=== PATIENT | male | born 1970 | race Caucasian/White ===

== ENCOUNTER 2017-09-29 07:13 | Emergency (ER) | payer OTHER ==
[~2017-09-29] VITALS: Ht 182.9 cm; Wt 104.7 kg
[~2017-09-29 07:13] MED LIST: LRT5 PO
[2017-09-29 07:21] VITALS: TEMP 36.7; Ht 182.9 cm; Wt 104.7 kg
[2017-09-29] MEDS ORDERED: HYDROmorphone INJ 2 MG/ML SYR/VIAL IV STA (07:27)
[2017-09-29] MEDS ORDERED: ONDANSETRON INJ 2 MG/ML 2 ML VIAL IV STA (07:27)
[2017-09-29] MEDS ORDERED: KETOROLAC TROMETHAMINE 30 MG/ML VIAL IV STA (07:27)
[2017-09-29 07:54] LABS: BASO % 0.2 %; BASO ABS # 0.03 K/uL (0-0.2); COMPLETE YES; EOS % 0.7 %; HEMATOCRIT 41.9 % (42-52); IG% 0.6 %; LYMPH % 12.1 %; LYMPH ABS # 1.95 K/uL (1.2-3.4); MEAN CELL VOLUME 97.9 fL (80-100); MEAN CORPUSCULAR HEMOGLOBIN 34.6 pg (25-34); MEAN CORPUSCULAR HGB CONC 35.3 g/dl (32-36); MEAN PLATELET VOLUME 9.8 fL (7.4-10.4); MONO % 6.9 %; NEUT % 79.5 %; PLATELET COUNT 195 K/uL (130-400); RED BLOOD COUNT 4.28 M/uL (4.7-6.1); WHITE BLOOD COUNT 16.06 K/uL (4.8-10.8)
[2017-09-29] MEDS ORDERED: VNTHFA/IN INH (07:54)
[2017-09-29] MEDS ORDERED: FLUT0.15 NAE (07:54)
[2017-09-29 08:01] LABS: PROTHROMBIN TIME (PATIENT) 10.6 SECONDS (9.0-12.0)
[2017-09-29 08:07] LABS: CALCIUM 8.6 mg/dl (8.5-10.1); POTASSIUM 3.5 mmol/L (3.5-5.1)
[2017-09-29] MEDS ORDERED: DIAZEPAM INJ 5 MG/ML 2 ML CARP IV STA (08:09)
[2017-09-29] MEDS: HYDROmorphone INJ 1 MG/ML SYR IV STA ×2 (08:09→08:35)
[2017-09-29 08:10] LABS: BUN/CREATININE RATIO 15.9 (10-20); CREATININE 1.43 mg/dl (0.60-1.40)
[2017-09-29 08:13] LABS: ALB/GLOB RATIO 1.1 (0.9-2); C-REACTIVE PROTEIN 7.22 mg/dl (0-0.29)
[2017-09-29 08:50] VITALS: O2SAT 96
--- NOTE | 2017-09-29 08:50 | DIAGNOSTIC IMAGING REPORT ---
L-SPINE MIN 4 VIEWS ROUTINE CLINICAL HISTORY: Back pain with left leg radiculopathy. COMPARISON STUDY: No previous studies for comparison. FINDINGS: There is scattered stool throughout the colon. There is no pathologic bowel dilatation. There are moderate multilevel degenerative changes within the lumbar spine. No acute fractures or traumatic subluxations are visualized. No destructive lesions are evident on conventional radiographic imaging. IMPRESSION: Degenerative change. No acute fractures are visualized. Electronically signed by: Krzysztof Cain M.D. 09/29/2017 8:48 AM Dictated Date/Time: 09/29/2017 8:47 AM
[2017-09-29 10:39] LABS: URINE APPEARANCE CLOUDY (CLEAR); URINE BILIRUBIN NEG (NEG); URINE COLOR YELLOW; URINE EPITHELIAL CELL AUTO 20-30 /lpf (0-5); URINE NITRITE NEG (NEG); UROBILINOGEN NEG (NEG)
[2017-09-29 10:40] LABS: MANUAL MICROSCOPIC REQUIRED? NO; REVIEW REQ? YES
--- NOTE | 2017-09-29 10:50 | DIAGNOSTIC IMAGING REPORT ---
LUMBAR SPINE W/O CONTRAST HISTORY: Pain. Neuropathy. LEFT LOW BACK PAIN RADIATING INTO LEG, LEG WEAKNESS TECHNIQUE: Multiplanar multisequence MRI of the lumbar spine was performed without the use of contrast. COMPARISON: 11/20/2006 FINDINGS: For the purpose of the report the L5-S1 disc space will be located on axial image 27 of 30. Findings are generally stable significant degenerative disc change throughout the entire lumbar region. Posterior bulging disc L4-L5 in general similar compared to the prior study. Sagittal images do not suggest a major disc herniation. Bone marrow replacing process at L3 as well as posterior aspect of L5 appear to be similar. L1-L2: Left lateral bulging disc slightly increased in prominence from the prior study. Mild narrowing left neural foramina. L2-L3: Enlargement of the left nerve root at L2-L3 as well as paraspinal changes consistent with the patient is known history of neurofibromatosis. This is unchanged. No significant compromise of the spinal canal. L3-L4: Paraspinal soft tissue density is again stable from the prior exam. L4-L5: Improved right posterior bulging disc compared to the prior study. No current significant disc herniation. Slightly progressive left paraspinous soft tissue prominence in a greatest dimension of 2.0 cm. L5-S1: No major disc herniation or spinal stenosis. Paraspinal soft tissue components slightly progressive. IMPRESSION: 1. Findings again consistent with neurofibromatosis perhaps slightly increased in prominence in the low lumbar region compared to the prior study. 2. No major compromise of the spinal canal. 3. Improved L4-L5 changes compared to the prior exam. The right posterior bulging disc is diminished in prominence. 4. Considerable degenerative disc change stable from the prior study. The above report was generated using voice recognition software. It may contain grammatical, syntax or spelling errors. Electronically signed by: James Lilly M.D. 09/29/2017 10:48 AM Dictated Date/Time: 09/29/2017 10:16 AM
[2017-09-29 10:58] LABS: URINE PATH CASTS 5-10 GRANULAR CASTS /lpf (0)
[2017-09-29] MEDS ORDERED: OXYC1TAB3 PO (12:05)
[2017-09-29] MEDS ORDERED: ONDA4TAB10 SL (12:05)
[2017-09-29] MEDS ORDERED: METH4PAK PO (12:05)
--- NOTE | 2017-09-29 12:06 | EMERGENCY ROOM VISIT NOTE ---
History First contact with patient: 07:26 Chief Complaint: BACK PAIN Stated Complaint: BACK THROWN OUT History of Present Illness Patient is a generally healthy 47-year-old white male with past medical history significant for neurofibromatosis, who is brought to the emergency department by his family for evaluation of severe left low back pain radiating to the left leg. He has had pain for about 5 days. His symptoms started last Friday, and were initially mild and manageable at home. He was using ibuprofen, which was working initially, then became ineffective. His symptoms markedly worsened in the last 24 hours. He had Vicodin, which he took last evening initially which helped with his pain, then he tried to take another dose when he woke up at 4:00 this morning, which made him nauseous. He describes a sharp, stabbing left low back pain that radiates into the left buttock/hip and down the left thigh. He reports numbness in the left leg, which is new in the last day, and states that this morning, when he tried to get out of bed his left leg "wouldn' t work." He states he was not able to stand, and states that his leg is weak. He denies any bowel or bladder incontinence or saddle anesthesias. He denies any falls or direct trauma to the back. He does report that he was active and was hunting last weekend, and was squatting a lot, which he states normally would aggravate his back. He presently rates his discomfort a 10/10. He reports the beginning of last week he was sick with a "sinus infection", he reports fever and chills, body and muscle aches and sinus and nasal congestion. He was treated with a Z-Jason which he finished 2 days ago, and reports the symptoms have improved. He has not had any further fevers. Review of Systems Review of systems as per HPI. All other systems reviewed were negative. 10 systems reviewed. Past Medical/Surgical History Medical Problems: (1) Asthma (2) Environmental and seasonal allergies (3) Neurofibromatosis, Unspecified Electronic medical records are reviewed and summarized as above/below. See Problem List. Social History Smoking Status: Never Smoker Marital Status: Housing Status: lives with family Occupation Status: employed Current/Historical Medications Scheduled Methylprednisolone (Medrol Dosepak), 0 PO DAILY Scheduled PRN Albuterol Hfa (Ventolin Hfa), 2-4 PUFFS INH Q6H PRN for SOB/Wheezing Fluticasone Propionate (Nasal) (Flonase Allergy Relief), 1 SPRAY RAJAN UD PRN for ALLERGIES Ondasetron Odt (Zofran Odt), 4 MG SL Q6H PRN for Nausea or Vomiting Oxycodone Immediate Rel Tab (Roxicodone Ir), 1-2 TAB PO Q4H PRN for Severe Pain Physical Exam Vital Signs Date Time Temp Pulse Resp B/P (MAP) Pulse Ox O2 Delivery O2 Flow Rate FiO2 09/29/17 12:20 74 20 129/72 97 09/29/17 10:29 86 18 131/66 96 Room Air 09/29/17 09:26 90 16 128/78 96 Room Air 09/29/17 09:00 89 16 128/78 96 Oxymask 6.0 09/29/17 08:50 96 Oxymask 6.0 09/29/17 08:50 89 09/29/17 08:33 92 16 146/70 97 Room Air 09/29/17 07:55 96 Room Air 09/29/17 07:21 36.7 93 18 105/89 99 Room Air Physical Exam PHYSICAL EXAM: Vital Signs: Reviewed Nurse's notes. CONSTITUTIONAL: Patient is a significantly uncomfortable 47 old white male who is awake and alert and laying on the gurney in moderate distress due to their back pain. There is significant discomfort with position changes, and he is having difficulty finding a comfortable position. NECK: No bruits auscultated. Supple without lymphadenopathy. No thyromegaly. No meningeal signs. Full active range of motion without discomfort. CARDIOVASCULAR: Regular rate and rhythm, with normal S1 and S2, no murmur or gallop or rub is heard. No carotid bruits auscultated. No JVD. Peripheral pulses easily palpable. RESPIRATORY: Breath sounds equal and clear to auscultation without wheezes, rales, or rhonchi heard. Full and equal chest expansion without accessory muscle use or retractions. ABDOMEN: Bowel sounds are present. Abdomen is soft, nontender and nondistended. INTEGUMENTARY: No lesions or rash, normal skin turgor. LYMPH: No lymphadenopathy. SPINE: Examination of the patient's back does not demonstrate any ecchymosis, abrasions or outward signs of trauma. No erythema, increased warmth or induration. Patient has midline discomfort to palpation over the low lumbar spine, primarily on the left. There is no pain over the SI joint or the sciatic notch. He has increased pain with range of motion including rotation and flexion. EXTREMITIES: Leg lengths are symmetrical. Negative logroll bilaterally. Normal strength including dorsi-flexion and plantar flexion of the great toes and ankles and flexion and extension of the knees and flexion of the hips. Negative bilateral straight leg raise testing. Lower extremity DTRs are equal and symmetrical bilaterally. Distal pulses are easily palpable. Sensation light touch is intact over the lower extremities bilaterally. Medical Decision & Procedures ER Provider Diagnostic Interpretation: L-SPINE MIN 4 VIEWS ROUTINE CLINICAL HISTORY: Back pain with left leg radiculopathy. COMPARISON STUDY: No previous studies for comparison. FINDINGS: There is scattered stool throughout the colon. There is no pathologic bowel dilatation. There are moderate multilevel degenerative changes within the lumbar spine. No acute fractures or traumatic subluxations are visualized. No destructive lesions are evident on conventional radiographic imaging. IMPRESSION: Degenerative change. No acute fractures are visualized. LUMBAR SPINE W/O CONTRAST HISTORY: Pain. Neuropathy. LEFT LOW BACK PAIN RADIATING INTO LEG, LEG WEAKNESS TECHNIQUE: Multiplanar multisequence MRI of the lumbar spine was performed without the use of contrast. COMPARISON: 11/20/2006 FINDINGS: For the purpose of the report the L5-S1 disc space will be located on axial image 27 of 30. Findings are generally stable significant degenerative disc change throughout the entire lumbar region. Posterior bulging disc L4-L5 in general similar compared to the prior study. Sagittal images do not suggest a major disc herniation. Bone marrow replacing process at L3 as well as posterior aspect of L5 appear to be similar. L1-L2: Left lateral bulging disc slightly increased in prominence from the prior study. Mild narrowing left neural foramina. L2-L3: Enlargement of the left nerve root at L2-L3 as well as paraspinal changes consistent with the patient is known history of neurofibromatosis. This is unchanged. No significant compromise of the spinal canal. L3-L4: Paraspinal soft tissue density is again stable from the prior exam. L4-L5: Improved right posterior bulging disc compared to the prior study. No current significant disc herniation. Slightly progressive left paraspinous soft tissue prominence in a greatest dimension of 2.0 cm. L5-S1: No major disc herniation or spinal stenosis. Paraspinal soft tissue components slightly progressive. IMPRESSION: 1. Findings again consistent with neurofibromatosis perhaps slightly increased in prominence in the low lumbar region compared to the prior study. 2. No major compromise of the spinal canal. 3. Improved L4-L5 changes compared to the prior exam. The right posterior bulging disc is diminished in prominence. 4. Considerable degenerative disc change stable from the prior study. Laboratory Results 09/29/17 07:40 Red Blood Count 4.28, Mean Corpuscular Volume 97.9, Mean Corpuscular Hemoglobin 34.6, Mean Corpuscular Hemoglobin Concent 35.3, Mean Platelet Volume 9.8, Neutrophils (%) (Auto) 79.5, Lymphocytes (%) (Auto) 12.1, Monocytes (%) (Auto) 6.9, Eosinophils (%) (Auto) 0.7, Basophils (%) (Auto) 0.2, Neutrophils # (Auto) 12.76, Lymphocytes # (Auto) 1.95, Monocytes # (Auto) 1.11, Eosinophils # (Auto) 0.12, Basophils # (Auto) 0.03 09/29/17 07:40 Test 09/29/17 07:40 09/29/17 10:25 White Blood Count 16.06 K/uL (4.8-10.8) Red Blood Count 4.28 M/uL (4.7-6.1) Hemoglobin 14.8 g/dL (14.0-18.0) Hematocrit 41.9 % (42-52) Mean Corpuscular Volume 97.9 fL (80-100) Mean Corpuscular Hemoglobin 34.6 pg (25-34) Mean Corpuscular Hemoglobin Concent 35.3 g/dl (32-36) Platelet Count 195 K/uL (130-400) Mean Platelet Volume 9.8 fL (7.4-10.4) Neutrophils (%) (Auto) 79.5 % Lymphocytes (%) (Auto) 12.1 % Monocytes (%) (Auto) 6.9 % Eosinophils (%) (Auto) 0.7 % Basophils (%) (Auto) 0.2 % Neutrophils # (Auto) 12.76 K/uL (1.4-6.5) Lymphocytes # (Auto) 1.95 K/uL (1.2-3.4) Monocytes # (Auto) 1.11 K/uL (0.11-0.59) Eosinophils # (Auto) 0.12 K/uL (0-0.5) Basophils # (Auto) 0.03 K/uL (0-0.2) RDW Standard Deviation 46.4 fL (36.4-46.3) RDW Coefficient of Variation 13.0 % (11.5-14.5) Immature Granulocyte % (Auto) 0.6 % Immature Granulocyte # (Auto) 0.09 K/uL (0.00-0.02) Erythrocyte Sedimentation Rate 6 mm/hr (0-14) Prothrombin Time 10.6 SECONDS (9.0-12.0) Prothromb Time International Ratio 1.0 (0.9-1.1) Activated Partial Thromboplast Time 25.4 SECONDS (21.0-31.0) Partial Thromboplastin Ratio 1.0 Anion Gap 11.0 mmol/L (3-11) Est Creatinine Clear Calc Drug Dose 81.6 ml/min Estimated GFR () 68.1 Estimated GFR (Non- 58.7 BUN/Creatinine Ratio 15.9 (10-20) Calcium Level 8.6 mg/dl (8.5-10.1) Total Bilirubin 0.9 mg/dl (0.2-1) Aspartate Amino Transf (AST/SGOT) 21 U/L (15-37) Alanine Aminotransferase (ALT/SGPT) 19 U/L (12-78) Alkaline Phosphatase 59 U/L (45-117) C-Reactive Protein 7.22 mg/dl (0-0.29) Total Protein 7.6 gm/dl (6.4-8.2) Albumin 3.9 gm/dl (3.4-5.0) Globulin 3.7 gm/dl (2.5-4.0) Albumin/Globulin Ratio 1.1 (0.9-2) Urine Color YELLOW Urine Appearance CLOUDY (CLEAR) Urine pH 5.0 (4.5-7.5) Urine Specific [place] 1.020 (1.000-1.030) Urine Protein TRACE (NEG) Urine Glucose (UA) NEG (NEG) Urine Ketones NEG (NEG) Urine Occult Blood TRACE (NEG) Urine Nitrite NEG (NEG) Urine Bilirubin NEG (NEG) Urine Urobilinogen NEG (NEG) Urine Leukocyte Esterase NEG (NEG) Urine WBC (Auto) 1-5 /hpf (0-5) Urine RBC (Auto) 5-10 /hpf (0-4) Urine Hyaline Casts (Auto) 10-30 /lpf (0-5) Urine Epithelial Cells (Auto) 20-30 /lpf (0-5) Urine Bacteria (Auto) NEG (NEG) Urine Crystals CALCIUM OXALATE (NONE Urine Pathogenic Casts 5-10 GRANULAR CASTS /lpf (0) Medications Administered Medications (Trade) Dose Ordered Sig/Yvonne Route Start Time Stop Time Status Last Admin Dose Admin Hydromorphone HCl (Dilaudid Inj) 2 mg NOW STAT IV 09/29/17 07:27 09/29/17 07:29 DC 09/29/17 07:39 2 MG Ketorolac Tromethamine (Toradol Inj) 30 mg NOW STAT IV 09/29/17 07:27 09/29/17 07:29 DC 09/29/17 07:39 30 MG Ondansetron HCl (Zofran Inj) 4 mg NOW STAT IV 09/29/17 07:27 09/29/17 07:29 DC 09/29/17 07:39 4 MG Diazepam (Valium Inj) 10 mg NOW STAT IV 09/29/17 08:09 09/29/17 08:11 DC 09/29/17 08:35 10 MG ED Course The patient was seen and assessed as above. He was noted to be in significant distress due to his discomfort. IV lock was initiated. He was medicated with Dilaudid 2 mg, Toradol 30 mg and Zofran 4 mg IV. He was assessed by the physician speech language pathologist assistant student, then myself. Laboratory studies were collected including urine dip, CBC with differential, sedimentation rate, CRP, coags and CMP. On physical examination, he has marked left low back and left proximal leg pain, but has good strength. He did have a very slightly diminished left patellar reflex when compared to the right, this could be related to pain and guarding. Lumbar spine x-rays were obtained, and noted some very mild degenerative changes. The patient returned from x-ray, and continued snow discomfort. Given his severe pain, and the reported weakness of the left leg, lumbar spine MRI was ordered. The patient was ordered Valium 10 mg IV and additional Dilaudid 1 mg IV. Valium was administered first, which caused the patient to become hypoxic. He was awake and easily arousable however, and oxygen saturation improved with O2 by mask. The additional 1 mg of Dilaudid was not administered. The patient ultimately had excellent relief of his pain, he was able to tolerate the MRI without difficulty, and was much more comfortable when he returned to the exam room. He was able to ambulate independently into the restroom to provide a urine sample. Laboratory studies noted a white count of 16,000, unclear whether this is related to stress or pain. H&H is normal. Inflammatory markers are not elevated. Electronic within normal limits. BUN and creatinine up to slightly from baseline at 23 and 1.43. Liver functions are otherwise unremarkable. Coags are unremarkable. Urinalysis noted trace occult blood and 5-10 RBCs, with casts and epithelial cells. He also had calcium oxalate crystals noted. Lumbar spine MRI was essentially unremarkable. He has findings consistent with neurofibromatosis perhaps slightly increased in prominence of the low lumbar region. There is no compromise of the spinal canal. He has considerable degenerative disc disease throughout the lumbar spine that is stable compared to prior MRI. The patient was reassessed, and made aware of the results of his MRI and laboratory studies. The patient's pain is in the low lumbar spine and radiating into the left leg, it does not appear to be in a flank distribution, and he has no urinary symptoms or CVA tenderness. It was not felt that his left -sided back pain was urologic related, despite the findings on urinalysis, however possibility of a kidney stone was discussed with the patient and his family however again I feel that his pain is more related to the lumbar spine and musculoskeletal in nature. DVT was also considered, but felt to be less likely and the patient has no risk factors. His physical exam findings are not consistent with acute cord compression or cauda equina syndrome. I do not suspect diskitis, epidural abscess, hematoma or neurovascular compromise. The patient will be discharged home on a Medrol Dosepak, oxycodone, and was given Zofran should be narcotics cause ongoing nausea. He was encouraged to follow up with his primary care provider this week for further care and evaluation of his symptoms. The patient expressed understanding of this and was agreeable. The patient rated his pain a 2/10 at discharge, and was ambulatory independently out of the exam room with family. Medical Decision See ED Course. [place] Drug Monitoring Program Search Results: patient reviewed within database, no issues identified Medication Reconcilliation Current Medication List: was personally reviewed by me Blood Pressure Screening Patient's blood pressure: Normal blood pressure Blood pressure disposition: Did not require urgent referral Impression Primary Impression: Lumbar back pain with radiculopathy affecting left lower extremity Departure Information Prescriptions Oxycodone Immediate Rel Tab (ROXICODONE IR) 5 Mg Tab 1-2 TAB PO Q4H Y for Severe Pain, #25 TAB For Initial Treatment Prov: Leia Joyner PA 09/29/17 Ondasetron Odt (ZOFRAN ODT) 4 Mg Tab 4 MG SL Q6H Y for Nausea or Vomiting, #20 TAB Prov: Leia Joyner PA 09/29/17 Methylprednisolone (MEDROL DOSEPAK) 4 Mg Jason 0 PO DAILY, #1 PKT ONCE DAILY DIRECTED. Prov: Leia Joyner PA 09/29/17 Referrals No Doctor, Assigned (PCP) Patient Instructions My [facility] Additional Instructions DO NOT drive, drink alcohol, operate machinery, or perform dangerous activities today. You were given medications in the ER that can affect your ability to safely function or operate a vehicle. Medrol Dosepak: Once daily until the prescription is finished. It is best to take this earlier in the day as some patients note occasional difficulty falling asleep when taken in the late evening. Oxycodone (OxyIR) 5mg: Take 1-2 pills every four hours for breakthrough pain. Avoid alcohol, operating machinery or dangerous equipment, working on ladders or roofs, DRIVING, or situations where being under the influence may be dangerous. It is recommended to use an [id number] stool softener such as Colace, 100mg twice daily while taking this medication to avoid constipation. Zofran(odansetron) tablets 4mg: Take one and allow it to dissolve in your mouth every four to six hours as needed for nausea or vomiting. Acetaminophen(Tylenol) may be used for fever or pain. Use 1000mg every six hours as needed. Avoid using more than 3000mg in a 24 hour period. This medication can be taken if you need to drive, work, or perform activities which may be dangerous when taking narcotic pain medication. Rest and avoid heavy lifting until your symptoms resolve and then gradually return to full activity. A good rule of thumb is if it hurts your back to perform a certain activity, then it should be avoided until you are healthy again. A heating pad, warm compresses, or a hot shower may help with tight muscles and can be done several times a day as needed. Continue current medications. Return to the ER immediately for any numbness, tingling, severe pain, loss of control of your bowels or bladder, inability to walk, or as needed. Follow up with your primary care physician within 3-5 days for a recheck of your current condition.
[2017-09-29 12:20] VITALS: BP 129/72; PULSE 74; O2SAT 97
== END 2017-09-29 12:22 | disposition home or self-care (01) ==
LOC: C.EDB 07:13 → C.EDA 12:22
DX: M54.16 Radiculopathy, lumbar region (principal); Q85.00 Neurofibromatosis, unspecified; J45.909 Unspecified asthma, uncomplicated

== ENCOUNTER 2017-10-02 01:12 | Inpatient (IN) | payer OTHER ==
[~2017-10-02] VITALS: Ht 182.9 cm; Wt 100.0 kg
[~2017-10-02 01:12] MED LIST changes: +FLUT0.15 NAE; -LRT5 PO; +METH4PAK PO; +ONDA4TAB10 SL; +OXYC1TAB3 PO; +VNTHFA/IN INH
[2017-10-02] MEDS ORDERED: DIAZEPAM INJ 5 MG/ML 2 ML CARP IV STA (02:37)
--- NOTE | 2017-10-02 02:39 | EMERGENCY ROOM VISIT NOTE ---
History Report prepared by Kimmy: Satish You Under the Supervision of: Dr. Afsaneh Ohara D.O. First contact with patient: 01:29 Chief Complaint: BACK PAIN Stated Complaint: BACK PAIN,NUMB LEGS History of Present Illness The patient is a 47 year old male who presents to the Emergency Room with complaints of lower back pain that began 1.5 weeks ago. He has a past medical history of neurofibromatosis. At that time, his pain was radiating down his left leg into his calf. He then began to experience left leg swelling four days ago. He came to the ER three days ago and received an MRI. He was then discharged. Yesterday, he saw an Orthopedist JAYME at [facility] who read his MRI as a "possible fatty tissue pressing on his kidney." Today, he began having an intermittent shooting jolt starting from his left flank and radiating down to his left foot. He states that his leg is more swollen and becomes numb when the pain presents itself. He notes that he recently has been having some mild burning with urination and a slow stream. He took two Percocet and a Tylenol two hours ago, which is not working. He was not given muscle relaxers in his past ER visits, but was placed on Narcotics and Prednisone which has made him have slower bowel movements. He denies any fevers or chills. He denies any previous kidney issues. Source of History: patient Onset: 1.5 weeks ago Position: back (lower) Symptom Intensity: severe Quality: ache Timing: constant Associated Symptoms: + back pain (Left flank pain radiating down to his left foot intermittently), + urinary symptoms (slow stream and mild burning), + numbness (when the flank pain is present), No fevers, No chills Review of Systems See HPI for pertinent positives & negatives. A total of 10 systems reviewed and were otherwise negative. Past Medical & Surgical Medical Problems: (1) Asthma (2) Environmental and seasonal allergies (3) Neurofibromatosis, Unspecified Family History Patient reports no known family medical history. Social History Smoking Status: Never Smoker Marital Status: Housing Status: lives with family Occupation Status: employed Current/Historical Medications Scheduled Methylprednisolone (Medrol Dosepak), 0 PO DAILY Scheduled PRN Albuterol Hfa (Ventolin Hfa), 2-4 PUFFS INH Q6H PRN for SOB/Wheezing Fluticasone Propionate (Nasal) (Flonase Allergy Relief), 1 SPRAY RAJAN UD PRN for ALLERGIES Ondasetron Odt (Zofran Odt), 4 MG SL Q6H PRN for Nausea or Vomiting Oxycodone Immediate Rel Tab (Roxicodone Ir), 1-2 TAB PO Q4H PRN for Severe Pain Allergies Coded Allergies: No Known Allergies (Unverified , 09/29/17) Physical Exam Vital Signs Date Time Temp Pulse Resp B/P (MAP) Pulse Ox O2 Delivery O2 Flow Rate FiO2 10/02/17 05:30 80 16 139/71 93 Room Air 10/02/17 05:15 82 18 136/67 98 Room Air 10/02/17 04:25 94 20 129/68 95 Room Air 10/02/17 02:50 95 Nasal Cannula 3.0 10/02/17 01:24 36.3 89 20 136/82 98 Room Air Physical Exam GENERAL: alert, well appearing, well nourished, moderate distress, non-toxic EYE EXAM: normal conjunctiva OROPHARYNX: no exudate, no erythema, lips, buccal mucosa, and tongue normal and mucous membranes are dry NECK: supple, no nuchal rigidity, no adenopathy, non-tender LUNGS: Clear to auscultation. Normal chest wall mechanics HEART: no murmurs, S1 normal and S2 normal ABDOMEN: abdomen soft, non-tender, normo-active bowel sounds, no masses, no rebound or guarding. BACK: Back is symmetrical on inspection and there is no deformity, no midline tenderness. Tenderness to the left lower back. SKIN: no rashes and no bruising UPPER EXTREMITIES: upper extremities are grossly normal. LOWER EXTREMITIES: Left lower extremity with 1 to 2 + edema. Normal pulses. Normal capillary refill. Patellar reflexes are 2/4 bilaterally. NEURO EXAM: Normal sensorium, cranial nerves II-XII grossly intact, normal speech, no gross weakness of arms, no gross weakness of legs. Medical Decision & Procedures ER Provider Diagnostic Interpretation: Radiology results have been interpreted by the radiologist and reviewed by me. US RENAL: No hydronephrosis. Left parapelvic cyst measuring 3.6 x 2.2 x 2.0 cm Cystic structure at the midline midline pelvis. This may represent irregular shaped bladder versus cystic mass. Ct would be more definitive. Mass adjacent spleen measuring 5.8 x 3.9 x 3.0 cm. Again, CT would be more definitive. Thrombus visualized in the distal IVC and bilateral iliac veins. Radiologist: Dariel Severino M.D. US VENOUS LEFT LOWER EXTREMITY: Extensive DVT involving all veins from groin to calf vessels. No mass or hematoma. Radiologist: Dariel Severino M.D. CTA CHEST: No evidence of PE. Lungs are clear. No pleural effusions. No adenopathy. Heart size is normal. Aorta is unremarkable. Dilated azygos vein. Radiologist: Dariel Severino M.D. CTA ABDOMEN & PELVIS With Contrast: Chronic-appearing thrombus within the IVC, iliac veins, and femoral veins bilaterally with note of complete occlusion. There is inflammation particularly about the iliac and femoral veins suggestive of thrombophlebitis. Alternative venous drainage through the azygos system. Mild left hydroureteronephrosis. A radiopaque obstructing calculus is now seen distally. Consider a recently passed calculus. Correlate with urinalysis to exclude infection. No aortic dissection. No PE. No appendicitis, colitis, diverticulitis or bowel obstruction. No free air, free fluid or other acute disease. Radiologist: Dariel Severino M.D. Laboratory Results 10/02/17 02:00 Red Blood Count 3.73, Mean Corpuscular Volume 97.6, Mean Corpuscular Hemoglobin 33.5, Mean Corpuscular Hemoglobin Concent 34.3, Mean Platelet Volume 10.4, Neutrophils (%) (Auto) 79.5, Lymphocytes (%) (Auto) 9.7, Monocytes (%) (Auto) 9.8, Eosinophils (%) (Auto) 0.1, Basophils (%) (Auto) 0.2, Neutrophils # (Auto) 10.36, Lymphocytes # (Auto) 1.27, Monocytes # (Auto) 1.28, Eosinophils # (Auto) 0.01, Basophils # (Auto) 0.02 10/02/17 02:00 Test 10/02/17 02:00 10/02/17 04:22 White Blood Count 13.03 K/uL (4.8-10.8) Red Blood Count 3.73 M/uL (4.7-6.1) Hemoglobin 12.5 g/dL (14.0-18.0) Hematocrit 36.4 % (42-52) Mean Corpuscular Volume 97.6 fL (80-100) Mean Corpuscular Hemoglobin 33.5 pg (25-34) Mean Corpuscular Hemoglobin Concent 34.3 g/dl (32-36) Platelet Count 129 K/uL (130-400) Mean Platelet Volume 10.4 fL (7.4-10.4) Neutrophils (%) (Auto) 79.5 % Lymphocytes (%) (Auto) 9.7 % Monocytes (%) (Auto) 9.8 % Eosinophils (%) (Auto) 0.1 % Basophils (%) (Auto) 0.2 % Neutrophils # (Auto) 10.36 K/uL (1.4-6.5) Lymphocytes # (Auto) 1.27 K/uL (1.2-3.4) Monocytes # (Auto) 1.28 K/uL (0.11-0.59) Eosinophils # (Auto) 0.01 K/uL (0-0.5) Basophils # (Auto) 0.02 K/uL (0-0.2) RDW Standard Deviation 46.4 fL (36.4-46.3) RDW Coefficient of Variation 13.0 % (11.5-14.5) Immature Granulocyte % (Auto) 0.7 % Immature Granulocyte # (Auto) 0.09 K/uL (0.00-0.02) Prothrombin Time 10.7 SECONDS (9.0-12.0) Prothromb Time International Ratio 1.0 (0.9-1.1) Anion Gap 8.0 mmol/L (3-11) Est Creatinine Clear Calc Drug Dose 107.8 ml/min Estimated GFR () 97.8 Estimated GFR (Non- 84.3 BUN/Creatinine Ratio 12.9 (10-20) Calcium Level 9.0 mg/dl (8.5-10.1) Magnesium Level 1.9 mg/dl (1.8-2.4) Total Bilirubin 1.2 mg/dl (0.2-1) Aspartate Amino Transf (AST/SGOT) 25 U/L (15-37) Alanine Aminotransferase (ALT/SGPT) 19 U/L (12-78) Alkaline Phosphatase 49 U/L (45-117) Troponin I < 0.015 ng/ml (0-0.045) Total Protein 7.2 gm/dl (6.4-8.2) Albumin 3.4 gm/dl (3.4-5.0) Globulin 3.8 gm/dl (2.5-4.0) Albumin/Globulin Ratio 0.9 (0.9-2) Urine Color YELLOW Urine Appearance CLEAR (CLEAR) Urine pH 7.0 (4.5-7.5) Urine Specific [place] 1.014 (1.000-1.030) Urine Protein NEG (NEG) Urine Glucose (UA) NEG (NEG) Urine Ketones TRACE (NEG) Urine Occult Blood 1+ (NEG) Urine Nitrite NEG (NEG) Urine Bilirubin NEG (NEG) Urine Urobilinogen NEG (NEG) Urine Leukocyte Esterase NEG (NEG) Urine WBC (Auto) 1-5 /hpf (0-5) Urine RBC (Auto) 5-10 /hpf (0-4) Urine Hyaline Casts (Auto) 1-5 /lpf (0-5) Urine Epithelial Cells (Auto) 0-5 /lpf (0-5) Urine Bacteria (Auto) NEG (NEG) Laboratory results per my review. Medications Administered Medications (Trade) Dose Ordered Sig/Yvonne Route Start Time Stop Time Status Last Admin Dose Admin Diazepam (Valium Inj) 5 mg NOW STAT IV 10/02/17 02:37 10/02/17 02:38 DC 10/02/17 02:37 5 MG Morphine Sulfate (MoRPHine SULFATE INJ) 4 mg NOW STAT IV 10/02/17 04:27 10/02/17 04:28 DC 10/02/17 04:32 4 MG Ondansetron HCl (Zofran Inj) 4 mg NOW STAT IV 10/02/17 04:46 10/02/17 04:47 DC 10/02/17 04:49 4 MG Morphine Sulfate (MoRPHine SULFATE INJ) 6 mg NOW STAT IV 10/02/17 05:37 10/02/17 05:38 DC 10/02/17 05:42 6 MG ECG Indication: abdominal pain Rate (beats per minute): 77 Rhythm: normal sinus Findings: RBBB (incomplete), T-wave inversion (III), no acute ischemic change, other (Normal axis) ED Course 0129: The patient was evaluated in room B4. A complete history and physical exam was performed. 0237: Ordered Valium Inj 5 mg IV 0427: Ordered Morphine Sulfate 4 mg IV 0429: I spoke with Dr. Arevalo at this time. We discussed the patient's case. He will perform a consultation with the patient. Patient updated on lower extremity ultrasound results. Patient still experiencing pain in the left lower extremity, now complaining of lower abdominal pain. Given extensive thrombus noted on lower 70 Doppler and new complaint of abdominal pain as well as recent worsening back pain, CT of the chest/abdomen/pelvis added. 0446: Ordered Zofran Inj 4 mg IV 0508: I spoke again with Dr. Arevalo at this time. He accepted the patient for further management and care. I updated the patient on this plan of action. He is agreeable. 0537: Ordered Morphine Sulfate 6 mg IV. Medical Decision Differential diagnoses considered include DVT, musculoskeletal, infection, joint effusion, trauma, lymphedema, idiopathic, CHF, fracture, dislocation, neurovascular compromise, compartment syndrome, soft tissue injury, as well as others. Despite recent reassuring MRI patient presented with worsening pain including the left lower extremity with increased edema. A Doppler revealed extensive lower extremity DVT extending proximally with complete occlusion. Given no prior history of DVT or known hypercoagulable disorder, discussed with Dr. Juanito Hanson for possible evaluation for admission. Patient requiring additional IV pain medications here for the pain. Renal ultrasound given recent back pain also then revealed a possible mass next to the spleen as well as clot in the patient's IVC. Patient again complained of abdominal pain, was sent for CAT scans of the chest abdomen and pelvis. Dr. Paredes performed a consultation the emergency room and agreed the patient would benefit from additional inpatient evaluation. Patient hemodynamically stable, had a brief episode of mild hypoxia to 88% 1 morphine given, however immediately return to mid 90s and did not require additional supplemental O2. Patient with no chest pain or shortness of breath to otherwise suggest PE. Medication Reconcilliation Current Medication List: was personally reviewed by me Blood Pressure Screening Patient's blood pressure: Elevated blood pressure Blood pressure disposition: Elevated BP felt to be situational Consults Time Called: 042 Consulting Physician: Dr. Grzegorz Corona Hospitalist Returned Call: [phone] We discussed the patient's case. He will give the patient a consultation. Additional Consults: Time Called: 0504 Consulted Physician: Dr. Grzegorz Corona Hospitalist Returned Call: [phone] Additional Comments: I reviewed the patient's case with him. He will evaluate the patient for further management. Impression Primary Impression: Deep vein thrombosis (DVT) of left lower extremity Additional Impressions: Abdominal pain Back pain IVC thrombosis Critical Care I have personally spent greater than 40 minutes of critical care time in the direct management of this patient. This includes bedside care, interpretation of diagnostic studies, and testing, discussion with consultants, patient, and family members, and other required patient management activities. This 40 minutes is in excess of all separately billable procedures. Scribe Attestation The scribe's documentation has been prepared under my direction and personally reviewed by me in its entirety. I confirm that the note above accurately reflects all work, treatment, procedures, and medical decision making performed by me. Departure Information Dispostion Being Evaluated By Hospitalist Al Kirkland D.O. (PCP) Patient Instructions My [facility] Problem Qualifiers Primary Impression: Deep vein thrombosis (DVT) of left lower extremity Affected thrombotic vein of extremity: unspecified vein of extremity Chronicity: acute Qualified Codes: I82.402 - Acute embolism and thrombosis of unspecified deep veins of left lower extremity Additional Impressions: Abdominal pain Abdominal location: lower abdomen, unspecified Qualified Codes: R10.30 - Lower abdominal pain, unspecified Back pain Back pain location: low back pain Chronicity: acute Back pain laterality: left Sciatica presence: with sciatica Sciatica laterality: sciatica of left side Qualified Codes: M54.42 - Lumbago with sciatica, left side
[2017-10-02] MEDS ORDERED: MoRPHine SULFATE 4 MG/ML 1 ML CARP\\VIAL IV STA (04:27)
[2017-10-02 04:29] LABS: BASO % 0.2 %; BASO ABS # 0.02 K/uL (0-0.2); COMPLETE YES; EOS % 0.1 %; HEMATOCRIT 36.4 % (42-52); IG% 0.7 %; LYMPH % 9.7 %; LYMPH ABS # 1.27 K/uL (1.2-3.4); MEAN CELL VOLUME 97.6 fL (80-100); MEAN CORPUSCULAR HEMOGLOBIN 33.5 pg (25-34); MEAN CORPUSCULAR HGB CONC 34.3 g/dl (32-36); MEAN PLATELET VOLUME 10.4 fL (7.4-10.4); MONO % 9.8 %; NEUT % 79.5 %; PLATELET COUNT 129 K/uL (130-400); RED BLOOD COUNT 3.73 M/uL (4.7-6.1); WHITE BLOOD COUNT 13.03 K/uL (4.8-10.8)
[2017-10-02 04:34] LABS: PROTHROMBIN TIME (PATIENT) 10.7 SECONDS (9.0-12.0)
[2017-10-02 04:37] LABS: ALT/SGPT 19 U/L (12-78); AST/SGOT 25 U/L (15-37); BLOOD UREA NITROGEN 14 mg/dl (7-18); BUN/CREATININE RATIO 12.9 (10-20); CARBON DIOXIDE 25 mmol/L (21-32); CHLORIDE 99 mmol/L (98-107); CREATININE 1.06 mg/dl (0.60-1.40); GLUCOSE 135 mg/dl (70-99); POTASSIUM 3.7 mmol/L (3.5-5.1); SODIUM 132 mmol/L (136-145)
[2017-10-02 04:42] LABS: ALB/GLOB RATIO 0.9 (0.9-2); ALKALINE PHOSPHATASE 49 U/L (45-117)
[2017-10-02] MEDS ORDERED: OPTIRAY 320 IV PRN (04:45)
[2017-10-02] MEDS ORDERED: ONDANSETRON INJ 2 MG/ML 2 ML VIAL IV STA (04:46)
[2017-10-02] MEDS ORDERED: MoRPHine SULFATE 10 MG/ML CARP/VIAL IV STA (05:37)
[2017-10-02] MEDS ORDERED: POLYETHYLENE (MIRALAX) 17 GM PACK PO PRN (06:45)
[2017-10-02] MEDS ORDERED: PROCHLORPERAZINE INJ 5 MG in SYRINGE 4 ML IV PRN ×2 (06:45→07:00)
[2017-10-02] MEDS ORDERED: LORAZEPAM 2 MG/ML 1 ML VIAL IV PRN (06:45)
[2017-10-02 06:56] VITALS: O2SAT 96; Ht 182.9 cm; Wt 100.0 kg
[2017-10-02] MEDS ORDERED: HYDROmorphone INJ 0.5 MG/0.5 ML SYR IV ONE (07:00)
[2017-10-02] MEDS: HYDROmorphone INJ 0.5 MG/0.5 ML SYR IV PRN ×4 (07:29→22:32)
[2017-10-02] MEDS ORDERED: LORAZEPAM INJ 0.5 MG in SYRINGE 0.75 ML IV PRN (07:30)
--- NOTE | 2017-10-02 07:38 | DIAGNOSTIC IMAGING REPORT ---
CT ANGIOGRAM OF THE CHEST COMBO CLINICAL HISTORY: Deep venous thrombosis. COMPARISON STUDY: No priors. TECHNIQUE: Before and following the IV administration of 120 cc of Optiray 320, CT angiogram of the chest was performed from the upper abdomen to the thoracic inlet utilizing the pulmonary embolus protocol. Images are reviewed in the axial, sagittal, and coronal planes. 3-D MIPS images are created and assessed. IV contrast was administered without complication. A dose lowering technique was utilized adhering to the principles of ALARA. The examination is significantly degraded by poor contrast opacification of the pulmonary arteries. FINDINGS: Thyroid: Imaged portions of the thyroid gland are normal in size and attenuation. Thoracic aorta: The thoracic aorta is normal in caliber and demonstrates standard 3-vessel arch anatomy. No dissection is seen. Pulmonary vasculature: The pulmonary trunk is normal in caliber. There are no central filling defects identified in main or lobar pulmonary branches to suggest pulmonary embolus. Evaluation of the peripheral vessels is severely degraded by poor contrast opacification. Heart: The heart is top normal in size and without pericardial effusion. Lungs and pleural spaces: The lungs and pleural spaces are clear noting dependent atelectasis. The trachea and central airways are patent. Mediastinum: There is no mediastinal lymphadenopathy. There is prominence of the azygos vein. Katie: Clear. Axillae: There is no axillary lymphadenopathy. Upper abdomen: See report of abdominal CT performed concurrently for intra-abdominal findings. Skeletal structures: No lytic or blastic bony lesions are seen. IMPRESSION: 1. Examination is severely degraded by poor contrast opacification of pulmonary arteries. 2. There is no evidence of central pulmonary embolus in the main or lobar branches. The segmental and subsegmental branches cannot be assessed. 3. The lungs are clear. Electronically signed by: Wiliam Calzada M.D. 10/02/2017 7:36 AM Dictated Date/Time: 10/02/2017 7:30 AM
--- NOTE | 2017-10-02 07:40 | DIAGNOSTIC IMAGING REPORT ---
(RENAL)RETROPERITON COMP CLINICAL HISTORY: 47 years-old Male presenting with left flank pain, abnormality seen on MRI per ortho. TECHNIQUE: Real-time grayscale and limited color Doppler ultrasound imaging of the kidneys and bladder was performed. COMPARISON: CT performed subsequently the same day. FINDINGS: Right kidney: Normal echogenicity. Right kidney measures 10.7 cm. No hydronephrosis. No convincing evidence of calculus or mass. Normal perfusion. Right renal vein patent. Left kidney: Normal echogenicity. Left kidney measures 12.0 cm. No hydronephrosis. Multiple parapelvic cysts suspected though mild pelviectasis may also be present. Normal perfusion. Left renal vein patent proximally. Bladder: The long gated appearance of the partially decompressed bladder, which is mildly thick-walled. Other: Apparent filling defect expanding the lumen of the distal IVC and bilateral iliac veins consistent with thrombus. Patent bilateral iliac arteries. Slight bulbous appearance of the inferomedial spleen, which correlates to the appearance on CT. IMPRESSION: 1. Multiple prominent left parapelvic cysts suggested versus less likely hydronephrosis. 2. Thrombus in the distal IVC and bilateral iliac veins. Please see separately dictated CTA performed the same day. The left renal vein is patent proximally though abnormality of the left renal vein noted in the mid and distal portion better demonstrated on subsequent CTA. Right renal vein patent. 3. Mild bladder wall thickening allowing for the decompressed lumen. Correlate with urinalysis to exclude cystitis. Electronically signed by: Jeff Jon M.D. 10/02/2017 7:38 AM Dictated Date/Time: 10/02/2017 7:32 AM
[2017-10-02] MEDS ORDERED: NSS + 20MEQ KCL 1000ML 1,000 ML IV ONE (07:45)
--- NOTE | 2017-10-02 07:45 | DIAGNOSTIC IMAGING REPORT ---
ULTRASOUND LEFT LOWER EXTREMITY VENOUS CLINICAL HISTORY: Left leg swelling. COMPARISON STUDY: No priors. TECHNIQUE: Real-time, grayscale, and color Doppler sonography of the deep veins of the left lower extremity was performed from the inguinal crease to the calf. Compression and augmentation were utilized. FINDINGS: There is extensive occlusive deep venous thrombosis seen throughout the left lower extremity. This extends from the common femoral vein to the calf. Superficial thrombus is seen within the greater saphenous and profunda femoris veins. IMPRESSION: Extensive left lower extremity deep venous thrombosis as above. Electronically signed by: Wiliam Calzada M.D. 10/02/2017 7:43 AM Dictated Date/Time: 10/02/2017 7:25 AM
[2017-10-02] MEDS ORDERED: DOCUSATE SODIUM/SENNA 50/8.6MG TAB PO ONE (08:00)
[2017-10-02] MEDS ORDERED: POLYETHYLENE (MIRALAX) 17 GM PACK PO ONE (08:00)
[2017-10-02 08:03] VITALS: BP 127/66; PULSE 85; TEMP 37.3; O2SAT 96
[2017-10-02] MEDS ORDERED: LIDODERM (LIDOCAINE) PATCH 5% TD ONE (08:15)
[2017-10-02] MEDS: HEPARIN 25,000 UNIT/500ML D5W 500 ML IV PRN ×4 (08:16→23:49)
[2017-10-02] MEDS: OXYCODONE/ACETAMINOPHEN 5-325 TAB PO PRN ×3 (08:18→20:12)
[2017-10-02 08:25] LABS: FERRITIN 572.8 ng/ml (8.0-388.0)
[2017-10-02 09:28] LABS: URINE APPEARANCE CLEAR (CLEAR); URINE BILIRUBIN NEG (NEG); URINE COLOR YELLOW; URINE EPITHELIAL CELL AUTO 0-5 /lpf (0-5); URINE NITRITE NEG (NEG); URINE SPECIFIC GRAVITY 1.014 (1.000-1.030); UROBILINOGEN NEG (NEG); ZZUR CULT IF INDIC CLEAN CATCH NO
[2017-10-02 09:30] LABS: MANUAL MICROSCOPIC REQUIRED? NO; REVIEW REQ? NO
--- NOTE | 2017-10-02 09:32 | HISTORY & PHYSICAL EXAMINATION ---
DATE OF ADMISSION: 10/02/2017 PRIMARY CARE DOCTOR: Dr. Whitney (Although he has not met him.) CHIEF COMPLAINT: Left leg pain and swelling, back pain. HISTORY OF PRESENT ILLNESS: History obtained from the patient, , and records. 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 About 16 years ago patient had low back pain with radiation to the left lower extremity, stinging pain as per patient account. Abnormal back MRI done at [facility], which showed possible spine neurofibromas. Patient sent to [facility] in [place] for evaluation. No blood test to the patient's recollection. Specialist recommended lumbar spine MRIs every 5 years. Improved back pain, left lower extremity pain symptoms interim. About 2 weeks ago, patient had recurrence of achy left back pain going to the left leg worse with ambulation and movement. No fever, no chills. Does not recall any recent trauma. The patient has numbness on the leg. Denies bowel or bladder incontinence. Patient had not been able to move as much since the weekend. Seen at the ER a few days ago. MRI showed : 1. Neurofibromatosis perhaps slightly increased in prominence in the low lumbar region compared to the prior study. 2. No major compromise of the spinal canal. 3. Improved L4-L5 changes compared to the prior exam. The right posterior bulging disc is diminished in prominence. 4. Considerable degenerative disc change stable from the prior study. 5.Slightly progressive left paraspinous soft tissue prominence in a greatest dimension of 2.0 cm. Patient discharged on steroid and narcotic prescription. No improvement. Patient would fall asleep after narcotic prescription but intolerable pain would still be there when he woke up. Constipation noted. Orthopedics spine outpatient evaluation. No clarification if symptoms related to abnormal back MRI as per patient. Provider worried about slightly progressive left paraspinous soft tissue prominence on MRI as per patient account. Told to follow up with PCP for possible CT abdomen and pelvis. Worsening back, left leg pain and LLE swelling worsening. Denies chest pain or shortness of breath. No fever, no chills, no black, no bloody stools. Denies dysuria symptoms. Patient returned to the emergency room for intractable symptoms. MEDICAL HISTORY: As above. SURGICAL HISTORY: None. HOME MEDICATIONS: Include albuterol, Zofran, methylprednisolone. ALLERGIES: No known drug allergies. FAMILY HISTORY: FAMILY HISTORY: Colon cancer and blood clots. 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 REVIEW OF SYSTEMS: As per HPI, all 10 systems reviewed, all other ROS is negative. PHYSICAL EXAMINATION: Vital signs: Blood pressure was noted to be 132/82, pulse 90, RR 18 T 37 O2sats 98RA. GENERAL: anxious, uncomfortable, no respiratory distress. SKIN: Pallor and warm. HEENT: Ault palpebral conjunctivae. No ptosis. Dry mucosa. NECK: No JVD. Supple. No tenderness. CHEST: Clear to auscultation. No tenderness. HEART: Regular rate and rhythm, no murmur. ABDOMEN: Soft, nontender. RECTAL : Intact sphincter, brown stool, heme negative BACK : Some tenderness in the left lower back. limited SLR L EXTREMITIES: Tender swollen LLE. NEUROLOGIC: Coherent, no gross focality. Gait and stance not assessed. LABORATORY STUDIES: Hemoglobin 12.5, hematocrit 36.4, white blood cell 13, platelets noted to be 129. Sodium noted to be132, potassium 3.7, chloride 99, CO2 25, BUN 14, creatinine 1, glucose 140. CTA initial read no PE. L Lower extremity venous ultrasound extensive DVT. CT abdomen and pelvis initial read showed chronic appearing thrombus within the IVC, iliac veins, and femoral veins bilaterally with note of complete occlusion. Suggestion of thrombophlebitis, mild left hydro ureteronephrosis, recently passed calculus. ASSESSMENT: 1. 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 anemia, thrombocytopenia ? clot consumption 3. Opiate-induced constipation PLAN: [facility] Hematology opinion are RE extensive bilateral LE DVT in the setting of thrombocytopenia (IV heparin as per Hematology (Dr. Calix) recommendations to be initiated after hypercoagulable lab blood draw. Oral anticoagulant selection pending preliminary results of hypercoagulable workup. Vascular surgery as per Hematology recommendations RE extensive clot.) anemia workup. Analgesia, Lidoderm patch trial for back pain Orthopedics spine consult L back pain, follow-up eval bowel regimen Deep venous thrombosis prophylaxis. Heparin Full code Case d/w Dr. Araya (vascular surgeon correspondence representative). No benefit in thrombolytic therapy for extensive LE clot given chronic appearing thrombus on initial CT read. MTDD
--- NOTE | 2017-10-02 10:02 | DIAGNOSTIC IMAGING REPORT ---
ANGIO ABD/PELVIS WITH CONTRAST CLINICAL HISTORY: 47 years-old Male presenting with EXTENSIVE DVT, BACK PAIN, pain in the left leg radiating into the back. TECHNIQUE: Multidetector CT angiography of the abdomen and pelvis was performed after the administration of intravenous contrast. 3-D volumetric and/or maximum intensity projection (MIP) images were subsequently reconstructed for review. IV contrast: 120 mL of Optiray 320. A dose lowering technique was used consistent with the principles of ALARA (as low as reasonably achievable). Stenosis measurements were based on NASCET-like criteria. COMPARISON: Ultrasound from earlier the same day. CT DOSE (mGy.cm): The estimated cumulative dose is 1618.79 mGy.cm. FINDINGS: Barrel Washer topogram: Unremarkable. Lung bases: Minimal dependent changes likely atelectasis. Normal heart size. No pericardial or pleural effusion. Liver: Normal morphology. No liver lesion allowing for the arterial phase of contrast. Conventional hepatic arterial anatomy. Biliary: No intrahepatic or extrahepatic biliary ductal dilatation. Normal gallbladder. Pancreas: Normal. Spleen: Normal. Adrenal glands: Normal. Kidneys and ureters: No nephrolithiasis. No hydronephrosis. Normal parenchymal enhancement though the left kidney appears mildly enlarged relative to the right. The kidneys have not yet excreted contrast. Mild right pelvocaliectasis. Multiple parapelvic cysts suspected in the left kidney. Mild left pelviectasis. The ureters are mildly dilated. No obstructing calculus. The right renal veins are patent. The proximal left renal veins are patent though abrupt cut off of the left renal vein noted proximal to the left lateral aspect of the aorta with multiple collateral veins providing drainage via lumbar vessels as well as the azygos/hemiazygos systems. Renal arteries patent. Bladder: Bladder is elongated and incompletely distended with mild circumferential bladder wall thickening and mild perivesicular fat stranding most pronounced in the space of Retzius. Pelvic organs: Prostate and seminal vesicles normal. Bowel: Mild stool burden in normal caliber colon. The appendix is normal. No bowel obstruction. Peritoneal cavity: No free fluid or intraperitoneal gas. However, extensive retroperitoneal fluid is noted in the extraperitoneal portion of the pelvis and extending superiorly in the retroperitoneum below the level of the kidneys. Lymph nodes: No enlarged lymph nodes in the abdomen or pelvis. Vasculature: The aorta is patent and normal in caliber. The IVC is occluded below the level of the right renal vein. Multiple collateral veins evident at the level of the renal arteries with drainage pathways into the azygos/hemiazygos systems. Some of these collateral veins as well as the lower portion of the IVC are occluded with thrombus. Thrombus expands the bilateral common, internal, and external iliac veins tremendous with surrounding edema noted. These changes extend to the proximal lower extremities. Pre and postcontrast imaging does not image straight convincing evidence of enhancement of the thrombus. Abdominal wall: Normal. Musculoskeletal: Normal. IMPRESSION: 1. Massive amount of occlusive thrombus in the IVC, collateral veins, bilateral common, external, and internal iliac veins extending into the lower extremities. The expansion of the venous diameter could raise concern for tumor thrombus, though no enhancement is appreciated comparing pre and postcontrast imaging to substantiate this. Findings most consistent with extensive bland thrombus. Such extensive deep venous thrombosis could suggest an underlying coagulation disorder or autoimmune disease such as antiphospholipid syndrome. 2. Retroperitoneal fluid likely secondary to venous obstruction. 3. Mild bladder wall thickening with an elongated bladder configuration possibly suggesting underlying neurogenic bladder or cystitis. Correlate with urinalysis. 4. Possible mild bilateral hydronephrosis, which could be a functional obstruction from retroperitoneal fluid/venous obstruction. The report will be called/faxed according to standard departmental protocol. Electronically signed by: Jeff Jon M.D. 10/02/2017 10:01 AM Dictated Date/Time: 10/02/2017 7:13 AM
[2017-10-02 15:02] LABS: PARTIAL THROMBOPLASTIN RATIO 1.3
[2017-10-02 15:30] VITALS: BP 110/63; PULSE 82; TEMP 37; O2SAT 99
[2017-10-02] MEDS ORDERED: HEPARIN IV BOLUS 7,000 UNIT in SYRINGE 0 ML IV ONE (15:30)
--- NOTE | 2017-10-02 21:09 | Medical Consult ---
Consultation Date of Consultation: Oct 02, 2017. 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 He states that 16 year s ago he had developed low back pain with radiation down his LLE He consulted with ortho and states he went to [facility] but he never followed thru with genetic testing and states that he was recommended to have MRI every 5 years He states that prior to 1.5 week ago he was very active He denies any trauma to legs or fall or injury. He states that last Friday he started having throbbing pain and aching in the lower back and it radiated down his left buttock and medial thigh, worse with ambulation or movement He felt his legs getting heavy and tired and noticed swelling in his legs Left> right. He denies any shortness of breath or dizziness or palpitations or hemoptysis or chest pain He went to ER and had MRI l spine and was discharged with steroid and narcotic pain medication He states that he developed constipation - no bowel movement since Friday Also had frontal headache He states that on Friday he did not get up much out of bed but prior to that he was moving around as much as he could. He said the pain and swelling preceded that. FH of blood clots - his paternal aunt, paternal uncle and paternal cousin He states that they were found to have MTHFR gene mutation. The patient's father was tested and was positive for MTHFR C677T mutation but had normal homocysteine and his father has not had history of clots. CT angio abd showed: 1. Massive amount of occlusive thrombus in the IVC, collateral veins, bilateral common, external, and internal iliac veins extending into the lower extremities. The expansion of the venous diameter could raise concern for tumor thrombus, though no enhancement is appreciated comparing pre and postcontrast imaging to substantiate this. Findings most consistent with extensive bland thrombus. Such extensive deep venous thrombosis could suggest an underlying coagulation disorder or autoimmune disease such as antiphospholipid syndrome. 2. Retroperitoneal fluid likely secondary to venous obstruction. 3. Mild bladder wall thickening with an elongated bladder configuration possibly suggesting underlying neurogenic bladder or cystitis. Correlate with urinalysis. 4. Possible mild bilateral hydronephrosis, which could be a functional obstruction from retroperitoneal fluid/venous obstruction. venous doppler: FINDINGS: There is extensive occlusive deep venous thrombosis seen throughout the left lower extremity. This extends from the common femoral vein to the calf. Superficial thrombus is seen within the greater saphenous and profunda femoris veins. IMPRESSION: Extensive left lower extremity deep venous thrombosis as above. Past Medical/Surgical History Medical Problems: (1) Abdominal pain Status: Acute (2) Asthma Status: Chronic (3) Back pain Status: Acute (4) Deep vein thrombosis (DVT) of left lower extremity Status: Acute (5) Environmental and seasonal allergies Status: Chronic (6) Lumbar back pain with radiculopathy affecting left lower extremity Status: Acute (7) Neurofibromatosis, Unspecified Status: Chronic Family History Patient reports no known family medical history. FH: mother had cancer - per patient colon, lung and brain father: MTHFR C677T mutation paternal uncle: blood clot paternal aunt: blood clot paternal cousin: blood clot Social History Smoking Status: Never Smoker Drug Use: none Marital Status: Housing Status: lives with family Occupation Status: employed Allergies Coded Allergies: No Known Allergies (Unverified , 09/29/17) Current Inpatient Medications Current Inpatient Medications Medications (Trade) Dose Ordered Sig/Yvonne Route Start Time Stop Time Status Last Admin Dose Admin Ioversol (Optiray 320) 100 ml UD PRN IV 10/02/17 04:45 10/06/17 04:44 Hydromorphone HCl (Dilaudid Inj) 0.5 mg Q3H PRN IV 10/02/17 06:45 10/16/17 06:44 10/02/17 18:07 0.5 MG Potassium Chloride/Sodium Chloride 1,000 ml @ 75 mls/hr [id number] ONCE IV 10/02/17 07:45 10/02/17 21:04 10/02/17 08:06 75 MLS/HR Acetaminophen (Tylenol Tab) 650 mg Q4H PRN PO 10/02/17 06:45 11/01/17 06:44 Oxycodone/ Acetaminophen (Percocet 5-325mg Tab) pain not relieved by tylenol Q4H PRN PO 10/02/17 06:45 10/16/17 06:44 10/02/17 20:12 2 TAB Prochlorperazine Edisylate 5 mg/ Syringe 5 ml @ 5 mls/min Q6H PRN IV 10/02/17 06:45 11/01/17 06:44 Lorazepam (Ativan Inj) 0.5 mg Q4H PRN IV 10/02/17 06:45 11/01/17 06:44 Senna/Docusate Sodium (Senokot S Tab) 1 tab DAILY PO 10/03/17 09:00 11/02/17 08:59 Polyethylene (Miralax Powder Packet) 17 gm DAILY PRN PO 10/02/17 06:45 11/01/17 06:44 Lorazepam 0.5 mg/ Syringe 1 ml @ 1 mls/min Q4H PRN IV 10/02/17 07:30 11/01/17 07:29 Lidocaine (Lidoderm Patch 5%) 1 patch QAM TD 10/03/17 09:00 11/02/17 08:59 Miscellaneous (Remove Lidoderm Patch) 1 ea DAILY@21 N/A 10/02/17 21:00 11/01/17 20:59 Heparin Sodium/ Dextrose 500 ml @ 38 mls/hr [id number] PRN IV 10/02/17 08:00 11/01/17 07:59 10/02/17 15:57 38 MLS/HR Review of Systems Constitutional: No fever, No chills, No sweats, No weight loss, No fatigue ENT: No unusual epistaxis, No nasal symptoms, No sore throat, No trouble swallowing Respiratory: + cough (once few days ago, clear phlegm, none today), No sputum, No wheezing, No shortness of breath, No dyspnea on exertion, No dyspnea at rest , No hemoptysis Cardiovascular: + edema, No chest pain, No orthopnea, No PND Abdomen: + constipation, No pain, No nausea, No vomiting, No diarrhea, No GI bleeding Musculoskeletal: + swelling, + problem reported (pain in the lower back and left lower extremity), No joint pain Genitourinary - Male: No hematuria, No dysuria, No urinary retention, No urinary incontinence Neurologic: + problem reported (headache), No numbness/tingling, No vertigo Endocrine: No fatigue Hematologic / Lymphatic: + problem reported (DVT), No swollen lymph nodes, No night sweats Integumentary: No rash, No itch, No bleeding Physical Exam Date Time Temp Pulse Resp B/P (MAP) Pulse Ox O2 Delivery O2 Flow Rate FiO2 10/02/17 16:57 Room Air 10/02/17 15:30 37.0 82 18 110/63 (79) 99 Room Air 10/02/17 08:03 37.3 85 18 127/66 (86) 96 Room Air 10/02/17 08:00 Room Air 10/02/17 06:56 96 Nasal Cannula 2.0 10/02/17 06:30 85 20 124/97 96 Nasal Cannula 2.0 10/02/17 05:30 80 16 139/71 93 Room Air 10/02/17 05:15 82 18 136/67 98 Room Air 10/02/17 04:25 94 20 129/68 95 Room Air 10/02/17 02:50 95 Nasal Cannula 3.0 10/02/17 01:24 36.3 89 20 136/82 98 Room Air General Appearance: WD/WN, no apparent distress Head: normocephalic, atraumatic Eyes: EOMI, sclerae normal ENT: pharynx normal Neck: supple, no adenopathy, no JVD Respiratory/Chest: chest non-tender, lungs clear, normal breath sounds, no respiratory distress, no accessory muscle use Cardiovascular: regular rate, rhythm, no JVD, no murmur Abdomen/GI: normal bowel sounds, non tender, soft Extremities/Musculoskelatal: no calf tenderness, + pedal edema (Left from thigh to calf >>Right) Neurologic/Psych: alert, normal mood/affect (grossly nonfocal), oriented x 3 Skin: warm/dry, no rash Laboratory Results Last 24 Hours Test 10/02/17 02:00 10/02/17 04:22 10/02/17 07:38 10/02/17 14:31 White Blood Count 13.03 K/uL Red Blood Count 3.73 M/uL Hemoglobin 12.5 g/dL Hematocrit 36.4 % Mean Corpuscular Volume 97.6 fL Mean Corpuscular Hemoglobin 33.5 pg Mean Corpuscular Hemoglobin Concent 34.3 g/dl Platelet Count 129 K/uL Mean Platelet Volume 10.4 fL Neutrophils (%) (Auto) 79.5 % Lymphocytes (%) (Auto) 9.7 % Monocytes (%) (Auto) 9.8 % Eosinophils (%) (Auto) 0.1 % Basophils (%) (Auto) 0.2 % Neutrophils # (Auto) 10.36 K/uL Lymphocytes # (Auto) 1.27 K/uL Monocytes # (Auto) 1.28 K/uL Eosinophils # (Auto) 0.01 K/uL Basophils # (Auto) 0.02 K/uL RDW Standard Deviation 46.4 fL RDW Coefficient of Variation 13.0 % Immature Granulocyte % (Auto) 0.7 % Immature Granulocyte # (Auto) 0.09 K/uL Prothrombin Time 10.7 SECONDS Prothromb Time International Ratio 1.0 Activated Partial Thromboplast Time 26.7 SECONDS 34.8 SECONDS Partial Thromboplastin Ratio 1.0 1.3 Sodium Level 132 mmol/L Potassium Level 3.7 mmol/L Chloride Level 99 mmol/L Carbon Dioxide Level 25 mmol/L Anion Gap 8.0 mmol/L Blood Urea Nitrogen 14 mg/dl Creatinine 1.06 mg/dl Est Creatinine Clear Calc Drug Dose 107.8 ml/min Estimated GFR () 97.8 Estimated GFR (Non- 84.3 BUN/Creatinine Ratio 12.9 Random Glucose 135 mg/dl Calcium Level 9.0 mg/dl Magnesium Level 1.9 mg/dl Total Bilirubin 1.2 mg/dl Aspartate Amino Transf (AST/SGOT) 25 U/L Alanine Aminotransferase (ALT/SGPT) 19 U/L Alkaline Phosphatase 49 U/L Troponin I < 0.015 ng/ml Total Protein 7.2 gm/dl Albumin 3.4 gm/dl Globulin 3.8 gm/dl Albumin/Globulin Ratio 0.9 Urine Color YELLOW Urine Appearance CLEAR Urine pH 7.0 Urine Specific [place] 1.014 Urine Protein NEG Urine Glucose (UA) NEG Urine Ketones TRACE Urine Occult Blood 1+ Urine Nitrite NEG Urine Bilirubin NEG Urine Urobilinogen NEG Urine Leukocyte Esterase NEG Urine WBC (Auto) 1-5 /hpf Urine RBC (Auto) 5-10 /hpf Urine Hyaline Casts (Auto) 1-5 /lpf Urine Epithelial Cells (Auto) 0-5 /lpf Urine Bacteria (Auto) NEG Absolute Reticulocyte Count 0.06 10^6/uL Percent Reticulocyte Count 1.7 % Iron Level 17 mcg/dl Total Iron Binding Capacity 261 mcg/dl Transferrin 187 mg/dl Transferrin % Saturation 6 % Ferritin 572.8 ng/ml Vitamin B12 Level 362 pg/mL Folate 12.04 ng/mL Test 10/02/17 19:56 10/02/17 19:57 10/02/17 20:28 CT chest IMPRESSION: 1. Examination is severely degraded by poor contrast opacification of pulmonary arteries. 2. There is no evidence of central pulmonary embolus in the main or lobar branches. The segmental and subsegmental branches cannot be assessed. 3. The lungs are clear. L spine MRI IMPRESSION: 1. Findings again consistent with neurofibromatosis perhaps slightly increased in prominence in the low lumbar region compared to the prior study. 2. No major compromise of the spinal canal. 3. Improved L4-L5 changes compared to the prior exam. The right posterior bulging disc is diminished in prominence. 4. Considerable degenerative disc change stable from the prior study. 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 Also recommended consult vascular surgery for evaluation as well given the extent of the DVT I discussed options for anticoagulation with the patient - he is interested in coumadin Would continue heparin protocol When stable from vascular surgery standpoint and no procedures planned, he can be overlapped with lovenox 1mg/kg SC Q12hrs and coumadin - overlap for at least 5 days until INR therapeutic 2.5 +/- 0.5. He will need close follow up with the anticoagulation clinic - recommend goal INR of 2.5 to 3 He will need close monitoring with the anticoagulation clinic Headache - check MRI brain - rule out intracranial lesion recommend ortho spine/neurosurgery f/u evaluation of the MRI spine findings follow up in the office upon discharge thank you for allowing us to participate in the care of this patient
--- NOTE | 2017-10-02 22:05 | Progress Note ---
Medicine Progress Note Date & Time of Visit: Oct 02, 2017 at 18:31. Subjective 47 yo M with family h/o MTHFR genetic mutation and personal h/o neurofibromatosis presents with acute onset LE DVT. Tolerating PO, afebrile, Objective Last 8 Hrs Date Time Temp Pulse Resp B/P (MAP) Pulse Ox O2 Delivery O2 Flow Rate FiO2 10/02/17 16:57 Room Air 10/02/17 15:30 37.0 82 18 110/63 (79) 99 Room Air Physical Exam: GEN: WNWD, in no acute distress, alert and appropriate HEENT: NC/AT, PERRL, normal sclerae, MMM CARDIO: reg rate, S1/2 heard without m/g/r LUNGS: CTA bilaterally, no crackles, rales or wheezes, good diaphragmatic excursion ABD: soft, non-tender, non-distended, no rebound or guarding, +BS EXTREMITY: RP and DP palpable 2+ bilat, no LE swelling or edema, extremities are warm and well-perfused, TEDS in place. NEURO: CN 2-12 grossly intact, sensation intact throughout, SLR tests were negative. MUSC: 5/5 strength throughout, no focal deficits SKIN: warm and dry Laboratory Results: 10/02/17 02:00 Red Blood Count 3.73, Mean Corpuscular Volume 97.6, Mean Corpuscular Hemoglobin 33.5, Mean Corpuscular Hemoglobin Concent 34.3, Mean Platelet Volume 10.4, Neutrophils (%) (Auto) 79.5, Lymphocytes (%) (Auto) 9.7, Monocytes (%) (Auto) 9.8, Eosinophils (%) (Auto) 0.1, Basophils (%) (Auto) 0.2, Neutrophils # (Auto) 10.36, Lymphocytes # (Auto) 1.27, Monocytes # (Auto) 1.28, Eosinophils # (Auto) 0.01, Basophils # (Auto) 0.02 10/02/17 02:00 Test 10/02/17 02:00 10/02/17 04:22 10/02/17 07:38 10/02/17 19:56 White Blood Count 13.03 K/uL (4.8-10.8) Red Blood Count 3.73 M/uL (4.7-6.1) Hemoglobin 12.5 g/dL (14.0-18.0) Hematocrit 36.4 % (42-52) Mean Corpuscular Volume 97.6 fL (80-100) Mean Corpuscular Hemoglobin 33.5 pg (25-34) Mean Corpuscular Hemoglobin Concent 34.3 g/dl (32-36) Platelet Count 129 K/uL (130-400) Mean Platelet Volume 10.4 fL (7.4-10.4) Neutrophils (%) (Auto) 79.5 % Lymphocytes (%) (Auto) 9.7 % Monocytes (%) (Auto) 9.8 % Eosinophils (%) (Auto) 0.1 % Basophils (%) (Auto) 0.2 % Neutrophils # (Auto) 10.36 K/uL (1.4-6.5) Lymphocytes # (Auto) 1.27 K/uL (1.2-3.4) Monocytes # (Auto) 1.28 K/uL (0.11-0.59) Eosinophils # (Auto) 0.01 K/uL (0-0.5) Basophils # (Auto) 0.02 K/uL (0-0.2) RDW Standard Deviation 46.4 fL (36.4-46.3) RDW Coefficient of Variation 13.0 % (11.5-14.5) Immature Granulocyte % (Auto) 0.7 % Immature Granulocyte # (Auto) 0.09 K/uL (0.00-0.02) Prothrombin Time 10.7 SECONDS (9.0-12.0) Prothromb Time International Ratio 1.0 (0.9-1.1) Anion Gap 8.0 mmol/L (3-11) Est Creatinine Clear Calc Drug Dose 107.8 ml/min Estimated GFR () 97.8 Estimated GFR (Non- 84.3 BUN/Creatinine Ratio 12.9 (10-20) Calcium Level 9.0 mg/dl (8.5-10.1) Magnesium Level 1.9 mg/dl (1.8-2.4) Total Bilirubin 1.2 mg/dl (0.2-1) Aspartate Amino Transf (AST/SGOT) 25 U/L (15-37) Alanine Aminotransferase (ALT/SGPT) 19 U/L (12-78) Alkaline Phosphatase 49 U/L (45-117) Troponin I < 0.015 ng/ml (0-0.045) Total Protein 7.2 gm/dl (6.4-8.2) Albumin 3.4 gm/dl (3.4-5.0) Globulin 3.8 gm/dl (2.5-4.0) Albumin/Globulin Ratio 0.9 (0.9-2) Urine Color YELLOW Urine Appearance CLEAR (CLEAR) Urine pH 7.0 (4.5-7.5) Urine Specific [place] 1.014 (1.000-1.030) Urine Protein NEG (NEG) Urine Glucose (UA) NEG (NEG) Urine Ketones TRACE (NEG) Urine Occult Blood 1+ (NEG) Urine Nitrite NEG (NEG) Urine Bilirubin NEG (NEG) Urine Urobilinogen NEG (NEG) Urine Leukocyte Esterase NEG (NEG) Urine WBC (Auto) 1-5 /hpf (0-5) Urine RBC (Auto) 5-10 /hpf (0-4) Urine Hyaline Casts (Auto) 1-5 /lpf (0-5) Urine Epithelial Cells (Auto) 0-5 /lpf (0-5) Urine Bacteria (Auto) NEG (NEG) Absolute Reticulocyte Count 0.06 10^6/uL (0.02-0.10) Percent Reticulocyte Count 1.7 % (0.5-2.0) Iron Level 17 mcg/dl (35-175) Total Iron Binding Capacity 261 mcg/dl (250-450) Transferrin 187 mg/dl (200-360) Transferrin % Saturation 6 % (20-50) Ferritin 572.8 ng/ml (8.0-388.0) Vitamin B12 Level 362 pg/mL (211-911) Folate 12.04 ng/mL (>5.38) Test 10/02/17 19:57 10/02/17 20:28 10/02/17 22:00 Last 24 Hours Test 10/02/17 02:00 10/02/17 04:22 10/02/17 07:38 10/02/17 14:31 White Blood Count 13.03 K/uL Red Blood Count 3.73 M/uL Hemoglobin 12.5 g/dL Hematocrit 36.4 % Mean Corpuscular Volume 97.6 fL Mean Corpuscular Hemoglobin 33.5 pg Mean Corpuscular Hemoglobin Concent 34.3 g/dl Platelet Count 129 K/uL Mean Platelet Volume 10.4 fL Neutrophils (%) (Auto) 79.5 % Lymphocytes (%) (Auto) 9.7 % Monocytes (%) (Auto) 9.8 % Eosinophils (%) (Auto) 0.1 % Basophils (%) (Auto) 0.2 % Neutrophils # (Auto) 10.36 K/uL Lymphocytes # (Auto) 1.27 K/uL Monocytes # (Auto) 1.28 K/uL Eosinophils # (Auto) 0.01 K/uL Basophils # (Auto) 0.02 K/uL RDW Standard Deviation 46.4 fL RDW Coefficient of Variation 13.0 % Immature Granulocyte % (Auto) 0.7 % Immature Granulocyte # (Auto) 0.09 K/uL Prothrombin Time 10.7 SECONDS Prothromb Time International Ratio 1.0 Activated Partial Thromboplast Time 26.7 SECONDS 34.8 SECONDS Partial Thromboplastin Ratio 1.0 1.3 Sodium Level 132 mmol/L Potassium Level 3.7 mmol/L Chloride Level 99 mmol/L Carbon Dioxide Level 25 mmol/L Anion Gap 8.0 mmol/L Blood Urea Nitrogen 14 mg/dl Creatinine 1.06 mg/dl Est Creatinine Clear Calc Drug Dose 107.8 ml/min Estimated GFR () 97.8 Estimated GFR (Non- 84.3 BUN/Creatinine Ratio 12.9 Random Glucose 135 mg/dl Calcium Level 9.0 mg/dl Magnesium Level 1.9 mg/dl Total Bilirubin 1.2 mg/dl Aspartate Amino Transf (AST/SGOT) 25 U/L Alanine Aminotransferase (ALT/SGPT) 19 U/L Alkaline Phosphatase 49 U/L Troponin I < 0.015 ng/ml Total Protein 7.2 gm/dl Albumin 3.4 gm/dl Globulin 3.8 gm/dl Albumin/Globulin Ratio 0.9 Urine Color YELLOW Urine Appearance CLEAR Urine pH 7.0 Urine Specific [place] 1.014 Urine Protein NEG Urine Glucose (UA) NEG Urine Ketones TRACE Urine Occult Blood 1+ Urine Nitrite NEG Urine Bilirubin NEG Urine Urobilinogen NEG Urine Leukocyte Esterase NEG Urine WBC (Auto) 1-5 /hpf Urine RBC (Auto) 5-10 /hpf Urine Hyaline Casts (Auto) 1-5 /lpf Urine Epithelial Cells (Auto) 0-5 /lpf Urine Bacteria (Auto) NEG Absolute Reticulocyte Count 0.06 10^6/uL Percent Reticulocyte Count 1.7 % Iron Level 17 mcg/dl Total Iron Binding Capacity 261 mcg/dl Transferrin 187 mg/dl Transferrin % Saturation 6 % Ferritin 572.8 ng/ml Vitamin B12 Level 362 pg/mL Folate 12.04 ng/mL Assessment & Plan 47 yo M with family h/o MTHFR genetic mutation and personal h/o neurofibromatosis presents with acute onset LE DVT. 1. Bilateral LE deep venous thrombosis-continues on heparin and coumadin being started per Hematology. Cont pain control. Hypercoagulable workup pending. 2. Thrmobcytopenia 2/2 clot consumption vs other. 3. NF-known spinal tumors, again seen on MRI earlier this week. 4. Back pain-improved since starting the heparin drip. Would stabilized clot prior to working up back pain for other issue. DVT proph-heparin drip Full Code Dispo-uncertain at this time. Paige Nath DO [facility] Hospitalist Current Inpatient Medications: Current Inpatient Medications Medications (Trade) Dose Ordered Sig/Yvonne Route Start Time Stop Time Status Last Admin Dose Admin Ioversol (Optiray 320) 100 ml UD PRN IV 10/02/17 04:45 10/06/17 04:44 Hydromorphone HCl (Dilaudid Inj) 0.5 mg Q3H PRN IV 10/02/17 06:45 10/16/17 06:44 10/02/17 18:07 0.5 MG Potassium Chloride/Sodium Chloride 1,000 ml @ 75 mls/hr [id number] ONCE IV 10/02/17 07:45 10/02/17 21:04 10/02/17 08:06 75 MLS/HR Acetaminophen (Tylenol Tab) 650 mg Q4H PRN PO 10/02/17 06:45 11/01/17 06:44 Oxycodone/ Acetaminophen (Percocet 5-325mg Tab) pain not relieved by tylenol Q4H PRN PO 10/02/17 06:45 10/16/17 06:44 10/02/17 15:11 2 TAB Prochlorperazine Edisylate 5 mg/ Syringe 5 ml @ 5 mls/min Q6H PRN IV 10/02/17 06:45 11/01/17 06:44 Lorazepam (Ativan Inj) 0.5 mg Q4H PRN IV 10/02/17 06:45 11/01/17 06:44 Senna/Docusate Sodium (Senokot S Tab) 1 tab DAILY PO 10/03/17 09:00 11/02/17 08:59 Polyethylene (Miralax Powder Packet) 17 gm DAILY PRN PO 10/02/17 06:45 11/01/17 06:44 Lorazepam 0.5 mg/ Syringe 1 ml @ 1 mls/min Q4H PRN IV 10/02/17 07:30 11/01/17 07:29 Lidocaine (Lidoderm Patch 5%) 1 patch QAM TD 10/03/17 09:00 11/02/17 08:59 Miscellaneous (Remove Lidoderm Patch) 1 ea DAILY@21 N/A 10/02/17 21:00 11/01/17 20:59 Heparin Sodium/ Dextrose 500 ml @ 38 mls/hr [id number] PRN IV 10/02/17 08:00 11/01/17 07:59 10/02/17 15:57 38 MLS/HR
[2017-10-02] MEDS ORDERED: GADAVIST IV PRN (22:30)
--- NOTE | 2017-10-02 22:31 | DIAGNOSTIC IMAGING REPORT ---
Brain MRI WITH AND WITHOUT CONTRAST HISTORY: headache, rule out intracranial lesion TECHNIQUE: Multiplanar multisequence MRI of the brain was performed both before and after the intravenous administration of contrast. COMPARISON STUDY: Brain MRI 01/14/2007. FINDINGS: There are no areas of restricted diffusion to suggest acute infarction. Incidental is made of a partially empty sella. Otherwise, the midline structures are intact. Mild mucosal thickening and small fluid levels within the bilateral maxillary sinuses. There is also mild mucosal thickening within the ethmoid air cells. The orbits are unremarkable. The mastoid air cells are clear. The ventricles and sulci are within normal limits for age. There is no mass, hematoma, midline shift. The major vascular flow-voids at the skull base are well maintained. Postcontrast sequences show no areas of abnormal enhancement. IMPRESSION: 1. No acute intracranial abnormality. 2. Acute maxillary sinusitis. Electronically signed by: Sal Fonseca M.D. 10/02/2017 10:29 PM Dictated Date/Time: 10/02/2017 10:21 PM
[2017-10-02 22:54] VITALS: BP 120/71; PULSE 87; TEMP 37.2; O2SAT 95
[2017-10-02 22:56] LABS: IPF 3.1 % (0.9-8.3)
[2017-10-02 23:16] LABS: PARTIAL THROMBOPLASTIN RATIO 1.8
[2017-10-03] MEDS: OXYCODONE/ACETAMINOPHEN 5-325 TAB PO PRN ×3 (00:19→07:22)
[2017-10-03] MEDS ORDERED: DOCUSATE SODIUM/SENNA 50/8.6MG TAB PO ONE (00:29)
[2017-10-03] MEDS ORDERED: POLYETHYLENE (MIRALAX) 17 GM PACK PO ONE (00:29)
[2017-10-03] MEDS ORDERED: LACTULOSE SYRUP 30 GM/45 ML UDP PO STA ×2 (00:45→05:17)
[2017-10-03] MEDS: HYDROmorphone INJ 0.5 MG/0.5 ML SYR IV PRN (03:54)
[2017-10-03] MEDS: METHYLNALTREXONE BROMIDE INJ 12 MG/0.6 ML SYR SQ ONE ×2 (05:30→06:28)
[2017-10-03] MEDS ORDERED: HYDROmorphone INJ 0.5 MG/0.5 ML SYR IV PRN (06:30)
[2017-10-03 06:42] LABS: BASO % 0.2 %; BASO ABS # 0.02 K/uL (0-0.2); COMPLETE YES; EOS % 0.7 %; HEMATOCRIT 33.9 % (42-52); IG% 0.7 %; LYMPH % 15.9 %; LYMPH ABS # 1.95 K/uL (1.2-3.4); MEAN CELL VOLUME 97.7 fL (80-100); MEAN CORPUSCULAR HEMOGLOBIN 33.1 pg (25-34); MEAN CORPUSCULAR HGB CONC 33.9 g/dl (32-36); MEAN PLATELET VOLUME 9.5 fL (7.4-10.4); MONO % 10.4 %; NEUT % 72.1 %; PLATELET COUNT 164 K/uL (130-400); RED BLOOD COUNT 3.47 M/uL (4.7-6.1); WHITE BLOOD COUNT 12.25 K/uL (4.8-10.8)
[2017-10-03 07:00] LABS: PARTIAL THROMBOPLASTIN RATIO 1.8
[2017-10-03 07:50] VITALS: BP 128/70; PULSE 95; TEMP 37.5; O2SAT 97
[2017-10-03] MEDS: DOCUSATE SODIUM/SENNA 50/8.6MG TAB PO SCH ×2 (08:35→20:11)
[2017-10-03] MEDS: LIDODERM (LIDOCAINE) PATCH 5% TD SCH (08:35)
[2017-10-03] MEDS ORDERED: DOCUSATE SODIUM/SENNA 50/8.6MG TAB PO SCH (09:00)
--- NOTE | 2017-10-03 09:08 | Surgery Consultation ---
Consultation Date of Service Oct 03, 2017. Chief Complaint IVC/LLE DVT History of Present Illness The patient is a 47 year old male with hx of neurofibromatosis, admitted with low back and LLE pain/edema, seen today in consultation for IVC and LLE DVT noted on CT/US. Pt states he has never had a DVT that he knows of in the past. States he had trouble walking d/t pain in BLE, worse in LLE, for a few days prior to arrival. Noted edema in LLE. Denies WILL, fever, chills, chest pain, SOB, abd pain, N/V, rest pain, claudication, other complaints. CT scan/US demonstrates IVC occlusion with collateral formation, as well as complete occlusion of L iliac veins, femoral, and pop. Vitals Vital Signs Past 12 Hours Date Time Temp Pulse Resp B/P (MAP) Pulse Ox O2 Delivery O2 Flow Rate FiO2 10/03/17 07:50 37.5 95 20 128/70 (89) 97 Room Air 10/03/17 00:00 Room Air 10/02/17 22:54 37.2 87 20 120/71 (87) 95 Room Air Allergies Coded Allergies: No Known Allergies (Unverified , 09/29/17) Home Medications Scheduled Methylprednisolone (Medrol Dosepak), 0 PO DAILY Scheduled PRN Albuterol Hfa (Ventolin Hfa), 2-4 PUFFS INH Q6H PRN for SOB/Wheezing Fluticasone Propionate (Nasal) (Flonase Allergy Relief), 1 SPRAY RAJAN UD PRN for ALLERGIES Ondasetron Odt (Zofran Odt), 4 MG SL Q6H PRN for Nausea or Vomiting Oxycodone Immediate Rel Tab (Roxicodone Ir), 1-2 TAB PO Q4H PRN for Severe Pain Problem List Medical Problems: (1) Asthma (2) Environmental and seasonal allergies (3) Neurofibromatosis, Unspecified Surgical / Medical History Hx Cardiac Surgery: No Hx Abdominal Surgery: No Hx Cancer Surgery: No Hx Thoracic Surgery: No Hx Orthopedic: No Hx Urinary Tract Surgery: No HX Other Surgery: Yes (colonoscopy) Family History + for DVT in uncle, cousin + for MTHFR gene mutation Social History Smoking Status: Never Smoker Hx Tobacco Use In Past Year?: No Hx Alcohol Use - Type & Amnt: Yes (1 a day) Hx Substance Use -Type & Amnt: No Review of Systems Constitutional: No chills, No fever, No malaise Skin: No change in color Eyes: No visual changes ENMT: No sore throat Respiratory: No cough, No VERNON, No hemoptysis, No short of breath Cardiovascular: + edema, No chest pain, No palpitations, No syncope, No intermittent claudication Gastrointestinal: No abdominal pain, No nausea, No vomiting Musculoskeletal: + back pain Neurologic: No dizziness, No headache, No numbness, No tingling Physical Exam Constitutional: General Apperance: heathly-appearing, well-nourished, well-developed Level of Distress: NAD Psychiatric: Mental Status: active & alert, normal mood, normal affect Orientation: oriented except where noted, to time, to place, to person Memory: recent memory normal, remote memory normal Head: normocephalic, atraumatic Eyes: EOM: EOMI ENMT: normal ENT inspection, hearing grossly normal Neck: supple, trachea midline Lungs: Respiratory effort: no dyspnea Auscultation: no rales/crackles, no rhonchi Cardiovascular: Apical Impulse: not displaced Heart Auscultation: RRR, no rubs, no gallops Peripheral Pulses: Pulses: full and equal, in all extremities except if noted Bruits: none appreciated Carotid Pulse: normal on the left, normal on the right Brachial Pulses: normal on the left, normal on the right Radial Pulse: normal on the left, normal on the right Femoral Pulse: normal on the left, normal on the right Posterior Tibialis Pulse: normal on the left, normal on the right Dorsalis Pedis Pulse: normal on the left, normal on the right Abdomen: Bowel Sounds: normal Inspection & Palpation: soft, no tenderness, guarding & rebound, distended ( pelvic) Musculoskeletal: normal strength (5/5 throughout), normal tone Extremities: Upper Right: no cyanosis, no edema, no varicosities Upper Left: no cyanosis, no edema, no varicosities Lower Right: no cyanosis, edema Lower Left: no cyanosis, edema Neurologic: Cranial Nerves: grossly intact Sensation: grossly intact Assessment and Plan ASSESSMENT and PLAN: IVC and iliac V occlusion DVT LLE Pt discussed with Dr Araya, does not recommend vascular surgical intervention at this time, 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 Recommend thigh high compression, anticoagulation per medicine and hematology, and hypercoagulable workup per hematology. Please call if needed.
[2017-10-03] MEDS ORDERED: HYDROmorphone HCL 0.5MG/ML 50 ML CASSETTE IV PRN (09:30)
[2017-10-03] MEDS ORDERED: NALOXONE HCL 0.4 MG/1 ML VIAL/CARP IV PRN (09:30)
[2017-10-03] MEDS: SODIUM CHLORIDE 0.9% 1000ML 1,000 ML IV SCH (10:53)
[2017-10-03 11:00] VITALS: BP 118/76; PULSE 79; TEMP 37; O2SAT 96
[2017-10-03] MEDS: HEPARIN 25,000 UNIT/500ML D5W 500 ML IV PRN (11:54)
[2017-10-03 12:48] VITALS: BP 124/77; PULSE 90; TEMP 37.4; O2SAT 97
[2017-10-03 13:14] VITALS: BP 138/83; PULSE 89; O2SAT 98
[2017-10-03 14:57] VITALS: BP 124/73; PULSE 101; TEMP 37; O2SAT 94
[2017-10-03] MEDS: ONDANSETRON 4 MG TAB PO PRN (16:00)
[2017-10-03] MEDS: WARFARIN SOD 5 MG TAB PO SCH (16:01)
--- NOTE | 2017-10-03 18:08 | Progress Note ---
Medicine Progress Note Date & Time of Visit: Oct 03, 2017 at 09:35. Subjective 47 yo M with family h/o MTHFR genetic mutation and personal h/o neurofibromatosis presents with acute onset LE DVT. Pain much worse overnight after trying to ambulate to the bathroom and have a BM. Mostly located in his upper thighs and back area. Denies numbness or tingling in legs, no sciatica at this time Denies fevers or chills, but reports sweating overnight. Box fan going in room. Tolerating PO. Objective Last 8 Hrs Date Time Temp Pulse Resp B/P (MAP) Pulse Ox O2 Delivery O2 Flow Rate FiO2 10/03/17 08:00 Room Air 10/03/17 07:50 37.5 95 20 128/70 (89) 97 Room Air Physical Exam: GEN: WNWD, in no acute distress, alert and appropriate HEENT: NC/AT, PERRL, normal sclerae, MMM CARDIO: reg rate, S1/2 heard without m/g/r LUNGS: CTA bilaterally, no crackles, rales or wheezes, good diaphragmatic excursion ABD: soft, non-tender, non-distended, no rebound or guarding, +BS EXTREMITY: RP and DP palpable 2+ bilat, no LE swelling or edema, extremities are warm and well-perfused, TEDS in place. L leg is warmer than R leg, no edema , no pain with calf squeeze. NEURO: CN 2-12 grossly intact, sensation intact throughout MUSC: 5/5 strength throughout, no focal deficits SKIN: warm and dry Laboratory Results: 10/03/17 06:16 Red Blood Count 3.47, Mean Corpuscular Volume 97.7, Mean Corpuscular Hemoglobin 33.1, Mean Corpuscular Hemoglobin Concent 33.9, Mean Platelet Volume 9.5, Neutrophils (%) (Auto) 72.1, Lymphocytes (%) (Auto) 15.9, Monocytes (%) (Auto) 10.4, Eosinophils (%) (Auto) 0.7, Basophils (%) (Auto) 0.2, Neutrophils # (Auto ) 8.84, Lymphocytes # (Auto) 1.95, Monocytes # (Auto) 1.27, Eosinophils # (Auto ) 0.08, Basophils # (Auto) 0.02 10/02/17 02:00 Test 10/02/17 02:00 10/02/17 04:22 10/02/17 07:38 10/02/17 22:33 Prothrombin Time 10.7 SECONDS (9.0-12.0) Prothromb Time International Ratio 1.0 (0.9-1.1) Anion Gap 8.0 mmol/L (3-11) Est Creatinine Clear Calc Drug Dose 107.8 ml/min Estimated GFR () 97.8 Estimated GFR (Non- 84.3 BUN/Creatinine Ratio 12.9 (10-20) Calcium Level 9.0 mg/dl (8.5-10.1) Magnesium Level 1.9 mg/dl (1.8-2.4) Total Bilirubin 1.2 mg/dl (0.2-1) Aspartate Amino Transf (AST/SGOT) 25 U/L (15-37) Alanine Aminotransferase (ALT/SGPT) 19 U/L (12-78) Alkaline Phosphatase 49 U/L (45-117) Troponin I < 0.015 ng/ml (0-0.045) Total Protein 7.2 gm/dl (6.4-8.2) Albumin 3.4 gm/dl (3.4-5.0) Globulin 3.8 gm/dl (2.5-4.0) Albumin/Globulin Ratio 0.9 (0.9-2) Urine Color YELLOW Urine Appearance CLEAR (CLEAR) Urine pH 7.0 (4.5-7.5) Urine Specific [place] 1.014 (1.000-1.030) Urine Protein NEG (NEG) Urine Glucose (UA) NEG (NEG) Urine Ketones TRACE (NEG) Urine Occult Blood 1+ (NEG) Urine Nitrite NEG (NEG) Urine Bilirubin NEG (NEG) Urine Urobilinogen NEG (NEG) Urine Leukocyte Esterase NEG (NEG) Urine WBC (Auto) 1-5 /hpf (0-5) Urine RBC (Auto) 5-10 /hpf (0-4) Urine Hyaline Casts (Auto) 1-5 /lpf (0-5) Urine Epithelial Cells (Auto) 0-5 /lpf (0-5) Urine Bacteria (Auto) NEG (NEG) Absolute Reticulocyte Count 0.06 10^6/uL (0.02-0.10) Percent Reticulocyte Count 1.7 % (0.5-2.0) Iron Level 17 mcg/dl (35-175) Total Iron Binding Capacity 261 mcg/dl (250-450) Transferrin 187 mg/dl (200-360) Transferrin % Saturation 6 % (20-50) Ferritin 572.8 ng/ml (8.0-388.0) Vitamin B12 Level 362 pg/mL (211-911) Folate 12.04 ng/mL (>5.38) Homocysteine 12.3 UMOL/L (<11.4) Immature Platelet Fraction 3.1 % (0.9-8.3) Peripheral Blood Smear Path Consult Rheumatoid Factor < 10.0 U/mL (0-15) Test 10/03/17 06:16 White Blood Count 12.25 K/uL (4.8-10.8) Red Blood Count 3.47 M/uL (4.7-6.1) Hemoglobin 11.5 g/dL (14.0-18.0) Hematocrit 33.9 % (42-52) Mean Corpuscular Volume 97.7 fL (80-100) Mean Corpuscular Hemoglobin 33.1 pg (25-34) Mean Corpuscular Hemoglobin Concent 33.9 g/dl (32-36) Platelet Count 164 K/uL (130-400) Mean Platelet Volume 9.5 fL (7.4-10.4) Neutrophils (%) (Auto) 72.1 % Lymphocytes (%) (Auto) 15.9 % Monocytes (%) (Auto) 10.4 % Eosinophils (%) (Auto) 0.7 % Basophils (%) (Auto) 0.2 % Neutrophils # (Auto) 8.84 K/uL (1.4-6.5) Lymphocytes # (Auto) 1.95 K/uL (1.2-3.4) Monocytes # (Auto) 1.27 K/uL (0.11-0.59) Eosinophils # (Auto) 0.08 K/uL (0-0.5) Basophils # (Auto) 0.02 K/uL (0-0.2) RDW Standard Deviation 46.3 fL (36.4-46.3) RDW Coefficient of Variation 13.0 % (11.5-14.5) Immature Granulocyte % (Auto) 0.7 % Immature Granulocyte # (Auto) 0.09 K/uL (0.00-0.02) Activated Partial Thromboplast Time 47.4 SECONDS (21.0-31.0) Partial Thromboplastin Ratio 1.8 Last 24 Hours Test 10/02/17 14:31 10/02/17 22:33 10/03/17 06:16 Activated Partial Thromboplast Time 34.8 SECONDS 47.1 SECONDS 47.4 SECONDS Partial Thromboplastin Ratio 1.3 1.8 1.8 Immature Platelet Fraction 3.1 % Peripheral Blood Smear Path Consult Rheumatoid Factor < 10.0 U/mL White Blood Count 12.25 K/uL Red Blood Count 3.47 M/uL Hemoglobin 11.5 g/dL Hematocrit 33.9 % Mean Corpuscular Volume 97.7 fL Mean Corpuscular Hemoglobin 33.1 pg Mean Corpuscular Hemoglobin Concent 33.9 g/dl Platelet Count 164 K/uL Mean Platelet Volume 9.5 fL Neutrophils (%) (Auto) 72.1 % Lymphocytes (%) (Auto) 15.9 % Monocytes (%) (Auto) 10.4 % Eosinophils (%) (Auto) 0.7 % Basophils (%) (Auto) 0.2 % Neutrophils # (Auto) 8.84 K/uL Lymphocytes # (Auto) 1.95 K/uL Monocytes # (Auto) 1.27 K/uL Eosinophils # (Auto) 0.08 K/uL Basophils # (Auto) 0.02 K/uL RDW Standard Deviation 46.3 fL RDW Coefficient of Variation 13.0 % Immature Granulocyte % (Auto) 0.7 % Immature Granulocyte # (Auto) 0.09 K/uL Assessment & Plan 47 yo M with family h/o MTHFR genetic mutation and personal h/o neurofibromatosis presents with acute onset LE DVT. 1. Bilateral LE deep venous thrombosis-continues on heparin and coumadin per Hematology. Cont pain control-he is requiring CHEESE WRAPPER pump at this time. This will be short term and the patient understands this. Will get PT/OT involved tomorrow-moving causes much worse pain for the patient. Hypercoagulable workup pending. 2. Thrombocytopenia 2/2 clot consumption vs other-resolved. 3. NF-known spinal tumors, again seen on MRI earlier this week. Ortho spine consulted to see him in the hospital with continued inability to walk. Of note , they did see him as outpatient earlier this week and reviewed MRI findings with the patient at that time. Would like their opinion if things are worse and if any of this may be related to back issues. 4. Back pain-improved since starting the heparin drip. Would stabilized clot prior to working up back pain for other issue. Apprec Ortho spine input in light of tumors. DVT proph-heparin drip/coumadin Full Code Dispo-uncertain at this time. DO [facility] Consultants: [facility] Current Inpatient Medications: Current Inpatient Medications Medications (Trade) Dose Ordered Sig/Yvonne Route Start Time Stop Time Status Last Admin Dose Admin Ioversol (Optiray 320) 100 ml UD PRN IV 10/02/17 04:45 10/06/17 04:44 Acetaminophen (Tylenol Tab) 650 mg Q4H PRN PO 10/02/17 06:45 11/01/17 06:44 Oxycodone/ Acetaminophen (Percocet 5-325mg Tab) pain not relieved by tylenol Q4H PRN PO 10/02/17 06:45 10/16/17 06:44 10/03/17 07:22 2 TAB Prochlorperazine Edisylate 5 mg/ Syringe 5 ml @ 5 mls/min Q6H PRN IV 10/02/17 06:45 11/01/17 06:44 Lorazepam (Ativan Inj) 0.5 mg Q4H PRN IV 10/02/17 06:45 11/01/17 06:44 Polyethylene (Miralax Powder Packet) 17 gm DAILY PRN PO 10/02/17 06:45 11/01/17 06:44 Lorazepam 0.5 mg/ Syringe 1 ml @ 1 mls/min Q4H PRN IV 10/02/17 07:30 11/01/17 07:29 10/03/17 08:34 1 MLS/MIN Lidocaine (Lidoderm Patch 5%) 1 patch QAM TD 10/03/17 09:00 11/02/17 08:59 10/03/17 08:35 1 PATCH Miscellaneous (Remove Lidoderm Patch) 1 ea DAILY@21 N/A 10/02/17 21:00 11/01/17 20:59 10/02/17 21:05 1 EA Heparin Sodium/ Dextrose 500 ml @ 38 mls/hr [id number] PRN IV 10/02/17 08:00 11/01/17 07:59 10/02/17 23:49 38 MLS/HR Gadobutrol (Gadavist) 10 mmol UD PRN IV 10/02/17 22:30 10/06/17 22:29 Senna/Docusate Sodium (Senokot S Tab) 1 tab BID PO 10/03/17 09:00 11/02/17 08:59 10/03/17 08:35 1 TAB Hydromorphone HCl (Dilaudid Inj) 0.5 mg Q4H PRN IV 10/03/17 06:30 10/16/17 06:44
[2017-10-03 19:22] VITALS: BP 124/68; PULSE 97; TEMP 37.7; O2SAT 95
[2017-10-03] MEDS: ACETAMINOPHEN 325 MG TAB PO PRN (20:11)
[2017-10-03] MEDS ORDERED: DOCUSATE SODIUM 100 MG CAP PO SCH (21:00)
[2017-10-04] MEDS: HEPARIN 25,000 UNIT/500ML D5W 500 ML IV PRN ×3 (01:36→14:42)
[2017-10-04 03:23] VITALS: BP 121/72; PULSE 93; TEMP 36.7; O2SAT 93
[2017-10-04 07:08] LABS: PARTIAL THROMBOPLASTIN RATIO 1.7; PROTHROMBIN TIME (PATIENT) 10.6 SECONDS (9.0-12.0)
[2017-10-04 07:09] LABS: BASO % 0.2 %; BASO ABS # 0.02 K/uL (0-0.2); COMPLETE YES; HEMATOCRIT 33.1 % (42-52); IG% 1.1 %; LYMPH % 14.9 %; LYMPH ABS # 1.75 K/uL (1.2-3.4); MEAN CELL VOLUME 97.4 fL (80-100); MEAN CORPUSCULAR HEMOGLOBIN 32.6 pg (25-34); MEAN CORPUSCULAR HGB CONC 33.5 g/dl (32-36); MEAN PLATELET VOLUME 9.4 fL (7.4-10.4); MONO % 10.8 %; PLATELET COUNT 213 K/uL (130-400); WHITE BLOOD COUNT 11.72 K/uL (4.8-10.8)
[2017-10-04 07:17] VITALS: BP 132/61; PULSE 94; TEMP 37.6; O2SAT 97
[2017-10-04 07:30] LABS: CALCIUM 8.5 mg/dl (8.5-10.1); CREATININE 0.9 mg/dl (0.60-1.40)
[2017-10-04] MEDS ORDERED: HEPARIN IV BOLUS 3,000 UNIT in SYRINGE 0 ML IV ONE (07:30)
[2017-10-04] MEDS: DOCUSATE SODIUM/SENNA 50/8.6MG TAB PO SCH ×2 (07:36→20:14)
[2017-10-04] MEDS: POLYETHYLENE (MIRALAX) 17 GM PACK PO SCH (07:36)
[2017-10-04] MEDS: LIDODERM (LIDOCAINE) PATCH 5% TD SCH (07:36)
[2017-10-04] MEDS: ACETAMINOPHEN 325 MG TAB PO PRN (08:27)
[2017-10-04 09:14] VITALS: BP 138/75; PULSE 81; TEMP 37.3; O2SAT 97
[2017-10-04] MEDS: SODIUM CHLORIDE 0.9% 1000ML 1,000 ML IV SCH (09:29)
--- NOTE | 2017-10-04 10:17 | Progress Note ---
Progress Note Date of Service Oct 04, 2017. Progress Note Patient seen with present. 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 He now has acute thrombus in the rest of infrarenal cava, iliacs and common femorals bilaterally and the left leg to the calf. Right leg was not imaged. He does have a family history of hypercoagulable state. He stands at work on a computer for the most part of the day. There is nothing surgically or endovascularly that can be done for this amount of clot. I would treat him with stockings and life long anticoagulation as a hypercoagulable state. Thank you very much for letting me participate in the care of this patient.
--- NOTE | 2017-10-04 11:05 | Orthopedic Consultation ---
Orthopedic Consultation Date of Consultation: Oct 04, 2017. Attending Physician: Paige Nath DO Reason for Consultation: Leg pain History of Present Illness This is a very pleasant 47-year-old male that has had the onset of significant leg pain over the past several days. Left leg is worse than the right. He is been diagnosed with extensive blood clots extending the entire lower extremity on the left. This morning he states this pain is controlled. HEENT struggles with ambulation secondary discomfort when placing weight on his leg. 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 He does have a standing desk. Past Medical/Surgical History Medical Problems: (1) Abdominal pain Status: Acute (2) Asthma Status: Chronic (3) Back pain Status: Acute (4) Deep vein thrombosis (DVT) of left lower extremity Status: Acute (5) Environmental and seasonal allergies Status: Chronic (6) Lumbar back pain with radiculopathy affecting left lower extremity Status: Acute (7) Neurofibromatosis, Unspecified Status: Chronic Family History Patient reports no known family medical history. Social History Smoking Status: Never Smoker Drug Use: none Marital Status: Housing Status: lives with family Occupation Status: employed Allergies Coded Allergies: No Known Allergies (Unverified , 09/29/17) Home Medications Scheduled Methylprednisolone (Medrol Dosepak), 0 PO DAILY Scheduled PRN Albuterol Hfa (Ventolin Hfa), 2-4 PUFFS INH Q6H PRN for SOB/Wheezing Fluticasone Propionate (Nasal) (Flonase Allergy Relief), 1 SPRAY RAJAN UD PRN for ALLERGIES Ondasetron Odt (Zofran Odt), 4 MG SL Q6H PRN for Nausea or Vomiting Oxycodone Immediate Rel Tab (Roxicodone Ir), 1-2 TAB PO Q4H PRN for Severe Pain Current Inpatient Medications Current Inpatient Medications Medications (Trade) Dose Ordered Sig/Yvonne Route Start Time Stop Time Status Last Admin Dose Admin Ioversol (Optiray 320) 100 ml UD PRN IV 10/02/17 04:45 10/06/17 04:44 Acetaminophen (Tylenol Tab) 650 mg Q4H PRN PO 10/02/17 06:45 11/01/17 06:44 10/04/17 08:27 650 MG Lidocaine (Lidoderm Patch 5%) 1 patch QAM TD 10/03/17 09:00 11/02/17 08:59 10/04/17 07:36 1 PATCH Miscellaneous (Remove Lidoderm Patch) 1 ea DAILY@21 N/A 10/02/17 21:00 11/01/17 20:59 10/03/17 20:11 1 EA Heparin Sodium/ Dextrose 500 ml @ 41 mls/hr [id number] PRN IV 10/02/17 08:00 11/01/17 07:59 10/04/17 07:35 41 MLS/HR Gadobutrol (Gadavist) 10 mmol UD PRN IV 10/02/17 22:30 10/06/17 22:29 Senna/Docusate Sodium (Senokot S Tab) 1 tab BID PO 10/03/17 09:00 11/02/17 08:59 10/04/17 07:36 1 TAB Ondansetron HCl (Zofran Tab) 4 mg Q8H PRN PO 10/03/17 09:30 11/02/17 09:29 10/03/17 16:00 4 MG Naloxone HCl (Narcan Inj) 0.1 mg Q5M PRN IV 10/03/17 09:30 11/02/17 09:29 Polyethylene (Miralax Powder Packet) 17 gm DAILY PO 10/04/17 09:00 11/03/17 08:59 Warfarin Sodium (Coumadin Tab) 5 mg DAILY@16 PO 10/03/17 16:00 11/02/17 15:59 10/03/17 16:01 5 MG Oxycodone/ Acetaminophen (Percocet 5-325mg Tab) 1 tab Q4H PRN PO 10/04/17 10:45 10/16/17 06:44 Physical Exam Date Time Temp Pulse Resp B/P (MAP) Pulse Ox O2 Delivery O2 Flow Rate FiO2 10/04/17 09:14 37.3 81 20 138/75 (96) 97 Room Air 10/04/17 08:00 Room Air 10/04/17 07:17 37.6 94 18 132/61 (84) 97 Room Air 10/04/17 03:23 36.7 93 18 121/72 (88) 93 Room Air 10/04/17 00:00 Room Air 10/03/17 19:22 37.7 97 17 124/68 (86) 95 Room Air 10/03/17 16:00 Room Air 10/03/17 14:57 37.0 101 124/73 (90) 94 10/03/17 13:14 89 18 138/83 (101) 98 Room Air 10/03/17 12:48 37.4 90 18 124/77 (93) 97 Room Air On exam he is alert and oriented very cooperative. He exhibits +5 over 5 plantar flexion dorsiflexion extensor pollicis longus as well as quadriceps. The left lower extremity is clearly swollen compared to the right. He does have tenderness to palpation. Sensory is intact. Laboratory Results Last 24 Hours Test 10/04/17 06:37 White Blood Count 11.72 K/uL Red Blood Count 3.40 M/uL Hemoglobin 11.1 g/dL Hematocrit 33.1 % Mean Corpuscular Volume 97.4 fL Mean Corpuscular Hemoglobin 32.6 pg Mean Corpuscular Hemoglobin Concent 33.5 g/dl Platelet Count 213 K/uL Mean Platelet Volume 9.4 fL Neutrophils (%) (Auto) 72.0 % Lymphocytes (%) (Auto) 14.9 % Monocytes (%) (Auto) 10.8 % Eosinophils (%) (Auto) 1.0 % Basophils (%) (Auto) 0.2 % Neutrophils # (Auto) 8.43 K/uL Lymphocytes # (Auto) 1.75 K/uL Monocytes # (Auto) 1.27 K/uL Eosinophils # (Auto) 0.12 K/uL Basophils # (Auto) 0.02 K/uL RDW Standard Deviation 46.0 fL RDW Coefficient of Variation 13.0 % Immature Granulocyte % (Auto) 1.1 % Immature Granulocyte # (Auto) 0.13 K/uL Prothrombin Time 10.6 SECONDS Prothromb Time International Ratio 1.0 Activated Partial Thromboplast Time 43.3 SECONDS Partial Thromboplastin Ratio 1.7 Sodium Level 135 mmol/L Potassium Level 4.0 mmol/L Chloride Level 100 mmol/L Carbon Dioxide Level 30 mmol/L Anion Gap 5.0 mmol/L Blood Urea Nitrogen 9 mg/dl Creatinine 0.90 mg/dl Est Creatinine Clear Calc Drug Dose 126.9 ml/min Estimated GFR () 119.1 Estimated GFR (Non- 102.8 BUN/Creatinine Ratio 10.0 Random Glucose 106 mg/dl Calcium Level 8.5 mg/dl Assessment & Plan Assessment acute leg pain. Plan at this time of emphasized the patient and his that his MRI has no evidence of any significant canal stenosis. There is no evidence of neural compression. He does have known neural fibromatosis. Does not appear to be continuing to his symptom complex at this time. I do not see any indication for surgical intervention regarding lumbar spine. Strongly suspect his leg symptoms are in fact due to the extensive blood clots.
--- NOTE | 2017-10-04 11:12 | Progress Note ---
Medicine Progress Note Date & Time of Visit: Oct 04, 2017 at 10:35. Subjective 47 yo M with family h/o MTHFR genetic mutation and personal h/o neurofibromatosis presents with acute onset LE DVT. Elevated homocysteine on labwork with normal B12 and folate levels. Hypercoag w/u still pending. Pt states pain is improved. OK to DC [employer] at this time and transition back to oral narcotics vs tylenol as needed. No NSAIDs. Tolerating PO. Mild fever overnight with some sweating from the dilaudid. Has not ambulated this morning. LLE swelling appears slightly increased on exam. Planning for PT/OT today. at bedside and plan discussed with all questions answered. Objective Last 8 Hrs Date Time Temp Pulse Resp B/P (MAP) Pulse Ox O2 Delivery O2 Flow Rate FiO2 10/04/17 09:14 37.3 81 20 138/75 (96) 97 Room Air 10/04/17 08:00 Room Air 10/04/17 07:17 37.6 94 18 132/61 (84) 97 Room Air 10/04/17 03:23 36.7 93 18 121/72 (88) 93 Room Air Physical Exam: GEN: WNWD, in no acute distress, alert and appropriate HEENT: NC/AT,normal sclerae, MMM CARDIO: reg rate, S1/2 heard without m/g/r LUNGS: CTA bilaterally, no crackles, rales or wheezes, good diaphragmatic excursion ABD: soft, non-tender, non-distended, no rebound or guarding, +BS EXTREMITY: RP and DP palpable 2+ bilat, increased LE swelling in Left leg, extremities are warm and well-perfused, TEDS in place. No pain with calf squeeze. NEURO: CN 2-12 grossly intact, sensation intact throughout MUSC: 5/5 strength throughout, no focal deficits SKIN: warm and dry Laboratory Results: 10/04/17 06:37 Red Blood Count 3.40, Mean Corpuscular Volume 97.4, Mean Corpuscular Hemoglobin 32.6, Mean Corpuscular Hemoglobin Concent 33.5, Mean Platelet Volume 9.4, Neutrophils (%) (Auto) 72.0, Lymphocytes (%) (Auto) 14.9, Monocytes (%) (Auto) 10.8, Eosinophils (%) (Auto) 1.0, Basophils (%) (Auto) 0.2, Neutrophils # (Auto ) 8.43, Lymphocytes # (Auto) 1.75, Monocytes # (Auto) 1.27, Eosinophils # (Auto ) 0.12, Basophils # (Auto) 0.02 10/04/17 06:37 Test 10/02/17 02:00 10/02/17 04:22 10/02/17 07:38 10/02/17 22:33 Magnesium Level 1.9 mg/dl (1.8-2.4) Total Bilirubin 1.2 mg/dl (0.2-1) Aspartate Amino Transf (AST/SGOT) 25 U/L (15-37) Alanine Aminotransferase (ALT/SGPT) 19 U/L (12-78) Alkaline Phosphatase 49 U/L (45-117) Troponin I < 0.015 ng/ml (0-0.045) Total Protein 7.2 gm/dl (6.4-8.2) Albumin 3.4 gm/dl (3.4-5.0) Globulin 3.8 gm/dl (2.5-4.0) Albumin/Globulin Ratio 0.9 (0.9-2) Urine Color YELLOW Urine Appearance CLEAR (CLEAR) Urine pH 7.0 (4.5-7.5) Urine Specific [place] 1.014 (1.000-1.030) Urine Protein NEG (NEG) Urine Glucose (UA) NEG (NEG) Urine Ketones TRACE (NEG) Urine Occult Blood 1+ (NEG) Urine Nitrite NEG (NEG) Urine Bilirubin NEG (NEG) Urine Urobilinogen NEG (NEG) Urine Leukocyte Esterase NEG (NEG) Urine WBC (Auto) 1-5 /hpf (0-5) Urine RBC (Auto) 5-10 /hpf (0-4) Urine Hyaline Casts (Auto) 1-5 /lpf (0-5) Urine Epithelial Cells (Auto) 0-5 /lpf (0-5) Urine Bacteria (Auto) NEG (NEG) Absolute Reticulocyte Count 0.06 10^6/uL (0.02-0.10) Percent Reticulocyte Count 1.7 % (0.5-2.0) Iron Level 17 mcg/dl (35-175) Total Iron Binding Capacity 261 mcg/dl (250-450) Transferrin 187 mg/dl (200-360) Transferrin % Saturation 6 % (20-50) Ferritin 572.8 ng/ml (8.0-388.0) Vitamin B12 Level 362 pg/mL (211-911) Folate 12.04 ng/mL (>5.38) Homocysteine 12.3 UMOL/L (<11.4) Immature Platelet Fraction 3.1 % (0.9-8.3) Peripheral Blood Smear Path Consult Rheumatoid Factor < 10.0 U/mL (0-15) Test 10/04/17 06:37 White Blood Count 11.72 K/uL (4.8-10.8) Red Blood Count 3.40 M/uL (4.7-6.1) Hemoglobin 11.1 g/dL (14.0-18.0) Hematocrit 33.1 % (42-52) Mean Corpuscular Volume 97.4 fL (80-100) Mean Corpuscular Hemoglobin 32.6 pg (25-34) Mean Corpuscular Hemoglobin Concent 33.5 g/dl (32-36) Platelet Count 213 K/uL (130-400) Mean Platelet Volume 9.4 fL (7.4-10.4) Neutrophils (%) (Auto) 72.0 % Lymphocytes (%) (Auto) 14.9 % Monocytes (%) (Auto) 10.8 % Eosinophils (%) (Auto) 1.0 % Basophils (%) (Auto) 0.2 % Neutrophils # (Auto) 8.43 K/uL (1.4-6.5) Lymphocytes # (Auto) 1.75 K/uL (1.2-3.4) Monocytes # (Auto) 1.27 K/uL (0.11-0.59) Eosinophils # (Auto) 0.12 K/uL (0-0.5) Basophils # (Auto) 0.02 K/uL (0-0.2) RDW Standard Deviation 46.0 fL (36.4-46.3) RDW Coefficient of Variation 13.0 % (11.5-14.5) Immature Granulocyte % (Auto) 1.1 % Immature Granulocyte # (Auto) 0.13 K/uL (0.00-0.02) Prothrombin Time 10.6 SECONDS (9.0-12.0) Prothromb Time International Ratio 1.0 (0.9-1.1) Activated Partial Thromboplast Time 43.3 SECONDS (21.0-31.0) Partial Thromboplastin Ratio 1.7 Anion Gap 5.0 mmol/L (3-11) Est Creatinine Clear Calc Drug Dose 126.9 ml/min Estimated GFR () 119.1 Estimated GFR (Non- 102.8 BUN/Creatinine Ratio 10.0 (10-20) Calcium Level 8.5 mg/dl (8.5-10.1) Last 24 Hours Test 10/04/17 06:37 White Blood Count 11.72 K/uL Red Blood Count 3.40 M/uL Hemoglobin 11.1 g/dL Hematocrit 33.1 % Mean Corpuscular Volume 97.4 fL Mean Corpuscular Hemoglobin 32.6 pg Mean Corpuscular Hemoglobin Concent 33.5 g/dl Platelet Count 213 K/uL Mean Platelet Volume 9.4 fL Neutrophils (%) (Auto) 72.0 % Lymphocytes (%) (Auto) 14.9 % Monocytes (%) (Auto) 10.8 % Eosinophils (%) (Auto) 1.0 % Basophils (%) (Auto) 0.2 % Neutrophils # (Auto) 8.43 K/uL Lymphocytes # (Auto) 1.75 K/uL Monocytes # (Auto) 1.27 K/uL Eosinophils # (Auto) 0.12 K/uL Basophils # (Auto) 0.02 K/uL RDW Standard Deviation 46.0 fL RDW Coefficient of Variation 13.0 % Immature Granulocyte % (Auto) 1.1 % Immature Granulocyte # (Auto) 0.13 K/uL Prothrombin Time 10.6 SECONDS Prothromb Time International Ratio 1.0 Activated Partial Thromboplast Time 43.3 SECONDS Partial Thromboplastin Ratio 1.7 Sodium Level 135 mmol/L Potassium Level 4.0 mmol/L Chloride Level 100 mmol/L Carbon Dioxide Level 30 mmol/L Anion Gap 5.0 mmol/L Blood Urea Nitrogen 9 mg/dl Creatinine 0.90 mg/dl Est Creatinine Clear Calc Drug Dose 126.9 ml/min Estimated GFR () 119.1 Estimated GFR (Non- 102.8 BUN/Creatinine Ratio 10.0 Random Glucose 106 mg/dl Calcium Level 8.5 mg/dl Assessment & Plan 47 yo M with family h/o MTHFR genetic mutation and personal h/o neurofibromatosis presents with acute onset LE DVT. Elevated homocysteine on labwork with normal B12 and folate levels. Hypercoag w/u still pending. Pt states pain is improved. OK to DC [employer] at this time and transition back to oral narcotics vs tylenol as needed. No NSAIDs. Tolerating PO. Mild fever overnight with some sweating from the dilaudid. Has not ambulated this morning. LLE swelling appears slightly increased on exam. Planning for PT/OT today. at bedside and plan discussed with all questions answered. 1. Bilateral LE deep venous thrombosis-continues on heparin and coumadin per Hematology. Cont pain control-dc [employer] at this time. This will be short term and the patient understands this. PT/ OT today Hypercoagulable workup pending. Cont compression stockings. 2. NF-known spinal tumors, again seen on MRI earlier this week. Ortho spine consulted to see him in the hospital with continued inability to walk. Of note , they did see him as outpatient earlier this week and reviewed MRI findings with the patient at that time. Would like their opinion if things are worse and if any of this may be related to back issues. 3. Back pain-improved since starting the heparin drip. Would stabilized clot prior to working up back pain for other issue. Apprec Ortho spine input in light of tumors. DVT proph-heparin drip/coumadin Full Code Dispo-awaiting PT/OT eval but likely home early next week. Paige Nath DO [facility] [address] Hospitalist Consultants: [facility] Current Inpatient Medications: Current Inpatient Medications Medications (Trade) Dose Ordered Sig/Yvonne Route Start Time Stop Time Status Last Admin Dose Admin Ioversol (Optiray 320) 100 ml UD PRN IV 10/02/17 04:45 10/06/17 04:44 Acetaminophen (Tylenol Tab) 650 mg Q4H PRN PO 10/02/17 06:45 11/01/17 06:44 10/04/17 08:27 650 MG Oxycodone/ Acetaminophen (Percocet 5-325mg Tab) pain not relieved by tylenol Q4H PRN PO 10/02/17 06:45 10/16/17 06:44 10/03/17 07:22 2 TAB Lidocaine (Lidoderm Patch 5%) 1 patch QAM TD 10/03/17 09:00 11/02/17 08:59 10/04/17 07:36 1 PATCH Miscellaneous (Remove Lidoderm Patch) 1 ea DAILY@21 N/A 10/02/17 21:00 11/01/17 20:59 10/03/17 20:11 1 EA Heparin Sodium/ Dextrose 500 ml @ 41 mls/hr [id number] PRN IV 10/02/17 08:00 11/01/17 07:59 10/04/17 07:35 41 MLS/HR Gadobutrol (Gadavist) 10 mmol UD PRN IV 10/02/17 22:30 10/06/17 22:29 Senna/Docusate Sodium (Senokot S Tab) 1 tab BID PO 10/03/17 09:00 11/02/17 08:59 10/04/17 07:36 1 TAB Ondansetron HCl (Zofran Tab) 4 mg Q8H PRN PO 10/03/17 09:30 11/02/17 09:29 10/03/17 16:00 4 MG Naloxone HCl (Narcan Inj) 0.1 mg Q5M PRN IV 10/03/17 09:30 11/02/17 09:29 Polyethylene (Miralax Powder Packet) 17 gm DAILY PO 10/04/17 09:00 11/03/17 08:59 Warfarin Sodium (Coumadin Tab) 5 mg DAILY@16 PO 10/03/17 16:00 11/02/17 15:59 10/03/17 16:01 5 MG
[2017-10-04] MEDS: OXYCODONE/ACETAMINOPHEN 5-325 TAB PO PRN ×4 (11:54→21:50)
[2017-10-04 12:04] VITALS: BP 129/77; PULSE 87; TEMP 37.1; O2SAT 94
[2017-10-04 14:04] LABS: PARTIAL THROMBOPLASTIN RATIO 1.7
[2017-10-04 14:45] VITALS: BP 116/68; PULSE 77; TEMP 37.1; O2SAT 96
[2017-10-04] MEDS ORDERED: HEPARIN IV BOLUS 3,000 UNIT in SYRINGE 0 ML IV SCH (14:50)
[2017-10-04] MEDS: WARFARIN SOD 5 MG TAB PO SCH (16:05)
[2017-10-04 21:21] LABS: PARTIAL THROMBOPLASTIN RATIO 1.9
[2017-10-04 23:13] VITALS: BP 119/62; PULSE 68; TEMP 37.4; O2SAT 97
[2017-10-05 01:00] VITALS: TEMP 36.8
[2017-10-05] MEDS: OXYCODONE/ACETAMINOPHEN 5-325 TAB PO PRN ×3 (01:54→10:20)
[2017-10-05] MEDS: HEPARIN 25,000 UNIT/500ML D5W 500 ML IV PRN ×3 (02:43→13:26)
[2017-10-05 06:47] VITALS: BP 111/63; PULSE 68; TEMP 36.7; O2SAT 96
[2017-10-05 06:57] LABS: HEMATOCRIT 32.8 % (42-52); MEAN CELL VOLUME 97.9 fL (80-100); MEAN CORPUSCULAR HEMOGLOBIN 33.1 pg (25-34); MEAN CORPUSCULAR HGB CONC 33.8 g/dl (32-36); MEAN PLATELET VOLUME 9.2 fL (7.4-10.4); PLATELET COUNT 269 K/uL (130-400); RED BLOOD COUNT 3.35 M/uL (4.7-6.1); WHITE BLOOD COUNT 11.04 K/uL (4.8-10.8)
[2017-10-05 07:30] LABS: BASOPHIL % 0.9 % (0-2); COMPLETE YES; EOSINOPHIL % 3.5 %; LYMPH ABS # 1.64 K/uL (1.2-3.4); LYMPHOCYTE % 14.9 %; NEUTROPHILS % 71.1 %
[2017-10-05] MEDS: POLYETHYLENE (MIRALAX) 17 GM PACK PO SCH (07:50)
[2017-10-05] MEDS: DOCUSATE SODIUM/SENNA 50/8.6MG TAB PO SCH ×2 (07:50→21:41)
[2017-10-05] MEDS: LIDODERM (LIDOCAINE) PATCH 5% TD SCH (07:51)
[2017-10-05] MEDS ORDERED: ACETAMINOPHEN 500 MG TAB PO SCH (14:00)
[2017-10-05] MEDS: OXYCODONE HCL IR 5 MG TAB (IMMEDIATE RELEASE) PO PRN ×4 (14:21→23:34)
--- NOTE | 2017-10-05 14:43 | Progress Note ---
Medicine Progress Note Date & Time of Visit: Oct 05, 2017 at 14:38. Subjective 47 yo M with family h/o MTHFR genetic mutation and personal h/o neurofibromatosis presents with acute onset LE DVT. Elevated homocysteine on labwork with normal B12 and folate levels. Hypercoag w/u still pending. Pt states pain is improved. Still requiring a moderate amount of narcotics at this point for pain. Overnight had some sweats, but overall he feels improved. Leg swelling on left has gone down in size. He has increased ability to ambulate and to tolerate things like sitting on the toilet. Denies constipation. Objective Last 8 Hrs Date Time Temp Pulse Resp B/P (MAP) Pulse Ox O2 Delivery O2 Flow Rate FiO2 10/05/17 08:00 Room Air 10/05/17 06:47 36.7 68 18 111/63 (79) 96 Room Air Physical Exam: GEN: WNWD, in no acute distress, alert and appropriate HEENT: NC/AT,normal sclerae, MMM CARDIO: reg rate, S1/2 heard without m/g/r LUNGS: CTA bilaterally, no crackles, rales or wheezes, good diaphragmatic excursion ABD: soft, non-tender, non-distended, no rebound or guarding, +BS EXTREMITY: RP and DP palpable 2+ bilat, increased LE swelling in Left leg, extremities are warm and well-perfused, TEDS in place. No pain with calf squeeze. NEURO: CN 2-12 grossly intact, sensation intact throughout MUSC: 5/5 strength throughout, no focal deficits SKIN: warm and dry Laboratory Results: 10/05/17 06:32 Red Blood Count 3.35, Mean Corpuscular Volume 97.9, Mean Corpuscular Hemoglobin 33.1, Mean Corpuscular Hemoglobin Concent 33.8, Mean Platelet Volume 9.2 10/04/17 06:37 Test 10/02/17 02:00 10/02/17 04:22 10/02/17 07:38 10/02/17 22:33 Magnesium Level 1.9 mg/dl (1.8-2.4) Total Bilirubin 1.2 mg/dl (0.2-1) Aspartate Amino Transf (AST/SGOT) 25 U/L (15-37) Alanine Aminotransferase (ALT/SGPT) 19 U/L (12-78) Alkaline Phosphatase 49 U/L (45-117) Troponin I < 0.015 ng/ml (0-0.045) Total Protein 7.2 gm/dl (6.4-8.2) Albumin 3.4 gm/dl (3.4-5.0) Globulin 3.8 gm/dl (2.5-4.0) Albumin/Globulin Ratio 0.9 (0.9-2) Urine Color YELLOW Urine Appearance CLEAR (CLEAR) Urine pH 7.0 (4.5-7.5) Urine Specific [place] 1.014 (1.000-1.030) Urine Protein NEG (NEG) Urine Glucose (UA) NEG (NEG) Urine Ketones TRACE (NEG) Urine Occult Blood 1+ (NEG) Urine Nitrite NEG (NEG) Urine Bilirubin NEG (NEG) Urine Urobilinogen NEG (NEG) Urine Leukocyte Esterase NEG (NEG) Urine WBC (Auto) 1-5 /hpf (0-5) Urine RBC (Auto) 5-10 /hpf (0-4) Urine Hyaline Casts (Auto) 1-5 /lpf (0-5) Urine Epithelial Cells (Auto) 0-5 /lpf (0-5) Urine Bacteria (Auto) NEG (NEG) Absolute Reticulocyte Count 0.06 10^6/uL (0.02-0.10) Percent Reticulocyte Count 1.7 % (0.5-2.0) Iron Level 17 mcg/dl (35-175) Total Iron Binding Capacity 261 mcg/dl (250-450) Transferrin 187 mg/dl (200-360) Transferrin % Saturation 6 % (20-50) Ferritin 572.8 ng/ml (8.0-388.0) Vitamin B12 Level 362 pg/mL (211-911) Folate 12.04 ng/mL (>5.38) Homocysteine 12.3 UMOL/L (<11.4) Immature Platelet Fraction 3.1 % (0.9-8.3) Peripheral Blood Smear Path Consult Rheumatoid Factor < 10.0 U/mL (0-15) Test 10/04/17 06:37 10/05/17 06:32 Immature Granulocyte % (Auto) 1.1 % White Blood Count 11.72 K/uL (4.8-10.8) 11.04 K/uL (4.8-10.8) Red Blood Count 3.40 M/uL (4.7-6.1) 3.35 M/uL (4.7-6.1) Hemoglobin 11.1 g/dL (14.0-18.0) 11.1 g/dL (14.0-18.0) Hematocrit 33.1 % (42-52) 32.8 % (42-52) Mean Corpuscular Volume 97.4 fL (80-100) 97.9 fL (80-100) Mean Corpuscular Hemoglobin 32.6 pg (25-34) 33.1 pg (25-34) Mean Corpuscular Hemoglobin Concent 33.5 g/dl (32-36) 33.8 g/dl (32-36) Platelet Count 213 K/uL (130-400) 269 K/uL (130-400) Mean Platelet Volume 9.4 fL (7.4-10.4) 9.2 fL (7.4-10.4) Neutrophils (%) (Auto) 72.0 % Lymphocytes (%) (Auto) 14.9 % Monocytes (%) (Auto) 10.8 % Eosinophils (%) (Auto) 1.0 % Basophils (%) (Auto) 0.2 % Neutrophils # (Auto) 8.43 K/uL (1.4-6.5) Lymphocytes # (Auto) 1.75 K/uL (1.2-3.4) Monocytes # (Auto) 1.27 K/uL (0.11-0.59) Eosinophils # (Auto) 0.12 K/uL (0-0.5) Basophils # (Auto) 0.02 K/uL (0-0.2) Immature Granulocyte # (Auto) 0.13 K/uL (0.00-0.02) Anion Gap 5.0 mmol/L (3-11) Est Creatinine Clear Calc Drug Dose 126.9 ml/min Estimated GFR () 119.1 Estimated GFR (Non- 102.8 BUN/Creatinine Ratio 10.0 (10-20) Calcium Level 8.5 mg/dl (8.5-10.1) RDW Standard Deviation 46.8 fL (36.4-46.3) RDW Coefficient of Variation 13.1 % (11.5-14.5) Neutrophils % (Manual) 71.1 % Lymphocytes % (Manual) 14.9 % Monocytes % (Manual) 9.6 % Eosinophils % (Manual) 3.5 % Basophils % (Manual) 0.9 % (0-2) Neutrophils # (Manual) 7.85 K/uL (1.4-6.5) Total Absolute Neutrophils 7.85 K/uL (1.4-6.5) Lymphocytes # (Manual) 1.64 K/uL (1.2-3.4) Total Absolute Lymphocytes 1.64 K/uL (1.2-3.4) Monocytes # (Manual) 1.06 K/uL (0.11-0.59) Eosinophils # (Manual) 0.39 K/uL (0-0.5) Basophils # (Manual) 0.10 K/uL (0-0.2) Red Blood Cell Morphology Unremarkable Prothrombin Time 11.0 SECONDS (9.0-12.0) Prothromb Time International Ratio 1.0 (0.9-1.1) Activated Partial Thromboplast Time 51.8 SECONDS (21.0-31.0) Partial Thromboplastin Ratio 2.0 Last 24 Hours Test 10/04/17 20:50 10/05/17 06:32 Activated Partial Thromboplast Time 49.2 SECONDS 51.8 SECONDS Partial Thromboplastin Ratio 1.9 2.0 White Blood Count 11.04 K/uL Red Blood Count 3.35 M/uL Hemoglobin 11.1 g/dL Hematocrit 32.8 % Mean Corpuscular Volume 97.9 fL Mean Corpuscular Hemoglobin 33.1 pg Mean Corpuscular Hemoglobin Concent 33.8 g/dl Platelet Count 269 K/uL Mean Platelet Volume 9.2 fL RDW Standard Deviation 46.8 fL RDW Coefficient of Variation 13.1 % Neutrophils % (Manual) 71.1 % Lymphocytes % (Manual) 14.9 % Monocytes % (Manual) 9.6 % Eosinophils % (Manual) 3.5 % Basophils % (Manual) 0.9 % Neutrophils # (Manual) 7.85 K/uL Total Absolute Neutrophils 7.85 K/uL Lymphocytes # (Manual) 1.64 K/uL Total Absolute Lymphocytes 1.64 K/uL Monocytes # (Manual) 1.06 K/uL Eosinophils # (Manual) 0.39 K/uL Basophils # (Manual) 0.10 K/uL Red Blood Cell Morphology Unremarkable Prothrombin Time 11.0 SECONDS Prothromb Time International Ratio 1.0 Assessment & Plan 47 yo M with family h/o MTHFR genetic mutation and personal h/o neurofibromatosis presents with acute onset LE DVT. Elevated homocysteine on labwork with normal B12 and folate levels. Hypercoag w/u still pending. Pt states pain is improved. Still requiring a moderate amount of narcotics at this point for pain. Overnight had some sweats, but overall he feels improved. Leg swelling on left has gone down in size. He has increased ability to ambulate and to tolerate things like sitting on the toilet. Denies constipation. 1. Bilateral LE deep venous thrombosis-continues on heparin and coumadin per Hematology. Cont pain control efforts with scheduled Tylenol punctuated by Oxy PRN. Cont PT/ OT Cont compression stockings. INR still 1.0-will adjust based on tomorrow morning's value. 2. NF-known spinal tumors, again seen on MRI earlier this week. Ortho spine consulted to see him in the hospital with continued inability to walk. Of note , they did see him as outpatient earlier this week and reviewed MRI findings with the patient at that time. At this time no surgical intervention is recommended. 3. Back pain-improved. Would stabilized clot prior to working up back pain for other issue. Apprec Ortho spine input in light of tumors. DVT proph-heparin drip/coumadin Full Code Dispo-awaiting PT/OT eval but likely home early next week. [facility] Consultants: [facility] Current Inpatient Medications: Current Inpatient Medications Medications (Trade) Dose Ordered Sig/Yvonne Route Start Time Stop Time Status Last Admin Dose Admin Ioversol (Optiray 320) 100 ml UD PRN IV 10/02/17 04:45 10/06/17 04:44 Lidocaine (Lidoderm Patch 5%) 1 patch QAM TD 10/03/17 09:00 11/02/17 08:59 10/05/17 07:51 1 PATCH Miscellaneous (Remove Lidoderm Patch) 1 ea DAILY@21 N/A 10/02/17 21:00 11/01/17 20:59 10/03/17 20:11 1 EA Heparin Sodium/ Dextrose 500 ml @ 44 mls/hr [id number] PRN IV 10/02/17 08:00 11/01/17 07:59 10/05/17 13:26 44 MLS/HR Gadobutrol (Gadavist) 10 mmol UD PRN IV 10/02/17 22:30 10/06/17 22:29 Senna/Docusate Sodium (Senokot S Tab) 1 tab BID PO 10/03/17 09:00 11/02/17 08:59 10/05/17 07:50 1 TAB Ondansetron HCl (Zofran Tab) 4 mg Q8H PRN PO 10/03/17 09:30 11/02/17 09:29 10/03/17 16:00 4 MG Naloxone HCl (Narcan Inj) 0.1 mg Q5M PRN IV 10/03/17 09:30 11/02/17 09:29 Warfarin Sodium (Coumadin Tab) 5 mg DAILY@16 PO 10/03/17 16:00 11/02/17 15:59 10/04/17 16:05 5 MG Polyethylene (Miralax Powder Packet) 17 gm DAILY PRN PO 10/05/17 11:30 11/04/17 11:29 Acetaminophen (Tylenol Tab) 1,000 mg Q8 PO 10/05/17 14:00 11/04/17 13:59 Oxycodone HCl (Roxicodone Immediate Rel Tab) @ Q4H PRN PO 10/05/17 11:15 10/19/17 11:14 10/05/17 14:21 5 MG
[2017-10-05] MEDS: WARFARIN SOD 5 MG TAB PO SCH (15:11)
[2017-10-05 15:48] VITALS: BP 114/69; PULSE 74; TEMP 37.2; O2SAT 97
[2017-10-05] MEDS: ACETAMINOPHEN 500 MG TAB PO SCH (21:40)
[2017-10-05 23:29] VITALS: BP 119/70; PULSE 83; TEMP 38.1; O2SAT 96
[2017-10-06] MEDS ORDERED: SODIUM CHLORIDE 0.9% 1000ML 1,000 ML IV ONE (00:15)
[2017-10-06 00:38] LABS: BASO % 0.3 %; BASO ABS # 0.03 K/uL (0-0.2); COMPLETE YES; IG% 1.5 %; LYMPH % 18.5 %; LYMPH ABS # 2.12 K/uL (1.2-3.4); MEAN CELL VOLUME 96.5 fL (80-100); MEAN CORPUSCULAR HEMOGLOBIN 32.7 pg (25-34); MEAN CORPUSCULAR HGB CONC 33.9 g/dl (32-36); MONO % 11.6 %; NEUT % 66.1 %; PLATELET COUNT 344 K/uL (130-400); RED BLOOD COUNT 3.42 M/uL (4.7-6.1); WHITE BLOOD COUNT 11.45 K/uL (4.8-10.8)
[2017-10-06] MEDS ORDERED: IBUPROFEN 200 MG TAB PO ONE (00:45)
[2017-10-06 00:47] LABS: INR 1.2 (0.9-1.1); PROTHROMBIN TIME (PATIENT) 12.7 SECONDS (9.0-12.0)
[2017-10-06 00:58] LABS: BUN/CREATININE RATIO 11.2 (10-20); CALCIUM 8.4 mg/dl (8.5-10.1); CREATININE 0.94 mg/dl (0.60-1.40); MAGNESIUM 2.3 mg/dl (1.8-2.4)
[2017-10-06 01:01] LABS: ALB/GLOB RATIO 0.6 (0.9-2)
[2017-10-06] MEDS: HEPARIN 25,000 UNIT/500ML D5W 500 ML IV PRN ×4 (01:02→23:47)
[2017-10-06 01:42] VITALS: TEMP 36.7
[2017-10-06] MEDS: ACETAMINOPHEN 500 MG TAB PO SCH ×3 (06:15→22:04)
[2017-10-06] MEDS: OXYCODONE HCL IR 5 MG TAB (IMMEDIATE RELEASE) PO PRN ×5 (06:16→20:30)
[2017-10-06 06:54] VITALS: BP 134/79; PULSE 61; TEMP 36.8; O2SAT 97
[2017-10-06 07:00] LABS: PARTIAL THROMBOPLASTIN RATIO 2.2
[2017-10-06] MEDS: LIDODERM (LIDOCAINE) PATCH 5% TD SCH (07:51)
[2017-10-06] MEDS: DOCUSATE SODIUM/SENNA 50/8.6MG TAB PO SCH ×2 (07:51→20:29)
[2017-10-06] MEDS ORDERED: SODIUM CHLORIDE 0.9% 1000ML 1,000 ML IV SCH (11:30)
[2017-10-06 15:37] VITALS: BP 109/68; PULSE 67; TEMP 36.9; O2SAT 93
[2017-10-06] MEDS ORDERED: WARFARIN SOD 10 MG TAB PO SCH (16:00)
[2017-10-06 16:28] LABS: ANTITHROMBINIII ACTIVITY** 116 % activity (80-120); B2 GLYCOPROTEIN IGA <9 SAU (<=20); B2 GLYCOPROTEIN IGG <9 SGU (<=20); B2 GLYCOPROTEIN IGM <9 SMU (<=20); LUPUS ANTICOAGULANT** TC36573X Weak Positive (Negative); PROTEIN C ACTIVITY** TC 1777X 114 % (70-180); PROTEIN S ACT(FUNCT)**1779X 103 % (70-150)
--- NOTE | 2017-10-06 18:19 | Progress Note ---
Medicine Progress Note Date & Time of Visit: Oct 06, 2017 at 1100. Subjective 47 yo M with family h/o MTHFR genetic mutation and personal h/o neurofibromatosis presents with acute onset LE DVT. Elevated homocysteine on labwork with normal B12 and folate levels. Hypercoag w/u negative to date ( some tests still pending). Pt states pain is improved but he is still requiring narcotics. Continues to try to ambulate but feels unsafe to go home at this point. tolerating PO, +constipation Objective Last 8 Hrs Date Time Temp Pulse Resp B/P (MAP) Pulse Ox O2 Delivery O2 Flow Rate FiO2 10/06/17 16:00 Room Air 10/06/17 15:37 36.9 67 18 109/68 (82) 93 Room Air Physical Exam: GEN: WNWD, in no acute distress, alert and appropriate, appears fatigued and drained. HEENT: NC/AT,normal sclerae, MMM CARDIO: reg rate, S1/2 heard without m/g/r LUNGS: CTA bilaterally, no crackles, rales or wheezes, good diaphragmatic excursion ABD: soft, non-tender, non-distended, no rebound or guarding, +BS EXTREMITY: RP and DP palpable 2+ bilat, increased LE swelling in Left leg, extremities are warm and well-perfused, TEDS in place. No pain with calf squeeze. NEURO: CN 2-12 grossly intact, sensation intact throughout MUSC: 5/5 strength throughout, no focal deficits SKIN: warm and dry Laboratory Results: 10/06/17 00:30 Red Blood Count 3.42, Mean Corpuscular Volume 96.5, Mean Corpuscular Hemoglobin 32.7, Mean Corpuscular Hemoglobin Concent 33.9, Mean Platelet Volume 9.0, Neutrophils (%) (Auto) 66.1, Lymphocytes (%) (Auto) 18.5, Monocytes (%) (Auto) 11.6, Eosinophils (%) (Auto) 2.0, Basophils (%) (Auto) 0.3, Neutrophils # (Auto ) 7.57, Lymphocytes # (Auto) 2.12, Monocytes # (Auto) 1.33, Eosinophils # (Auto ) 0.23, Basophils # (Auto) 0.03 10/06/17 00:30 Test 10/02/17 02:00 10/02/17 04:22 10/02/17 07:38 10/02/17 22:33 Troponin I < 0.015 ng/ml (0-0.045) Urine Color YELLOW Urine Appearance CLEAR (CLEAR) Urine pH 7.0 (4.5-7.5) Urine Specific [place] 1.014 (1.000-1.030) Urine Protein NEG (NEG) Urine Glucose (UA) NEG (NEG) Urine Ketones TRACE (NEG) Urine Occult Blood 1+ (NEG) Urine Nitrite NEG (NEG) Urine Bilirubin NEG (NEG) Urine Urobilinogen NEG (NEG) Urine Leukocyte Esterase NEG (NEG) Urine WBC (Auto) 1-5 /hpf (0-5) Urine RBC (Auto) 5-10 /hpf (0-4) Urine Hyaline Casts (Auto) 1-5 /lpf (0-5) Urine Epithelial Cells (Auto) 0-5 /lpf (0-5) Urine Bacteria (Auto) NEG (NEG) Absolute Reticulocyte Count 0.06 10^6/uL (0.02-0.10) Percent Reticulocyte Count 1.7 % (0.5-2.0) Hexagonal Phase Confirmation Weak Positive (Negative) Protein C Activity 114 % (70-180) Protein S Activity 103 % (70-150) Anti-Thrombin III Activity 116 % activity (80-120) Factor V Leiden Mutation see note Factor V Leiden Interpretation see note Factor V Leiden Reviewed By see note Prothrombin Gene Mutation see note Prothrombin Gene Mutation Comment see note Prothrombin Mutation Reviewed By see note Iron Level 17 mcg/dl (35-175) Total Iron Binding Capacity 261 mcg/dl (250-450) Transferrin 187 mg/dl (200-360) Transferrin % Saturation 6 % (20-50) Ferritin 572.8 ng/ml (8.0-388.0) Vitamin B12 Level 362 pg/mL (211-911) Folate 12.04 ng/mL (>5.38) Homocysteine 12.3 UMOL/L (<11.4) Fvee-oyus-0-Glycoprotein I IgG Ab <9 SGU (<=20) Oekr-ezvc-2-Glycoprotein I IgA Ab <9 ERICK (<=20) Cben-kpfb-9-Glycoprotein I IgM Ab <9 SMU (<=20) Anti-Cardiolipin IgG Antibody <14 GPL (< = 14) Anti-Cardiolipin IgA Antibody <11 APL (< = 11) Anti-Cardiolipin IgM Antibody <12 MPL (< = 12) Immature Platelet Fraction 3.1 % (0.9-8.3) Peripheral Blood Smear Path Consult Rheumatoid Factor < 10.0 U/mL (0-15) Anti-Nuclear Antibody Screen NEGATIVE (NEGATIVE) Test 10/05/17 06:32 10/06/17 00:30 10/06/17 06:21 Neutrophils % (Manual) 71.1 % Lymphocytes % (Manual) 14.9 % Monocytes % (Manual) 9.6 % Eosinophils % (Manual) 3.5 % Basophils % (Manual) 0.9 % (0-2) Neutrophils # (Manual) 7.85 K/uL (1.4-6.5) Total Absolute Neutrophils 7.85 K/uL (1.4-6.5) Lymphocytes # (Manual) 1.64 K/uL (1.2-3.4) Total Absolute Lymphocytes 1.64 K/uL (1.2-3.4) Monocytes # (Manual) 1.06 K/uL (0.11-0.59) Eosinophils # (Manual) 0.39 K/uL (0-0.5) Basophils # (Manual) 0.10 K/uL (0-0.2) Red Blood Cell Morphology Unremarkable White Blood Count 11.45 K/uL (4.8-10.8) Red Blood Count 3.42 M/uL (4.7-6.1) Hemoglobin 11.2 g/dL (14.0-18.0) Hematocrit 33.0 % (42-52) Mean Corpuscular Volume 96.5 fL (80-100) Mean Corpuscular Hemoglobin 32.7 pg (25-34) Mean Corpuscular Hemoglobin Concent 33.9 g/dl (32-36) Platelet Count 344 K/uL (130-400) Mean Platelet Volume 9.0 fL (7.4-10.4) Neutrophils (%) (Auto) 66.1 % Lymphocytes (%) (Auto) 18.5 % Monocytes (%) (Auto) 11.6 % Eosinophils (%) (Auto) 2.0 % Basophils (%) (Auto) 0.3 % Neutrophils # (Auto) 7.57 K/uL (1.4-6.5) Lymphocytes # (Auto) 2.12 K/uL (1.2-3.4) Monocytes # (Auto) 1.33 K/uL (0.11-0.59) Eosinophils # (Auto) 0.23 K/uL (0-0.5) Basophils # (Auto) 0.03 K/uL (0-0.2) RDW Standard Deviation 45.6 fL (36.4-46.3) RDW Coefficient of Variation 12.9 % (11.5-14.5) Immature Granulocyte % (Auto) 1.5 % Immature Granulocyte # (Auto) 0.17 K/uL (0.00-0.02) Prothrombin Time 12.7 SECONDS (9.0-12.0) Prothromb Time International Ratio 1.2 (0.9-1.1) Anion Gap 6.0 mmol/L (3-11) Est Creatinine Clear Calc Drug Dose 121.5 ml/min Estimated GFR () 113.0 Estimated GFR (Non- 97.5 BUN/Creatinine Ratio 11.2 (10-20) Calcium Level 8.4 mg/dl (8.5-10.1) Magnesium Level 2.3 mg/dl (1.8-2.4) Total Bilirubin 0.3 mg/dl (0.2-1) Aspartate Amino Transf (AST/SGOT) 27 U/L (15-37) Alanine Aminotransferase (ALT/SGPT) 37 U/L (12-78) Alkaline Phosphatase 60 U/L (45-117) Total Protein 6.4 gm/dl (6.4-8.2) Albumin 2.5 gm/dl (3.4-5.0) Globulin 3.9 gm/dl (2.5-4.0) Albumin/Globulin Ratio 0.6 (0.9-2) Activated Partial Thromboplast Time 57.6 SECONDS (21.0-31.0) Partial Thromboplastin Ratio 2.2 Last 24 Hours Test 10/06/17 00:30 10/06/17 06:21 White Blood Count 11.45 K/uL Red Blood Count 3.42 M/uL Hemoglobin 11.2 g/dL Hematocrit 33.0 % Mean Corpuscular Volume 96.5 fL Mean Corpuscular Hemoglobin 32.7 pg Mean Corpuscular Hemoglobin Concent 33.9 g/dl Platelet Count 344 K/uL Mean Platelet Volume 9.0 fL Neutrophils (%) (Auto) 66.1 % Lymphocytes (%) (Auto) 18.5 % Monocytes (%) (Auto) 11.6 % Eosinophils (%) (Auto) 2.0 % Basophils (%) (Auto) 0.3 % Neutrophils # (Auto) 7.57 K/uL Lymphocytes # (Auto) 2.12 K/uL Monocytes # (Auto) 1.33 K/uL Eosinophils # (Auto) 0.23 K/uL Basophils # (Auto) 0.03 K/uL RDW Standard Deviation 45.6 fL RDW Coefficient of Variation 12.9 % Immature Granulocyte % (Auto) 1.5 % Immature Granulocyte # (Auto) 0.17 K/uL Prothrombin Time 12.7 SECONDS Prothromb Time International Ratio 1.2 Sodium Level 134 mmol/L Potassium Level 4.0 mmol/L Chloride Level 101 mmol/L Carbon Dioxide Level 27 mmol/L Anion Gap 6.0 mmol/L Blood Urea Nitrogen 11 mg/dl Creatinine 0.94 mg/dl Est Creatinine Clear Calc Drug Dose 121.5 ml/min Estimated GFR () 113.0 Estimated GFR (Non- 97.5 BUN/Creatinine Ratio 11.2 Random Glucose 101 mg/dl Calcium Level 8.4 mg/dl Magnesium Level 2.3 mg/dl Total Bilirubin 0.3 mg/dl Aspartate Amino Transf (AST/SGOT) 27 U/L Alanine Aminotransferase (ALT/SGPT) 37 U/L Alkaline Phosphatase 60 U/L Total Protein 6.4 gm/dl Albumin 2.5 gm/dl Globulin 3.9 gm/dl Albumin/Globulin Ratio 0.6 Activated Partial Thromboplast Time 57.6 SECONDS Partial Thromboplastin Ratio 2.2 Assessment & Plan 47 yo M with family h/o MTHFR genetic mutation and personal h/o neurofibromatosis presents with acute onset LE DVT. Elevated homocysteine on labwork with normal B12 and folate levels. Hypercoag w/u negative to date ( some tests still pending). Pt states pain is improved but he is still requiring narcotics. Continues to try to ambulate but feels unsafe to go home at this point. tolerating PO, +constipation 1. Bilateral LE deep venous thrombosis-continues on heparin and coumadin per Hematology. Cont pain control efforts with scheduled Tylenol punctuated by Oxy PRN. Cont PT/ OT Cont compression stockings. INR is 1.2 today--adjusted dose to 7.5. Pt ok to go home on Lovenox bridge but is not ready to go home so remains on heparin drip for anti-inflammatory properties. Vascular surgery does not recommend thrombectomy or stenting at this time. 2. NF-known spinal tumors, again seen on MRI earlier this week. Ortho spine consulted to see him in the hospital with continued inability to walk. Of note , they did see him as outpatient earlier this week and reviewed MRI findings with the patient at that time. At this time no surgical intervention is recommended. 3. Back pain-improved. Would stabilized clot prior to working up back pain for other issue. Apprec Ortho spine input in light of tumors. 4. Opioid-induced constipation-continues on scheduled stool softeners and PRN Miralax. DVT proph-heparin drip/coumadin Full Code Dispo- likely home in next couple of days. [facility] Consultants: Oncology[facility] Ortho spine Current Inpatient Medications: Current Inpatient Medications Medications (Trade) Dose Ordered Sig/Yvonne Route Start Time Stop Time Status Last Admin Dose Admin Lidocaine (Lidoderm Patch 5%) 1 patch QAM TD 10/03/17 09:00 11/02/17 08:59 10/06/17 07:51 1 PATCH Miscellaneous (Remove Lidoderm Patch) 1 ea DAILY@21 N/A 10/02/17 21:00 11/01/17 20:59 10/05/17 21:00 1 EA Heparin Sodium/ Dextrose 500 ml @ 44 mls/hr [id number] PRN IV 10/02/17 08:00 11/01/17 07:59 10/06/17 11:45 44 MLS/HR Gadobutrol (Gadavist) 10 mmol UD PRN IV 10/02/17 22:30 10/06/17 22:29 Senna/Docusate Sodium (Senokot S Tab) 1 tab BID PO 10/03/17 09:00 11/02/17 08:59 10/06/17 07:51 1 TAB Ondansetron HCl (Zofran Tab) 4 mg Q8H PRN PO 10/03/17 09:30 11/02/17 09:29 10/03/17 16:00 4 MG Naloxone HCl (Narcan Inj) 0.1 mg Q5M PRN IV 10/03/17 09:30 11/02/17 09:29 Polyethylene (Miralax Powder Packet) 17 gm DAILY PRN PO 10/05/17 11:30 11/04/17 11:29 Oxycodone HCl (Roxicodone Immediate Rel Tab) @ Q4H PRN PO 10/05/17 11:15 10/19/17 11:14 10/06/17 16:49 5 MG Acetaminophen (Tylenol Tab) 1,000 mg Q8 PO 10/05/17 22:00 11/04/17 21:59 10/06/17 13:50 1,000 MG Warfarin Sodium (Coumadin Tab) 7.5 mg DAILY@16 PO 10/07/17 16:00 11/06/17 15:59
[2017-10-06] MEDS: POLYETHYLENE (MIRALAX) 17 GM PACK PO PRN (18:34)
[2017-10-06 19:00] VITALS: O2SAT 93
[2017-10-07 00:04] VITALS: BP 117/68; PULSE 79; TEMP 37.3; O2SAT 95
[2017-10-07] MEDS: OXYCODONE HCL IR 5 MG TAB (IMMEDIATE RELEASE) PO PRN ×4 (02:01→23:34)
[2017-10-07] MEDS: ACETAMINOPHEN 500 MG TAB PO SCH ×3 (05:52→21:26)
[2017-10-07 07:08] LABS: PARTIAL THROMBOPLASTIN RATIO 3.3; PROTHROMBIN TIME (PATIENT) 20.3 SECONDS (9.0-12.0)
[2017-10-07 07:25] VITALS: BP 125/69; PULSE 77; TEMP 37.3; O2SAT 98
[2017-10-07] MEDS: HEPARIN 25,000 UNIT/500ML D5W 500 ML IV PRN ×4 (07:46→23:12)
[2017-10-07] MEDS: POLYETHYLENE (MIRALAX) 17 GM PACK PO PRN (08:26)
[2017-10-07] MEDS: LIDODERM (LIDOCAINE) PATCH 5% TD SCH (08:26)
[2017-10-07] MEDS: DOCUSATE SODIUM/SENNA 50/8.6MG TAB PO SCH ×2 (08:26→21:21)
[2017-10-07 14:15] LABS: PARTIAL THROMBOPLASTIN RATIO 1.7
[2017-10-07 14:28] LABS: METHYLMALONIC ACID 144 NMOL/L (87-318)
[2017-10-07] MEDS ORDERED: HEPARIN IV BOLUS 3,000 UNIT in SYRINGE 0 ML IV ONE (14:45)
[2017-10-07 15:45] VITALS: BP 119/69; PULSE 78; TEMP 37.4; O2SAT 96
[2017-10-07] MEDS ORDERED: WARFARIN SOD 7.5 MG TAB PO SCH (16:00)
[2017-10-07] MEDS: ONDANSETRON 4 MG TAB PO PRN (17:34)
--- NOTE | 2017-10-07 18:17 | Progress Note ---
Internal Med Progress Note Date of Service: Oct 07, 2017. Provider Documentation: SUBJECTIVE: says still has significant pain not able to ambulate much standing bringing lot of pain afebrile no sob or chest pain OBJECTIVE: Vital Signs-as noted below Exam: General-alert and oriented. not in distress ENT-Normal hearing Neck-no neck masses Lungs-Cta b/l no wheezing or crackles Heart-S1 and S2 heard regular No murmurs Abdomen-Soft Bowel sounds present Non tender No distension Extremities-Left calf swollen No erythema Neuro-alert and awake moves extremities Lab data as noted below. ASSESSMENT & PLAN: As per :"47 yo M with family h/o MTHFR genetic mutation and personal h/ o neurofibromatosis presents with acute onset LE DVT. Elevated homocysteine on labwork with normal B12 and folate levels. Hypercoag w/u negative to date ( some tests still pending). Pt states pain is improved but he is still requiring narcotics. Continues to try to ambulate but feels unsafe to go home at this point. tolerating PO, +constipation" 1. Bilateral LE deep venous thrombosis-continues on heparin and Coumadin per Hematology. Seen by heme/onco and advises to f/u as out patient. Vascular surgery does not recommend thrombectomy or stenting at this time. INR 2.0 today. Will stop iv heparin in am if INR>2 in am.But still has lot of pain and not ambulating much. 2. NF-known spinal tumors, again seen on MRI earlier this week. Ortho spine consulted- no neural compression and no surgical intervention is recommended. 3. Back pain-improved. . Apprec Ortho spine input in light of tumors. 4. Opioid-induced constipation- on scheduled stool softeners and PRN Miralax. DVT proph-heparin drip/Coumadin. Full Code Dispo- OT recommends rehab social service for d/c planning Vital Signs: Date Time Temp Pulse Resp B/P (MAP) Pulse Ox O2 Delivery O2 Flow Rate FiO2 10/07/17 15:45 37.4 78 18 119/69 (86) 96 Room Air 10/07/17 08:00 Room Air 10/07/17 07:25 37.3 77 18 125/69 (87) 98 Room Air 10/07/17 00:04 37.3 79 18 117/68 (84) 95 Room Air 10/06/17 23:50 Room Air 10/06/17 19:00 93 Room Air Lab Results: Results Past 24 Hours Test 10/07/17 06:24 10/07/17 13:46 Range/Units Prothrombin Time 20.3 9.0-12.0 SECONDS Prothromb Time International Ratio 2.0 0.9-1.1 Activated Partial Thromboplast Time 85.4 43.4 21.0-31.0 SECONDS Partial Thromboplastin Ratio 3.3 1.7
[2017-10-07 21:35] LABS: PARTIAL THROMBOPLASTIN RATIO 3.6
[2017-10-07 23:35] VITALS: BP 116/67; PULSE 77; TEMP 37.1; O2SAT 94
[2017-10-08] MEDS: HEPARIN 25,000 UNIT/500ML D5W 500 ML IV PRN ×2 (02:01→06:06)
[2017-10-08] MEDS: OXYCODONE HCL IR 5 MG TAB (IMMEDIATE RELEASE) PO PRN ×5 (04:19→23:32)
[2017-10-08 05:23] LABS: HEMATOCRIT 34.3 % (42-52); MEAN CELL VOLUME 98.6 fL (80-100); MEAN CORPUSCULAR HGB CONC 33.5 g/dl (32-36); MEAN PLATELET VOLUME 8.9 fL (7.4-10.4); PLATELET COUNT 460 K/uL (130-400); RED BLOOD COUNT 3.48 M/uL (4.7-6.1); WHITE BLOOD COUNT 10.03 K/uL (4.8-10.8)
[2017-10-08] MEDS: ACETAMINOPHEN 500 MG TAB PO SCH ×3 (05:42→22:04)
[2017-10-08 05:47] LABS: PARTIAL THROMBOPLASTIN RATIO 2.4
[2017-10-08 07:40] VITALS: BP 114/63; PULSE 80; TEMP 37; O2SAT 96
[2017-10-08] MEDS: DOCUSATE SODIUM/SENNA 50/8.6MG TAB PO SCH ×2 (08:03→19:24)
[2017-10-08 08:09] LABS: INR 3.4 (0.9-1.1); PROTHROMBIN TIME (PATIENT) 34.7 SECONDS (9.0-12.0)
[2017-10-08] MEDS: LIDODERM (LIDOCAINE) PATCH 5% TD SCH (11:37)
[2017-10-08 14:51] VITALS: BP 111/68; PULSE 71; TEMP 37; O2SAT 96
[2017-10-08 16:00] VITALS: O2SAT 94
--- NOTE | 2017-10-08 19:11 | Progress Note ---
Internal Med Progress Note Date of Service: Oct 08, 2017. Provider Documentation: SUBJECTIVE: says still has significant pain and not walking much and request to adjust pain meds afebrile eating ok no blood in stools or black stools OBJECTIVE: Vital Signs-as noted below Exam: General-alert and oriented. not in distress ENT-Normal hearing Neck-no neck masses Lungs-Cta b/l no wheezing or crackles Heart-S1 and S2 heard regular No murmurs Abdomen-Soft Bowel sounds present Non tender No distension Extremities-Left calf swollen No erythema Neuro-alert and awake moves extremities Lab data as noted below. ASSESSMENT & PLAN: As per :"47 yo M with family h/o MTHFR genetic mutation and personal h/ o neurofibromatosis presents with acute onset LE DVT. Elevated homocysteine on labwork with normal B12 and folate levels. Hypercoag w/u negative to date ( some tests still pending). Pt states pain is improved but he is still requiring narcotics. Continues to try to ambulate but feels unsafe to go home at this point. tolerating PO, +constipation" 1. Bilateral LE deep venous thrombosis-continues on heparin and Coumadin per Hematology. Seen by heme/onco and advises to f/u as out patient. Vascular surgery does not recommend thrombectomy or stenting at this time. INR 3.4 today. stooped iv heparin. hold Coumadin today. f/u inr in am 2. Ambulatory dysfunction secondary to severe pain from extensive dvt. pain control. pt/ot 3. NF-known spinal tumors, again seen on MRI earlier this week. Ortho spine consulted- no neural compression and no surgical intervention is recommended. 4. Back pain-improved. . Apprec Ortho spine inputs. 4. Opioid-induced constipation- on scheduled stool softeners and PRN Miralax. DVT proph-inr 3.4 Full Code Dispo- OT recommends rehab social service for d/c planning Vital Signs: Date Time Temp Pulse Resp B/P (MAP) Pulse Ox O2 Delivery O2 Flow Rate FiO2 10/08/17 16:00 94 Room Air 10/08/17 14:51 37.0 71 18 111/68 (82) 96 Room Air 10/08/17 08:00 Room Air 10/08/17 07:40 37.0 80 22 114/63 (80) 96 Room Air 10/08/17 00:15 Room Air 10/07/17 23:35 37.1 77 20 116/67 (83) 94 Room Air Lab Results: Results Past 24 Hours Test 10/07/17 21:02 10/08/17 04:59 Range/Units Activated Partial Thromboplast Time 94.5 63.2 21.0-31.0 SECONDS Partial Thromboplastin Ratio 3.6 2.4 White Blood Count 10.03 4.8-10.8 K/uL Red Blood Count 3.48 4.7-6.1 M/uL Hemoglobin 11.5 14.0-18.0 g/dL Hematocrit 34.3 42-52 % Mean Corpuscular Volume 98.6 80-100 fL Mean Corpuscular Hemoglobin 33.0 25-34 pg Mean Corpuscular Hemoglobin Concent 33.5 32-36 g/dl RDW Standard Deviation 48.1 36.4-46.3 fL RDW Coefficient of Variation 13.4 11.5-14.5 % Platelet Count 460 130-400 K/uL Mean Platelet Volume 8.9 7.4-10.4 fL Prothrombin Time 34.7 9.0-12.0 SECONDS Prothromb Time International Ratio 3.4 0.9-1.1
[2017-10-08] MEDS ORDERED: LORAZEPAM 1 MG TAB PO ONE (19:15)
[2017-10-08 23:16] VITALS: BP 101/60; PULSE 89; TEMP 36.7; O2SAT 94
[2017-10-09] MEDS: OXYCODONE HCL IR 5 MG TAB (IMMEDIATE RELEASE) PO PRN ×3 (03:57→18:07)
[2017-10-09] MEDS: ACETAMINOPHEN 500 MG TAB PO SCH ×3 (05:52→22:06)
[2017-10-09] MEDS ORDERED: HEPARIN IV BOLUS 4,000 UNIT in SYRINGE 0 ML IV ONE (06:45)
[2017-10-09] MEDS ORDERED: HEPARIN 25,000 UNIT/500ML D5W 500 ML IV PRN (06:45)
[2017-10-09 07:14] LABS: HEMATOCRIT 34.6 % (42-52); MEAN CELL VOLUME 97.7 fL (80-100); MEAN CORPUSCULAR HEMOGLOBIN 32.8 pg (25-34); MEAN CORPUSCULAR HGB CONC 33.5 g/dl (32-36); MEAN PLATELET VOLUME 8.8 fL (7.4-10.4); PLATELET COUNT 400 K/uL (130-400); RED BLOOD COUNT 3.54 M/uL (4.7-6.1)
[2017-10-09 07:21] LABS: INR 2.4 (0.9-1.1); PARTIAL THROMBOPLASTIN RATIO 1.5; PROTHROMBIN TIME (PATIENT) 24.3 SECONDS (9.0-12.0)
[2017-10-09] MEDS: LIDODERM (LIDOCAINE) PATCH 5% TD SCH (07:27)
[2017-10-09] MEDS: DOCUSATE SODIUM/SENNA 50/8.6MG TAB PO SCH ×2 (07:27→21:03)
[2017-10-09 07:34] VITALS: BP 116/69; PULSE 86; TEMP 37.1; O2SAT 96
[2017-10-09 08:00] VITALS: O2SAT 96
[2017-10-09] MEDS ORDERED: MoRPHine SULFATE 4 MG/ML 1 ML CARP\\VIAL ONE (10:09)
[2017-10-09] MEDS ORDERED: MoRPHine SULFATE 4 MG/ML 1 ML CARP\\VIAL IV ONE (10:15)
--- NOTE | 2017-10-09 10:20 | DIAGNOSTIC IMAGING REPORT ---
BILATERAL LOWER EXTREMITY VENOUS DOPPLER CLINICAL HISTORY: Evaluate for extension of deep venous thrombus. COMPARISON STUDY: Left lower extremity Doppler ultrasound October 02, 2017 and CTA of the abdomen and pelvis October 02, 2017. TECHNIQUE: Sonography of the deep venous system of the bilateral lower extremities was performed. Compression and augmentation were evaluated. FINDINGS: Note is made of extensive deep venous thrombus within each lower extremity. The thrombus extends from the bilateral common femoral veins through the calf vessels. The thrombus is largely occlusive. There is also extensive thrombus within the bilateral common iliac, external iliac and internal iliac veins, as shown on prior CT of October 02, 2017. IMPRESSION: Massive deep venous thrombus throughout the bilateral lower extremities, bilateral common iliac, internal iliac and external iliac veins, as shown on CT of October 02, 2017. IVC not well-visualized on this exam but extensive thrombus within the IVC on prior CTA. Electronically signed by: Didier Adam M.D. 10/09/2017 10:18 AM Dictated Date/Time: 10/09/2017 10:14 AM
[2017-10-09] MEDS ORDERED: MoRPHine SULFATE 2 MG/ML CARP ONE (14:13)
[2017-10-09 14:53] VITALS: BP 116/70; PULSE 91; TEMP 36.8; O2SAT 92
[2017-10-09 15:02] VITALS: BP 116/70
[2017-10-09] MEDS ORDERED: WARFARIN SOD 6 MG TAB PO SCH (16:00)
--- NOTE | 2017-10-09 16:27 | Progress Note ---
Medicine Progress Note Date & Time of Visit: Oct 09, 2017 at 15:46. Subjective Pt was seen and examined Lying in bed with no distress I had a lengthy discussion with the and his twin brother Pt said that he continues to have a lot of pain in his b/l LE He said that he does not think that he is getting enough pain med Pt said that pain worst when he stands on his legs He has not been moving around he said that he is getting very anxious due to the pain Denies any SOB, palpitation, Dizziness, bladder or bowl loss Objective Last 8 Hrs Date Time Temp Pulse Resp B/P (MAP) Pulse Ox O2 Delivery O2 Flow Rate FiO2 10/09/17 14:53 36.8 91 18 116/70 (85) 92 Room Air 10/09/17 08:00 96 Room Air Physical Exam: General- No acute distress Head- atraumatic Eyes- PERRL, EOMI ENT- oropharynx clear Neck- supple, no JVD Lungs- clear to auscultation Heart- regular rhythm; no murmur Abdomen- normal bowel sounds, soft Extremities- +tenderness in b/l LE, +edema Neuro- alert, oriented x 3; PERRL Skin- warm & dry Laboratory Results: Last 24 Hours Test 10/09/17 06:40 White Blood Count 11.50 K/uL Red Blood Count 3.54 M/uL Hemoglobin 11.6 g/dL Hematocrit 34.6 % Mean Corpuscular Volume 97.7 fL Mean Corpuscular Hemoglobin 32.8 pg Mean Corpuscular Hemoglobin Concent 33.5 g/dl RDW Standard Deviation 46.9 fL RDW Coefficient of Variation 13.2 % Platelet Count 400 K/uL Mean Platelet Volume 8.8 fL Prothrombin Time 24.3 SECONDS Prothromb Time International Ratio 2.4 Activated Partial Thromboplast Time 39.7 SECONDS Partial Thromboplastin Ratio 1.5 Assessment & Plan B/L LE DVT Doppler U/S showed massive deep venous thrombus throughout the bilateral lower extremities 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 Hem/onc on board has been on heparin drip Coumadin was on hold yesterday due to IND 3.4 Resume Coumadin at a lower dose D/C IV heparin since INR has been therapeutic for more than 48 hrs and pt has been on heparin drip for more than 5 days Continue monitor INR NO signs of PE and CTA chest showed no evidence for PE Vascular was consulted recommended to treat with anticoagulant/No IVC filter placement/ No thrombectomy Will need to follow with Hem/onc as an outpatient Ambulatory dysfunction B/L LE extremity tenderness Secondary to massive extensive DVT B/L Pt has not been moving much PT on board recommended inpatient rehab skilled to optimize his functional mobility Pain management consulted Continue PT/OT NF-known spinal tumors Ortho spine consulted and reviewed imaging Recommended no surgical intervention since there is no neural compression Denies any bowel or bladder loss Continue monitor Chronic back pain Continue pain controlled Consider to add baclofen Opioid-induced constipation Continue stool softeners and PRN Miralax. DVT px INR 2.4 Continue Coumadin CODE STATUS Full Code Disposition Will discuss with case management for possible rehab Consultants: [facility] Current Inpatient Medications: Current Inpatient Medications Medications (Trade) Dose Ordered Sig/Yvonne Route Start Time Stop Time Status Last Admin Dose Admin Lidocaine (Lidoderm Patch 5%) 1 patch QAM TD 10/03/17 09:00 11/02/17 08:59 10/08/17 11:37 1 PATCH Miscellaneous (Remove Lidoderm Patch) 1 ea DAILY@21 N/A 10/02/17 21:00 11/01/17 20:59 10/08/17 19:25 1 EA Senna/Docusate Sodium (Senokot S Tab) 1 tab BID PO 10/03/17 09:00 11/02/17 08:59 10/09/17 07:27 1 TAB Ondansetron HCl (Zofran Tab) 4 mg Q8H PRN PO 10/03/17 09:30 11/02/17 09:29 10/07/17 17:34 4 MG Naloxone HCl (Narcan Inj) 0.1 mg Q5M PRN IV 10/03/17 09:30 11/02/17 09:29 Polyethylene (Miralax Powder Packet) 17 gm DAILY PRN PO 10/05/17 11:30 11/04/17 11:29 10/07/17 08:26 17 GM Acetaminophen (Tylenol Tab) 1,000 mg Q8 PO 10/05/17 22:00 11/04/17 21:59 10/09/17 14:17 1,000 MG Warfarin Sodium (Coumadin Tab) 6 mg DAILY@16 PO 10/09/17 16:00 11/08/17 15:59 Heparin Sodium/ Dextrose 500 ml @ 20 mls/hr Q24H PRN IV 10/09/17 06:45 11/08/17 06:44 10/09/17 07:31 20 MLS/HR Morphine Sulfate (MoRPHine SULFATE INJ) 2 mg Q8 PRN IV 10/09/17 14:15 10/23/17 14:14 Oxycodone HCl (Roxicodone Immediate Rel Tab) @ Q6 PRN PO 10/09/17 14:15 10/19/17 11:14
--- NOTE | 2017-10-09 19:37 | Hematology/Oncology Prog Note ---
Hematology/Onc Progress Note Date of Service Oct 09, 2017. Subjective patient seen and examined S: states still having pain in lower extremities, pain scale now 5. He states that he had a lot of pain earlier this morning but he is feeling better now He has noticed improvement in the edema He uses the walker when he gets up he denies any abdominal pain or cough or shortness of breath or melena or hematochezia Denies back pain Review of Systems: Constitutional: No fever, No chills, No sweats Respiratory: No cough, No sputum, No wheezing, No shortness of breath, No dyspnea on exertion, No dyspnea at rest, No hemoptysis Cardiovascular: + edema (improved), No chest pain Abdomen: No pain, No nausea, No vomiting, No GI bleeding Vital Signs Vital Signs Past 12 Hours Date Time Temp Pulse Resp B/P (MAP) Pulse Ox O2 Delivery O2 Flow Rate FiO2 10/09/17 16:00 Room Air 10/09/17 14:53 36.8 91 18 116/70 (85) 92 Room Air 10/09/17 08:00 96 Room Air 10/09/17 07:34 37.1 86 18 116/69 (85) 96 Room Air Physical Exam Gen: awake and alert NAD HEENT: anicteric no pallor Lungs: CTAB, no wheezes or rales or rhonchi CV: S1 S2 RRR Abd: +BS soft NT/ND no guarding or rebound Ext: +edema improved Laboratory Results Past 24 Hours Test 10/09/17 06:40 Range/Units White Blood Count 11.50 4.8-10.8 K/uL Red Blood Count 3.54 4.7-6.1 M/uL Hemoglobin 11.6 14.0-18.0 g/dL Hematocrit 34.6 42-52 % Mean Corpuscular Volume 97.7 80-100 fL Mean Corpuscular Hemoglobin 32.8 25-34 pg Mean Corpuscular Hemoglobin Concent 33.5 32-36 g/dl RDW Standard Deviation 46.9 36.4-46.3 fL RDW Coefficient of Variation 13.2 11.5-14.5 % Platelet Count 400 130-400 K/uL Mean Platelet Volume 8.8 7.4-10.4 fL Prothrombin Time 24.3 9.0-12.0 SECONDS Prothromb Time International Ratio 2.4 0.9-1.1 Activated Partial Thromboplast Time 39.7 21.0-31.0 SECONDS Partial Thromboplastin Ratio 1.5 lupus anticoagulant weakly positive 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 Lupus anticoagulant was weakly positive so recommend rechecking this in 3 months (>12 weeks) Recommend age and gender appropriate screening Continue coumadin and he should have close follow up with coumadin clinic to maintain INRs in therapeutic range of 2.5 +/-0.5 I discussed with him that given the extensive venous thrombosis and also unprovoked I would recommend indefinite anticoagulation Follow up in the office upon discharge. please call if questions Will sign off
[2017-10-09 21:15] VITALS: BP 135/88; PULSE 67
[2017-10-09] MEDS: MoRPHine SULFATE 2 MG/ML CARP IV PRN (22:07)
[2017-10-09 23:34] VITALS: BP 134/74; PULSE 91; TEMP 37.2; O2SAT 92
[2017-10-10] MEDS: OXYCODONE HCL IR 5 MG TAB (IMMEDIATE RELEASE) PO PRN ×4 (00:05→17:23)
[2017-10-10] MEDS: ACETAMINOPHEN 500 MG TAB PO SCH ×2 (06:02→14:15)
[2017-10-10] MEDS: POLYETHYLENE (MIRALAX) 17 GM PACK PO PRN (06:06)
[2017-10-10 07:46] LABS: HEMATOCRIT 34.7 % (42-52); MEAN CELL VOLUME 96.4 fL (80-100); MEAN CORPUSCULAR HEMOGLOBIN 32.5 pg (25-34); MEAN CORPUSCULAR HGB CONC 33.7 g/dl (32-36); MEAN PLATELET VOLUME 8.9 fL (7.4-10.4); PLATELET COUNT 405 K/uL (130-400)
[2017-10-10 07:57] VITALS: BP 121/70; PULSE 87; TEMP 36.4; O2SAT 96
[2017-10-10 08:11] LABS: INR 3.1 (0.9-1.1); PARTIAL THROMBOPLASTIN RATIO 1.8; PROTHROMBIN TIME (PATIENT) 32.2 SECONDS (9.0-12.0)
[2017-10-10] MEDS: LIDODERM (LIDOCAINE) PATCH 5% TD SCH (08:13)
[2017-10-10] MEDS: DOCUSATE SODIUM/SENNA 50/8.6MG TAB PO SCH (08:14)
[2017-10-10] MEDS ORDERED: BACLOFEN 10 MG TAB PO PRN (08:45)
[2017-10-10] MEDS ORDERED: FERROUS SULFATE 325 MG TAB PO SCH (09:00)
[2017-10-10] MEDS: GABAPENTIN 300 MG CAP PO SCH ×2 (09:56→14:15)
[2017-10-10] MEDS: MoRPHine SULFATE 2 MG/ML CARP IV PRN (10:23)
--- NOTE | 2017-10-10 10:53 | Pain Management Consultation ---
Pain Management Consultation Date of Consultation Oct 10, 2017. 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 He has a strong family history of DVT and is being worked up for a genetic mutation. He reports that about 16 years ago he had a history of lumbago with left lower extremity lumbar radiculitis but on questioning today he reports that his pain is from bilateral thighs distal. He characterizes his pain as cramping aching pressure-type feeling worse with standing. He states that hydromorphone tends to diminish his pain only slightly. He reports that he is only able to stand for about 1 minute in duration due to pain. He states that his pain is slightly improving as he was unable to stand or walk even with a walker earlier in this admission and is now able to do so. He denies any type of lumbar ago or radicular symptoms stating that the pain is global from bilateral thigh down to his toes. He characterizes his pain as constant ranging between 3 and 8 out of 10. He denies any bowel or bladder incontinence, motor weakness, foot drop, falls, trauma to his lower extremities. He denies any other constitutional complaints at this time including shortness of breath dizziness palpitations or hemoptysis. Past Medical/Surgical History (1) Deep vein thrombosis (DVT) of left lower extremity (2) Asthma (3) Environmental and seasonal allergies (4) Lumbar back pain with radiculopathy affecting left lower extremity (5) Neurofibromatosis, Unspecified Family History Patient reports no known family medical history. 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 Allergies Coded Allergies: No Known Allergies (Unverified , 09/29/17) Medications Current Inpatient Medications Medications (Trade) Dose Ordered Sig/Yvonne Route Start Time Stop Time Status Last Admin Dose Admin Lidocaine (Lidoderm Patch 5%) 1 patch QAM TD 10/03/17 09:00 11/02/17 08:59 10/08/17 11:37 1 PATCH Miscellaneous (Remove Lidoderm Patch) 1 ea DAILY@21 N/A 10/02/17 21:00 11/01/17 20:59 10/08/17 19:25 1 EA Senna/Docusate Sodium (Senokot S Tab) 1 tab BID PO 10/03/17 09:00 11/02/17 08:59 10/10/17 08:14 1 TAB Ondansetron HCl (Zofran Tab) 4 mg Q8H PRN PO 10/03/17 09:30 11/02/17 09:29 10/07/17 17:34 4 MG Naloxone HCl (Narcan Inj) 0.1 mg Q5M PRN IV 10/03/17 09:30 11/02/17 09:29 Polyethylene (Miralax Powder Packet) 17 gm DAILY PRN PO 10/05/17 11:30 11/04/17 11:29 10/10/17 06:06 17 GM Acetaminophen (Tylenol Tab) 1,000 mg Q8 PO 10/05/17 22:00 11/04/17 21:59 10/10/17 06:02 1,000 MG Warfarin Sodium (Coumadin Tab) 6 mg DAILY@16 PO 10/09/17 16:00 11/08/17 15:59 10/09/17 15:51 6 MG Morphine Sulfate (MoRPHine SULFATE INJ) 2 mg Q8 PRN IV 10/09/17 14:15 10/23/17 14:14 10/10/17 10:23 2 MG Oxycodone HCl (Roxicodone Immediate Rel Tab) @ Q6 PRN PO 10/09/17 14:15 10/19/17 11:14 10/10/17 06:03 10 MG Ferrous Sulfate (Feosol Tab) 325 mg QAM PO 10/10/17 09:00 11/09/17 08:59 10/10/17 08:14 325 MG Gabapentin (Neurontin Cap) 300 mg TID PO 10/10/17 09:00 11/09/17 08:59 10/10/17 09:56 300 MG Nortriptyline HCl (Pamelor Cap) 25 mg HS PO 10/10/17 21:00 11/09/17 20:59 Baclofen (Lioresal Tab) 10 mg TID PRN PO 10/10/17 08:45 11/09/17 08:44 10/10/17 09:55 10 MG Review of Systems 10 point review of systems was otherwise negative aside from HPI Physical Exam Height & Weight: Height 6 feet, 0.00 inches. Weight 100.000 (Kilograms) 220 (Pounds) Last Vital Signs Documentation Date Time Temp Pulse Resp B/P (MAP) Pulse Ox O2 Delivery O2 Flow Rate FiO2 10/10/17 08:00 Room Air 10/10/17 07:57 36.4 87 18 121/70 (87) 96 10/02/17 06:56 2.0 Exam: In general he is awake alert and oriented 3 appearing in no acute distress sitting in his bedside table. Pupils are equal round and reactive to light He has adequate range of motion motion in his cervical spine No audible wheezing or rhonchi chest excursion is within normal limits He has preservation of lumbar lordosis curve in his lumbar spine with adequate range of motion He has 5 out of 5 strength in all extremities equal throughout with intact sensation and a negative straight leg raise bilaterally no appreciable ankle clonus Gait was not observed Laboratory Laboratory Results (Last CBC): 10/10/17 07:[address] Findings Patient: PHILIP PRATHER Address1: [address] [place] [address] Rec: [id number] Address2: Acct ID: [id number] [facility] Zip: [place] [address] Date: 1970 Sex: M Room/Bed: [facility] Ref Phy: Al Whitney, D.O. SC: [id number] Att Phy: Braxton Lyle MD Report #: [id number] Edita Phy: Al Whitney, D.OWai Test: VDLEB Admit Phy: Paige Nath DO Absorber Operator: JUSTINA Interpreting Phy: Didier Adam MD Diagnosis: DVT OF LEFT LOWER EXTREMITY Ordering Phy: Braxton Lyle MD Service Date: 10/09/17 Admit Date: 10/02/1712/14/17 MNE: [id number] CONF: DICTATED BY: Didier Adam MD]] CC: Al Whitney, D.OBraxton Canas MD Endcc: [~ rep ct add3]] BILATERAL LOWER EXTREMITY VENOUS DOPPLER CLINICAL HISTORY: Evaluate for extension of deep venous thrombus. COMPARISON STUDY: Left lower extremity Doppler ultrasound October 02, 2017 and CTA of the abdomen and pelvis October 02, 2017. TECHNIQUE: Sonography of the deep venous system of the bilateral lower extremities was performed. Compression and augmentation were evaluated. FINDINGS: Note is made of extensive deep venous thrombus within each lower extremity. The thrombus extends from the bilateral common femoral veins through the calf vessels. The thrombus is largely occlusive. There is also extensive thrombus within the bilateral common iliac, external iliac and internal iliac veins, as shown on prior CT of October 02, 2017. IMPRESSION: Massive deep venous thrombus throughout the bilateral lower extremities, bilateral common iliac, internal iliac and external iliac veins, as shown on CT of October 02, 2017. IVC not well-visualized on this exam but extensive thrombus within the IVC on prior CTA. Other Findings Patient: PHILIP PRATHER Address1: [address] [place] [address] Rec: [id number] Address2: Acct ID: [id number] [facility] Zip: [place] [address] Date: 1970 Sex: M Room/Bed: [facility] Ref Phy: Al Whitney D.O. SC: [id number] Att Phy: Paige Nath DO Report #: [id number] Edita Phy: Al Whitney D.O. Test: AAPW Admit Phy: Paige Nath DO Absorber Operator: SLY Interpreting Phy: Jeff Jon MD Diagnosis: DVT OF LEFT LOWER EXTREMITY Ordering Phy: Afsaneh Ohara DO Service Date: 10/02/17 Admit Date: 10/02/1712/14/17 MNE: [id number] CONF: DICTATED BY: Jeff Jon MD]] CC: Al Whitney D.O. Pheasant, Karen S., DO Sumner, Sabrina M., DO Endcc: [~ rep ct add3]] ANGIO ABD/PELVIS WITH CONTRAST CLINICAL HISTORY: 47 years-old Male presenting with EXTENSIVE DVT, BACK PAIN, pain in the left leg radiating into the back. TECHNIQUE: Multidetector CT angiography of the abdomen and pelvis was performed after the administration of intravenous contrast. 3-D volumetric and/or maximum intensity projection (MIP) images were subsequently reconstructed for review. IV contrast: 120 mL of Optiray 320. A dose lowering technique was used consistent with the principles of ALARA (as low as reasonably achievable). Stenosis measurements were based on NASCET-like criteria. COMPARISON: Ultrasound from earlier the same day. CT DOSE (mGy.cm): The estimated cumulative dose is 1618.79 mGy.cm. FINDINGS: Cloud Physicist topogram: Unremarkable. Lung bases: Minimal dependent changes likely atelectasis. Normal heart size. No pericardial or pleural effusion. Liver: Normal morphology. No liver lesion allowing for the arterial phase of contrast. Conventional hepatic arterial anatomy. Biliary: No intrahepatic or extrahepatic biliary ductal dilatation. Normal gallbladder. Pancreas: Normal. Spleen: Normal. Adrenal glands: Normal. Kidneys and ureters: No nephrolithiasis. No hydronephrosis. Normal parenchymal enhancement though the left kidney appears mildly enlarged relative to the right. The kidneys have not yet excreted contrast. Mild right pelvocaliectasis. Multiple parapelvic cysts suspected in the left kidney. Mild left pelviectasis. The ureters are mildly dilated. No obstructing calculus. The right renal veins are patent. The proximal left renal veins are patent though abrupt cut off of the left renal vein noted proximal to the left lateral aspect of the aorta with multiple collateral veins providing drainage via lumbar vessels as well as the azygos/hemiazygos systems. Renal arteries patent. Bladder: Bladder is elongated and incompletely distended with mild circumferential bladder wall thickening and mild perivesicular fat stranding most pronounced in the space of Retzius. Pelvic organs: Prostate and seminal vesicles normal. Bowel: Mild stool burden in normal caliber colon. The appendix is normal. No bowel obstruction. Peritoneal cavity: No free fluid or intraperitoneal gas. However, extensive retroperitoneal fluid is noted in the extraperitoneal portion of the pelvis and extending superiorly in the retroperitoneum below the level of the kidneys. Lymph nodes: No enlarged lymph nodes in the abdomen or pelvis. Vasculature: The aorta is patent and normal in caliber. The IVC is occluded below the level of the right renal vein. Multiple collateral veins evident at the level of the renal arteries with drainage pathways into the azygos/hemiazygos systems. Some of these collateral veins as well as the lower portion of the IVC are occluded with thrombus. Thrombus expands the bilateral common, internal, and external iliac veins tremendous with surrounding edema noted. These changes extend to the proximal lower extremities. Pre and postcontrast imaging does not image straight convincing evidence of enhancement of the thrombus. Abdominal wall: Normal. Musculoskeletal: Normal. IMPRESSION: 1. Massive amount of occlusive thrombus in the IVC, collateral veins, bilateral common, external, and internal iliac veins extending into the lower extremities. The expansion of the venous diameter could raise concern for tumor thrombus, though no enhancement is appreciated comparing pre and postcontrast imaging to substantiate this. Findings most consistent with extensive bland thrombus. Such extensive deep venous thrombosis could suggest an underlying coagulation disorder or autoimmune disease such as antiphospholipid syndrome. 2. Retroperitoneal fluid likely secondary to venous obstruction. 3. Mild bladder wall thickening with an elongated bladder configuration possibly suggesting underlying neurogenic bladder or cystitis. Correlate with urinalysis. 4. Possible mild bilateral hydronephrosis, which could be a functional obstruction from retroperitoneal fluid/venous obstruction. Opioid Risk Assessment Risk assessment performed, minimal risk identified DIRE 17 Assessment 1. Acute bilateral lower extremity pain secondary to extensive DVT burden creating neuropathic type pain 2. History of neurofibromas 3. MTHFR C677T mutation leading to extensive clot formation Recommendations 1. Recommend initiation of gabapentin 300 mg by mouth 3 times a day as well as nortriptyline 25 mg by mouth daily at bedtime to diminish neuropathic type pain. I suspect that with resolution of his clot burden that he should have diminishing pain. 2. Will order baclofen 10 mg by mouth every 8 when necessary to diminish myofascial pain and spasm. 3. Continue OxyIR 5-10 mg by mouth every 6 when necessary pain. No changes were made to his IV morphine dosing however the patient understands that morphine will not be a at-home med. 4. There are no plans for any interventional pain treatment at this time. 5. Thank you very much for this consultation please call with any questions
[2017-10-10] MEDS ORDERED: NURSING VERBAL MED ORDER ONE ×2 (14:45→17:30)
[2017-10-10] MEDS ORDERED: LACTULOSE SYRUP 30 GM/45 ML UDP PO ONE (15:00)
[2017-10-10 15:32] VITALS: BP 117/72; PULSE 92; TEMP 37.1; O2SAT 95
[2017-10-10] MEDS ORDERED: WARFARIN SOD 5 MG TAB PO SCH (16:00)
--- NOTE | 2017-10-10 17:04 | Progress Note ---
Medicine Progress Note Date & Time of Visit: Oct 10, 2017 at 10:51. Subjective Pt was seen and examined Lying in bed with no distress Pt said that pain is slightly better Denies any chest pain, palpitation and SOB Objective Last 8 Hrs Date Time Temp Pulse Resp B/P (MAP) Pulse Ox O2 Delivery O2 Flow Rate FiO2 10/10/17 15:32 37.1 92 19 117/72 (87) 95 Room Air Physical Exam: General- No acute distress Head- atraumatic Eyes- PERRL, EOMI ENT- oropharynx clear Neck- supple, no JVD Lungs- clear to auscultation Heart- regular rhythm; no murmur Abdomen- normal bowel sounds, soft Extremities- +tenderness in b/l LE, +edema Neuro- alert, oriented x 3; PERRL Skin- warm & dry Laboratory Results: Last 24 Hours Test 10/10/17 07:17 White Blood Count 13.40 K/uL Red Blood Count 3.60 M/uL Hemoglobin 11.7 g/dL Hematocrit 34.7 % Mean Corpuscular Volume 96.4 fL Mean Corpuscular Hemoglobin 32.5 pg Mean Corpuscular Hemoglobin Concent 33.7 g/dl RDW Standard Deviation 46.4 fL RDW Coefficient of Variation 13.1 % Platelet Count 405 K/uL Mean Platelet Volume 8.9 fL Prothrombin Time 32.2 SECONDS Prothromb Time International Ratio 3.1 Activated Partial Thromboplast Time 46.8 SECONDS Partial Thromboplastin Ratio 1.8 Assessment & Plan B/L LE DVT Doppler U/S showed massive deep venous thrombus throughout the bilateral lower extremities 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 Hem/onc on board has been on heparin drip Coumadin was on hold yesterday due to IND 3.4 Resume Coumadin at a lower dose D/C IV heparin since INR has been therapeutic for more than 48 hrs and pt has been on heparin drip for more than 5 days Continue monitor INR NO signs of PE and CTA chest showed no evidence for PE Vascular was consulted recommended to treat with anticoagulant/No IVC filter placement/ No thrombectomy Will need to follow with Hem/onc as an outpatient 10/10 INR 3.1 today Will discharge on coumadin 5 mg Case discussed with Hematology yesterday Positive for 1 copy of Factor V leiden mutation which makes him at increased risk of venous thromboembolism 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 homocysteine was slightly elevated, repeat homocysteine pending Advised pt family members should get genetic testing for MTHFR and Factor V leiden mutation Lupus anticoagulant was weakly positive so recommend rechecking this in 3 months (>12 weeks) Will need coumadin indefinite as per hematology Continue monitor INR Follow with the coag clinic Ambulatory dysfunction B/L LE extremity tenderness Secondary to massive extensive DVT B/L Pt has not been moving much PT on board recommended inpatient rehab skilled to optimize his functional mobility Pain management consulted Continue PT/OT plan to go to rehab Pain improved NF-known spinal tumors Ortho spine consulted and reviewed imaging Recommended no surgical intervention since there is no neural compression Denies any bowel or bladder loss Continue monitor Chronic back pain Thigh pain Continue pain controlled pain management on board Continue oxycodone 5-10 mg q6h Starting on baclofen 10mg q8hm, gabapentin 300mg q8h and nortriptyline Consider to reduce pain med once pain improve Opioid-induced constipation Continue stool softeners and PRN Miralax. DVT px INR 3.1 today Will give coumadin 5 mg CODE STATUS Full Code Disposition Will discharge to rehab today Consultants: Oncology-[facility] Ortho spine Current Inpatient Medications: Current Inpatient Medications Medications (Trade) Dose Ordered Sig/Yvonne Route Start Time Stop Time Status Last Admin Dose Admin Lidocaine (Lidoderm Patch 5%) 1 patch QAM TD 10/03/17 09:00 11/02/17 08:59 10/08/17 11:37 1 PATCH Miscellaneous (Remove Lidoderm Patch) 1 ea DAILY@21 N/A 10/02/17 21:00 11/01/17 20:59 10/08/17 19:25 1 EA Senna/Docusate Sodium (Senokot S Tab) 1 tab BID PO 10/03/17 09:00 11/02/17 08:59 10/10/17 08:14 1 TAB Ondansetron HCl (Zofran Tab) 4 mg Q8H PRN PO 10/03/17 09:30 11/02/17 09:29 10/07/17 17:34 4 MG Naloxone HCl (Narcan Inj) 0.1 mg Q5M PRN IV 10/03/17 09:30 11/02/17 09:29 Polyethylene (Miralax Powder Packet) 17 gm DAILY PRN PO 10/05/17 11:30 11/04/17 11:29 10/10/17 06:06 17 GM Acetaminophen (Tylenol Tab) 1,000 mg Q8 PO 10/05/17 22:00 11/04/17 21:59 10/10/17 14:15 1,000 MG Morphine Sulfate (MoRPHine SULFATE INJ) 2 mg Q8 PRN IV 10/09/17 14:15 10/23/17 14:14 10/10/17 10:23 2 MG Oxycodone HCl (Roxicodone Immediate Rel Tab) @ Q6 PRN PO 10/09/17 14:15 10/19/17 11:14 10/10/17 12:58 10 MG Ferrous Sulfate (Feosol Tab) 325 mg QAM PO 10/10/17 09:00 11/09/17 08:59 10/10/17 08:14 325 MG Gabapentin (Neurontin Cap) 300 mg TID PO 10/10/17 09:00 11/09/17 08:59 10/10/17 14:15 300 MG Nortriptyline HCl (Pamelor Cap) 25 mg HS PO 10/10/17 21:00 11/09/17 20:59 Baclofen (Lioresal Tab) 10 mg TID PRN PO 10/10/17 08:45 11/09/17 08:44 10/10/17 09:55 10 MG Warfarin Sodium (Coumadin Tab) 5 mg DAILY@16 PO 10/10/17 16:00 11/09/17 15:59 10/10/17 16:13 5 MG
[2017-10-10] MEDS ORDERED: OXYC1TAB3 PO (17:09)
[2017-10-10] MEDS ORDERED: NRT25 PO (17:09)
[2017-10-10] MEDS ORDERED: FRRS300 PO (17:09)
[2017-10-10] MEDS ORDERED: LRS10 PO (17:09)
[2017-10-10] MEDS ORDERED: MRLP17X PO (17:09)
[2017-10-10] MEDS ORDERED: NRN300 PO (17:09)
[2017-10-10] MEDS ORDERED: CMD5 PO (17:09)
--- NOTE | 2017-10-10 17:28 | Discharge Instructions ---
Discharge Instructions Date of Service Oct 10, 2017. Admission Reason for Admission: Dvt Of Left Lower Extremity Discharge Discharge Diagnosis / Problem: B/L Lower extremities DVT/Ambulatory dysfunction /B/L LE extremity tendernes Discharge Goals Goal(s): Decrease discomfort, Improve function, Improve disease control Activity Recommendations Activity Limitations: resume your previous activity (as tolerated) . Instructions / Follow-Up Instructions / Follow-Up Follow up with your primary care provider once discharge from rehab ( Please call to schedule for the appointment) Please call to schedule follow up appointment with hematology Dr. [address] [place] [address] Follow up with pain management as an outpatient if needed Continue monitor INR (INR 3.1 today) Notify your physician if you develop any bleeding Avoid any NSAIDs (naproxen/aleve/motrin/ibuprofen/meloxicam/celebrex,....) due to risks of bleeding Check INR tomorrow or Friday You will need to follow up with the Coumadin clinic once discharge from rehab Continue Physical therapy and Occupational therapy Fall precaution Do not drive or operate any machine after taking the narcotic/gabapentin Consider reduce gabapentin once your pain improves ( can cause lethargy and drowsiness) Do not consume any alcohol Baclofen uses as needed for muscles spasm Please advise your family member to have genetic counseling and testing for MTHFR [id number] and Factor V leiden mutation are hereditary Check Lupus anticoagulant in 3 months (Hematology doctor will order it in your next follow up appointment) Starting on Iron tablet for Anemia (you will need outpatient work up for the anemia once you are stable) Medication Instructions: * Warfarin is a medicine prescribed to prevent blood clots * Warfarin will thin your blood and help prevent new clots * Take your medications exactly as directed * Never skip a dose. Never take a double dose. If you miss a dose, take it as soon as you remember * It is important for your doctor to monitor your prothrombin time (PT). This is a lab test * Keep your appointment for lab tests Risk of Adverse Drug Reactions and Interactions: * Warfarin increases your risk of bleeding * The food you eat and other medications you take can affect how Warfarin works in your body * Ask your doctor about daily aspirin therapy * It is very important to talk with your doctor about all of the other medicines , antibiotics, vitamins or herbal products that you are taking * All of your medication must be approved by your doctor, including new medicines, as well as medicines you have taken before you started taking Warfarin Diet: * In order for Warfarin to work properly, it is important to keep your intake of Vitamin K as consistent as possible * You should avoid any sudden change in Vitamin K intake * Report any significant changes in your diet or weight to your doctor Call your Primary Care doctor if you experience any of the following: * Swelling or Pain in your leg * Sudden, continuous pain deep in a muscle * Pain that worsens when you are active or when you stand still for a long time * Chest Pain * Sudden Shortness of Breath * Rapid or pounding heart beat * Fainting * Dizziness * Cough with blood or bloody sputum * Sweating more than normal * Bruises * Heavy or uncontrolled bleeding * Blood in your urine, stool or vomit * Black or tarry stools Caring for Your Self at Home: * Avoid sitting, standing or lying down for long periods without moving your legs and feet * When traveling by car, stop to get out and move around at least once every 3 hours * On long airplane, train or bus rides, get up and move around when possible * If you can't get up, wiggle your toes and tighten your calves to keep your blood moving Follow Up: It is important for you to keep your follow up appointments with your medical provider. Current Hospital Diet Patient's current hospital diet: Regular Diet Discharge Diet Recommended Diet: Regular Diet Pending Studies Studies pending at discharge: yes List of pending studies: Homocysteine and Methylmalonic acid result pending Medical Emergencies . Who to Call and When: Medical Emergencies: If at any time you feel your situation is an emergency, please call 911 immediately. . Non-Emergent Contact Non-Emergency issues call your: Primary Care Provider Call Non-Emergent contact if: your pain is not controlled, your pain is worsening, you have any medication questions . . "Provider Documentation" section prepared by Richard Delarosa. . VTE Core Measure Inpt VTE Proph given/why not?: Warfarin (Coumadin), Other Anticoagulation ( heparin drip)
[2017-10-10] MEDS ORDERED: OXYCODONE HCL IR 5 MG TAB (IMMEDIATE RELEASE) PO ONE (17:30)
[2017-10-10 17:45] VITALS: BP 117/72; PULSE 92; TEMP 37.1; O2SAT 95
--- NOTE | 2017-10-10 17:47 | Discharge Summary ---
Discharge Summary Date of Service Oct 10, 2017. Discharge Summary Admission Date: Oct 02, 2017 at 06:21 Discharge Date: Oct 10, 2017 Discharge Disposition: Rehab Principal Diagnosis: B/L LE DVT Secondary Diagnoses/Problems: Ambulatory dysfunction B/L LE extremity tenderness Anemia NF-known spinal tumors Opioid-induced constipation Chronic back pain Procedures: BILATERAL LOWER EXTREMITY VENOUS DOPPLER CLINICAL HISTORY: Evaluate for extension of deep venous thrombus. COMPARISON STUDY: Left lower extremity Doppler ultrasound October 02, 2017 and CTA of the abdomen and pelvis October 02, 2017. TECHNIQUE: Sonography of the deep venous system of the bilateral lower extremities was performed. Compression and augmentation were evaluated. FINDINGS: Note is made of extensive deep venous thrombus within each lower extremity. The thrombus extends from the bilateral common femoral veins through the calf vessels. The thrombus is largely occlusive. There is also extensive thrombus within the bilateral common iliac, external iliac and internal iliac veins, as shown on prior CT of October 02, 2017. IMPRESSION: Massive deep venous thrombus throughout the bilateral lower extremities, bilateral common iliac, internal iliac and external iliac veins, as shown on CT of October 02, 2017. IVC not well-visualized on this exam but extensive thrombus within the IVC on prior CTA. Electronically signed by: Didier Adam M.D. 10/09/2017 10:18 AM Dictated Date/Time: 10/09/2017 10:14 AM [~ rep ct add3]] Brain MRI WITH AND WITHOUT CONTRAST HISTORY: headache, rule out intracranial lesion TECHNIQUE: Multiplanar multisequence MRI of the brain was performed both before and after the intravenous administration of contrast. COMPARISON STUDY: Brain MRI 01/14/2007. FINDINGS: There are no areas of restricted diffusion to suggest acute infarction. Incidental is made of a partially empty sella. Otherwise, the midline structures are intact. Mild mucosal thickening and small fluid levels within the bilateral maxillary sinuses. There is also mild mucosal thickening within the ethmoid air cells. The orbits are unremarkable. The mastoid air cells are clear. The ventricles and sulci are within normal limits for age. There is no mass, hematoma, midline shift. The major vascular flow-voids at the skull base are well maintained. Postcontrast sequences show no areas of abnormal enhancement. IMPRESSION: 1. No acute intracranial abnormality. 2. Acute maxillary sinusitis. Electronically signed by: Sal Fonseca M.D. 10/02/2017 10:29 PM Dictated Date/Time: 10/02/2017 10:21 PM ANGIO ABD/PELVIS WITH CONTRAST CLINICAL HISTORY: 47 years-old Male presenting with EXTENSIVE DVT, BACK PAIN, pain in the left leg radiating into the back. TECHNIQUE: Multidetector CT angiography of the abdomen and pelvis was performed after the administration of intravenous contrast. 3-D volumetric and/or maximum intensity projection (MIP) images were subsequently reconstructed for review. IV contrast: 120 mL of Optiray 320. A dose lowering technique was used consistent with the principles of ALARA (as low as reasonably achievable). Stenosis measurements were based on NASCET-like criteria. COMPARISON: Ultrasound from earlier the same day. CT DOSE (mGy.cm): The estimated cumulative dose is 1618.79 mGy.cm. FINDINGS: Law Researcher topogram: Unremarkable. Lung bases: Minimal dependent changes likely atelectasis. Normal heart size. No pericardial or pleural effusion. Liver: Normal morphology. No liver lesion allowing for the arterial phase of contrast. Conventional hepatic arterial anatomy. Biliary: No intrahepatic or extrahepatic biliary ductal dilatation. Normal gallbladder. Pancreas: Normal. Spleen: Normal. Adrenal glands: Normal. Kidneys and ureters: No nephrolithiasis. No hydronephrosis. Normal parenchymal enhancement though the left kidney appears mildly enlarged relative to the right. The kidneys have not yet excreted contrast. Mild right pelvocaliectasis. Multiple parapelvic cysts suspected in the left kidney. Mild left pelviectasis. The ureters are mildly dilated. No obstructing calculus. The right renal veins are patent. The proximal left renal veins are patent though abrupt cut off of the left renal vein noted proximal to the left lateral aspect of the aorta with multiple collateral veins providing drainage via lumbar vessels as well as the azygos/hemiazygos systems. Renal arteries patent. Bladder: Bladder is elongated and incompletely distended with mild circumferential bladder wall thickening and mild perivesicular fat stranding most pronounced in the space of Retzius. Pelvic organs: Prostate and seminal vesicles normal. Bowel: Mild stool burden in normal caliber colon. The appendix is normal. No bowel obstruction. Peritoneal cavity: No free fluid or intraperitoneal gas. However, extensive retroperitoneal fluid is noted in the extraperitoneal portion of the pelvis and extending superiorly in the retroperitoneum below the level of the kidneys. Lymph nodes: No enlarged lymph nodes in the abdomen or pelvis. Vasculature: The aorta is patent and normal in caliber. The IVC is occluded below the level of the right renal vein. Multiple collateral veins evident at the level of the renal arteries with drainage pathways into the azygos/hemiazygos systems. Some of these collateral veins as well as the lower portion of the IVC are occluded with thrombus. Thrombus expands the bilateral common, internal, and external iliac veins tremendous with surrounding edema noted. These changes extend to the proximal lower extremities. Pre and postcontrast imaging does not image straight convincing evidence of enhancement of the thrombus. Abdominal wall: Normal. Musculoskeletal: Normal. IMPRESSION: 1. Massive amount of occlusive thrombus in the IVC, collateral veins, bilateral common, external, and internal iliac veins extending into the lower extremities. The expansion of the venous diameter could raise concern for tumor thrombus, though no enhancement is appreciated comparing pre and postcontrast imaging to substantiate this. Findings most consistent with extensive bland thrombus. Such extensive deep venous thrombosis could suggest an underlying coagulation disorder or autoimmune disease such as antiphospholipid syndrome. 2. Retroperitoneal fluid likely secondary to venous obstruction. 3. Mild bladder wall thickening with an elongated bladder configuration possibly suggesting underlying neurogenic bladder or cystitis. Correlate with urinalysis. 4. Possible mild bilateral hydronephrosis, which could be a functional obstruction from retroperitoneal fluid/venous obstruction. The report will be called/faxed according to standard departmental protocol. Electronically signed by: Jeff Jon M.D. 10/02/2017 10:01 AM Dictated Date/Time: 10/02/2017 7:[address] ANGIOGRAM OF THE CHEST COMBO CLINICAL HISTORY: Deep venous thrombosis. COMPARISON STUDY: No priors. TECHNIQUE: Before and following the IV administration of 120 cc of Optiray 320, CT angiogram of the chest was performed from the upper abdomen to the thoracic inlet utilizing the pulmonary embolus protocol. Images are reviewed in the axial, sagittal, and coronal planes. 3-D MIPS images are created and assessed. IV contrast was administered without complication. A dose lowering technique was utilized adhering to the principles of ALARA. The examination is significantly degraded by poor contrast opacification of the pulmonary arteries. FINDINGS: Thyroid: Imaged portions of the thyroid gland are normal in size and attenuation. Thoracic aorta: The thoracic aorta is normal in caliber and demonstrates standard 3-vessel arch anatomy. No dissection is seen. Pulmonary vasculature: The pulmonary trunk is normal in caliber. There are no central filling defects identified in main or lobar pulmonary branches to suggest pulmonary embolus. Evaluation of the peripheral vessels is severely degraded by poor contrast opacification. Heart: The heart is top normal in size and without pericardial effusion. Lungs and pleural spaces: The lungs and pleural spaces are clear noting dependent atelectasis. The trachea and central airways are patent. Mediastinum: There is no mediastinal lymphadenopathy. There is prominence of the azygos vein. Katie: Clear. Axillae: There is no axillary lymphadenopathy. Upper abdomen: See report of abdominal CT performed concurrently for intra-abdominal findings. Skeletal structures: No lytic or blastic bony lesions are seen. IMPRESSION: 1. Examination is severely degraded by poor contrast opacification of pulmonary arteries. 2. There is no evidence of central pulmonary embolus in the main or lobar branches. The segmental and subsegmental branches cannot be assessed. 3. The lungs are clear. Electronically signed by: Wiliam Calzada M.D. 10/02/2017 7:36 AM Dictated Date/Time: 10/02/2017 7:30 AM Consultations: [facility] Medication Reconciliation New Medications: Baclofen (Baclofen) 10 Mg Tab 10 MG PO TID PRN for pain/spasm/tightness for 5 Days, #15 TAB Ferrous Sulfate (Ferrous Sulfate) 325 Mg Tab 325 MG PO QAM for 30 Days, #30 TAB Gabapentin (Gabapentin) 300 Mg Cap 300 MG PO TID for 5 Days, #15 CAP Nortriptyline HCl (Nortriptyline HCl) 25 Mg Cap 25 MG PO HS for 5 Days, CAP Polyethylene (Miralax) 17 Gm Pow 17 GM PO DAILY PRN for Constipation for 7 Days Warfarin Sod (Coumadin) 5 Mg Tab 5 MG PO DAILY@16 for 30 Days, TAB Changed Medications: Oxycodone Immediate Rel Tab (Roxicodone Ir) 5 Mg Tab 1-2 TAB PO Q6H PRN for Severe Pain, #10 TAB (Changed from: Q4H; 25; Removed Instructions) Continued Medications: Albuterol Hfa (Ventolin Hfa) 200 Puffs/68942 Mcg Aers 2-4 PUFFS INH Q6H PRN for SOB/Wheezing Fluticasone Propionate (Nasal) (Flonase Allergy Relief) 50 Mcg/Act Spr 1 SPRAY RAJAN UD PRN for ALLERGIES Ondasetron Odt (Zofran Odt) 4 Mg Tab 4 MG SL Q6H PRN for Nausea or Vomiting, #20 TAB Admission Information HPI (per Admitting provider): CHIEF COMPLAINT: Left leg pain and swelling, back pain. HISTORY OF PRESENT ILLNESS: History obtained from the patient, , and records. 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 About 16 years ago patient had low back pain with radiation to the left lower extremity, stinging pain as per patient account. Abnormal back MRI done at [facility], which showed possible spine neurofibromas. Patient sent to [facility] in [place] for evaluation. No blood test to the patient's recollection. Specialist recommended lumbar spine MRIs every 5 years. Improved back pain, left lower extremity pain symptoms interim. About 2 weeks ago, patient had recurrence of achy left back pain going to the left leg worse with ambulation and movement. No fever, no chills. Does not recall any recent trauma. The patient has numbness on the leg. Denies bowel or bladder incontinence. Patient had not been able to move as much since the weekend. Seen at the ER a few days ago. MRI showed : 1. Neurofibromatosis perhaps slightly increased in prominence in the low lumbar region compared to the prior study. 2. No major compromise of the spinal canal. 3. Improved L4-L5 changes compared to the prior exam. The right posterior bulging disc is diminished in prominence. 4. Considerable degenerative disc change stable from the prior study. 5.Slightly progressive left paraspinous soft tissue prominence in a greatest dimension of 2.0 cm. Patient discharged on steroid and narcotic prescription. No improvement. Patient would fall asleep after narcotic prescription but intolerable pain would still be there when he woke up. Constipation noted. Orthopedics spine outpatient evaluation. No clarification if symptoms related to abnormal back MRI as per patient. Provider worried about slightly progressive left paraspinous soft tissue prominence on MRI as per patient account. Told to follow up with PCP for possible CT abdomen and pelvis. Worsening back, left leg pain and LLE swelling worsening. Denies chest pain or shortness of breath. No fever, no chills, no black, no bloody stools. Denies dysuria symptoms. Patient returned to the emergency room for intractable symptoms. Physical Exam (per Admitting): Vital signs: Blood pressure was noted to be 132/82, pulse 90, RR 18 T 37 O2sats 98RA. GENERAL: anxious, uncomfortable, no respiratory distress. SKIN: Pallor and warm. HEENT: Runnells palpebral conjunctivae. No ptosis. Dry mucosa. NECK: No JVD. Supple. No tenderness. CHEST: Clear to auscultation. No tenderness. HEART: Regular rate and rhythm, no murmur. ABDOMEN: Soft, nontender. RECTAL : Intact sphincter, brown stool, heme negative BACK : Some tenderness in the left lower back. limited SLR L EXTREMITIES: Tender swollen LLE. NEUROLOGIC: Coherent, no gross focality. Gait and stance not assessed. 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 Hem/onc on board has been on heparin drip Coumadin was on hold yesterday due to IND 3.4 Resume Coumadin at a lower dose D/C IV heparin since INR has been therapeutic for more than 48 hrs and pt has been on heparin drip for more than 5 days Continue monitor INR NO signs of PE and CTA chest showed no evidence for PE Vascular was consulted recommended to treat with anticoagulant/No IVC filter placement/ No thrombectomy Will need to follow with Hem/onc as an outpatient 10/10 INR 3.1 today Will discharge on coumadin 5 mg Case discussed with Hematology yesterday Positive for 1 copy of Factor V leiden mutation which makes him at increased risk of venous thromboembolism 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 homocysteine was slightly elevated, repeat homocysteine pending Advised pt family members should get genetic testing for MTHFR and Factor V leiden mutation Lupus anticoagulant was weakly positive so recommend rechecking this in 3 months (>12 weeks) Will need coumadin indefinite as per hematology Continue monitor INR Follow with the coag clinic Ambulatory dysfunction B/L LE extremity tenderness Secondary to massive extensive DVT B/L Pt has not been moving much PT on board recommended inpatient rehab skilled to optimize his functional mobility pain management on board Continue oxycodone 5-10 mg q6h Starting on baclofen 10mg q8hm, gabapentin 300mg q8h and nortriptyline Consider to reduce pain med once pain improve Continue PT/OT plan to go to rehab Pain improved Anemia Low iron level starting on iron supplement Will need outpatient work up for Anemia Continue monitor CBC NF-known spinal tumors Ortho spine consulted and reviewed imaging Recommended no surgical intervention since there is no neural compression Denies any bowel or bladder loss Continue monitor Chronic back pain Continue pain controlled Opioid-induced constipation Continue stool softeners and PRN Miralax. DVT px INR 3.1 today Will give coumadin 5 mg CODE STATUS Full Code Disposition Will discharge to rehab today Total time spent on discharge = 40 minutes This includes examination of the patient, discharge planning, medication reconciliation, and communication with other providers. Discharge Instructions Discharge Instructions Date of Service Oct 10, 2017. Admission Reason for Admission: Dvt Of Left Lower Extremity Discharge Discharge Diagnosis / Problem: B/L Lower extremities DVT/Ambulatory dysfunction /B/L LE extremity tendernes Discharge Goals Goal(s): Decrease discomfort, Improve function, Improve disease control Activity Recommendations Activity Limitations: resume your previous activity (as tolerated) . Instructions / Follow-Up Instructions / Follow-Up Follow up with your primary care provider once discharge from rehab ( Please call to schedule for the appointment) Please call to schedule follow up appointment with hematology Dr. [facility] [place] [address] Follow up with pain management as an outpatient if needed Continue monitor INR (INR 3.1 today) Notify your physician if you develop any bleeding Avoid any NSAIDs (naproxen/aleve/motrin/ibuprofen/meloxicam/celebrex,....) due to risks of bleeding Check INR tomorrow or Friday You will need to follow up with the Coumadin clinic once discharge from rehab Continue Physical therapy and Occupational therapy Fall precaution Do not drive or operate any machine after taking the narcotic/gabapentin Consider reduce gabapentin once your pain improves ( can cause lethargy and drowsiness) Do not consume any alcohol Baclofen uses as needed for muscles spasm Please advise your family member to have genetic counseling and testing for MTHFR C677T and Factor V leiden mutation are hereditary Check Lupus anticoagulant in 3 months (Hematology doctor will order it in your next follow up appointment) Starting on Iron tablet for Anemia (you will need outpatient work up for the anemia once you are stable) Medication Instructions: * Warfarin is a medicine prescribed to prevent blood clots * Warfarin will thin your blood and help prevent new clots * Take your medications exactly as directed * Never skip a dose. Never take a double dose. If you miss a dose, take it as soon as you remember * It is important for your doctor to monitor your prothrombin time (PT). This is a lab test * Keep your appointment for lab tests Risk of Adverse Drug Reactions and Interactions: * Warfarin increases your risk of bleeding * The food you eat and other medications you take can affect how Warfarin works in your body * Ask your doctor about daily aspirin therapy * It is very important to talk with your doctor about all of the other medicines , antibiotics, vitamins or herbal products that you are taking * All of your medication must be approved by your doctor, including new medicines, as well as medicines you have taken before you started taking Warfarin Diet: * In order for Warfarin to work properly, it is important to keep your intake of Vitamin K as consistent as possible * You should avoid any sudden change in Vitamin K intake * Report any significant changes in your diet or weight to your doctor Call your Primary Care doctor if you experience any of the following: * Swelling or Pain in your leg * Sudden, continuous pain deep in a muscle * Pain that worsens when you are active or when you stand still for a long time * Chest Pain * Sudden Shortness of Breath * Rapid or pounding heart beat * Fainting * Dizziness * Cough with blood or bloody sputum * Sweating more than normal * Bruises * Heavy or uncontrolled bleeding * Blood in your urine, stool or vomit * Black or tarry stools Caring for Your Self at Home: * Avoid sitting, standing or lying down for long periods without moving your legs and feet * When traveling by car, stop to get out and move around at least once every 3 hours * On long airplane, train or bus rides, get up and move around when possible * If you can't get up, wiggle your toes and tighten your calves to keep your blood moving Follow Up: It is important for you to keep your follow up appointments with your medical provider. Current Hospital Diet Patient's current hospital diet: Regular Diet Discharge Diet Recommended Diet: Regular Diet Pending Studies Studies pending at discharge: yes List of pending studies: Homocysteine and Methylmalonic acid result pending Medical Emergencies . Who to Call and When: Medical Emergencies: If at any time you feel your situation is an emergency, please call 911 immediately. . Non-Emergent Contact Non-Emergency issues call your: Primary Care Provider Call Non-Emergent contact if: your pain is not controlled, your pain is worsening, you have any medication questions . . "Provider Documentation" section prepared by Richard Delarosa. . VTE Core Measure Inpt VTE Proph given/why not?: Warfarin (Coumadin), Other Anticoagulation ( heparin drip) Additional Copies To Al Whitney D.O. [facility]
[2017-10-10] MEDS ORDERED: NORTRIPTYLINE HCL 25 MG CAP PO SCH (21:00)
[2017-10-14 06:05] LABS: METHYLMALONIC ACID 131 NMOL/L (87-318)
== END 2017-10-10 18:15 | DRG 300 ==
LOC: C.EDB 01:13 → C.MS2W 06:21 → ENRESERV 06:39
PROVIDERS: ADMIT Hospitalist; ATTEND Internal Medicine
DX: I82.423 Acute embolism and thrombosis of iliac vein, bilateral (principal); D68.51 Activated protein C resistance; K59.03 Drug induced constipation; T40.2X5A Adverse effect of other opioids, initial encounter; D69.6 Thrombocytopenia, unspecified; Q85.00 Neurofibromatosis, unspecified; M54.9 Dorsalgia, unspecified; G89.29 Other chronic pain; J45.909 Unspecified asthma, uncomplicated; Z79.899 Other long term (current) drug therapy

== ENCOUNTER → 2018-03-03 | Outpatient (CLI) | payer OTHER ==
[~2018-03-03] MED LIST changes: +CMD5 PO; +FRRS300 PO; +LRS10 PO; -METH4PAK PO; +MRLP17X PO; +NRN300 PO; +NRT25 PO
--- NOTE | 2018-03-03 10:49 | DIAGNOSTIC IMAGING REPORT ---
ULTRASOUND VENOUS DOPPLER LWR EXT BILA CLINICAL HISTORY: Lower extremity edema. History of DVT. COMPARISON STUDY: 10/09/2017 FINDINGS: Bilateral lower extremity DVT is again evident. On the right there is involvement of the common femoral, profunda, superficial femoral, popliteal, posterior tibial and peroneal veins. On the left there is involvement of the common femoral profunda superficial femoral and posterior tibial veins. IMPRESSION: Persistent extensive bilateral lower extremity DVT. Electronically signed by: Krzysztof Cain M.D. 03/03/2018 10:48 AM Dictated Date/Time: 03/03/2018 10:47 AM
== END | disposition home or self-care (01) ==
LOC: C.ULTR 09:35
PROVIDERS: ATTEND Internal Medicine Hematology & Oncology
DX: I82.4Y3 Acute embolism and thrombosis of unspecified deep veins of proximal lower extremity, bilateral (principal); R60.0 Localized edema